=== PATIENT | male | born 1955 | race Two or more races ===

== ENCOUNTER 2020-04-01 08:09 | Outpatient (REF) | payer OTHER, SELFPAY ==
[2020-04-01 09:05] LABS: MANUAL DIFF FLAG NO
[2020-04-01 09:07] LABS: Basophils Percent Auto 0.3 % (0-2); Eosinophils Absolute Auto 0.5 X10*3/uL (0.0-0.4); Eosinophils Percent Auto 5.3 % (0-4); Hematocrit 37.6 % (42-52); Hemoglobin 13.5 g/dl (14.0-18.0); Imm Gran Abs Auto 0.02 X10*3/uL (0.00-0.03); Imm Gran Pct Auto 0.2 % (0.0-0.4); Lymphocytes Absolute Auto 1.7 X10*3/uL (1.2-4.9); Mean Corpuscular HGB Conc 35.9 g/dl (31.0-36.0); Mean Corpuscular Hemoglobin 32.3 pg (27.0-33.0); Mean Platelet Volume 10.4 fL (9.4-12.4); Monocytes Absolute Auto 0.9 X10*3/uL (0.1-1.2); Monocytes Percent Auto 10.5 % (2-11); Neutrophils Absolute Auto 5.7 X10*3/uL (2.0-8.3); Neutrophils Percent Auto 64.7 % (45-73); Platelet Count 195 X10*3/uL (160-400); Red Blood Count 4.18 X10*6/uL (4.60-5.80); Red Cell Distribution Width 13.6 % (11.0-16.0); White Blood Count 8.7 X10*3/uL (4.8-10.8)
[2020-04-01 09:35] LABS: Alanine Aminotransferase 58 U/L (0-40); Albumin Level 4.1 g/dL (3.5-5.0); Alkaline Phosphatase 68 U/L (39-117); Anion Gap 12 (12-20); Aspartate Amino Transferase 26 U/L (5-37); Bilirubin Total 0.6 mg/dL (0.0-1.0); Blood Urea Nitrogen 15 mg/dL (9-16); Calcium 8.9 mg/dL (8.4-10.2); Carbon Dioxide 29 mmol/L (22-29); Chloride 105 mmol/L (96-108); Cholesterol 148 mg/dL; Estimated Glomerular Filt Rate > 60; Glucose Fasting 101 mg/dL (60-99); HDL Cholesterol 47 mg/dL; LDL Cholesterol Calculated 74 mg/dl; Potassium 4.7 mmol/l (3.3-5.1); Sodium 141 mmol/L (135-145); Total Protein 6.4 g/dL (6.5-8.0); Triglycerides 136 mg/dL
[2020-04-01 09:58] LABS: Prostate Specific Antigen 0.33 ng/mL (<0.05-4.0)
== END 2020-04-01 08:10 | disposition home or self-care (01) ==
LOC: HO.LAB 08:09
PROVIDERS: PCP Internal Medicine; Visit Provider Internal Medicine
DX: Z00.00 Encounter for general adult medical examination without abnormal findings (principal); E78.00 Pure hypercholesterolemia, unspecified; I10 Essential (primary) hypertension; G47.33 Obstructive sleep apnea (adult) (pediatric)
CPT/HCPCS: 36415; 80053; 80061; 84153; 85025

== ENCOUNTER → 2020-04-10 15:13 | Outpatient (BNVA) | payer OTHER, SELFPAY | PROVIDERS: PCP Internal Medicine; Visit Provider Hospitalist | DX: G47.33 Obstructive sleep apnea (adult) (pediatric) (principal); R06.00 Dyspnea, unspecified; I51.9 Heart disease, unspecified; Z99.89 Dependence on other enabling machines and devices | CPT/HCPCS: 99212 ==

== ENCOUNTER → 2020-06-18 14:38 | Outpatient (BNVA) | payer OTHER, SELFPAY | PROVIDERS: PCP Internal Medicine; Visit Provider Internal Medicine Cardiovascular Disease | DX: I20.8 Other forms of angina pectoris (principal) | CPT/HCPCS: 99212 ==

== ENCOUNTER → 2020-09-10 13:38 | Outpatient (BNVA) | payer OTHER, SELFPAY | PROVIDERS: PCP Internal Medicine; Visit Provider Internal Medicine Cardiovascular Disease | DX: I20.8 Other forms of angina pectoris (principal) | CPT/HCPCS: 99212 ==

== ENCOUNTER 2020-09-23 07:59 | Outpatient (REF) | payer OTHER, SELFPAY ==
[2020-09-23 08:53] LABS: MANUAL DIFF FLAG NO
[2020-09-23 09:05] LABS: Basophils Percent Auto 0.6 % (0-2); Eosinophils Absolute Auto 0.3 X10*3/uL (0.0-0.4); Eosinophils Percent Auto 4.8 % (0-4); Hematocrit 41.7 % (42-52); Imm Gran Abs Auto 0.02 X10*3/uL (0.00-0.03); Imm Gran Pct Auto 0.3 % (0.0-0.4); Lymphocytes Percent Auto 29.6 % (20-40); Mean Corpuscular Hemoglobin 31.6 pg (27.0-33.0); Mean Platelet Volume 10.3 fL (9.4-12.4); Monocytes Absolute Auto 0.6 X10*3/uL (0.1-1.2); Monocytes Percent Auto 9.1 % (2-11); Neutrophils Absolute Auto 3.8 X10*3/uL (2.0-8.3); Neutrophils Percent Auto 55.6 % (45-73); Platelet Count 221 X10*3/uL (160-400); Red Blood Count 4.74 X10*6/uL (4.60-5.80); Red Cell Distribution Width 12.7 % (11.0-16.0); White Blood Count 6.7 X10*3/uL (4.8-10.8)
[2020-09-23 09:29] LABS: Alanine Aminotransferase 37 U/L (0-40); Albumin Level 4.3 g/dL (3.5-5.0); Alkaline Phosphatase 76 U/L (39-117); Anion Gap 11 (12-20); Aspartate Amino Transferase 19 U/L (5-37); Bilirubin Total 0.8 mg/dL (0.0-1.0); Blood Urea Nitrogen 12 mg/dL (9-16); Calcium 9.6 mg/dL (8.4-10.2); Carbon Dioxide 30 mmol/L (22-29); Chloride 105 mmol/L (96-108); Cholesterol 165 mg/dL; Estimated Glomerular Filt Rate > 60; Glucose Random 97 mg/dL (60-115); HDL Cholesterol 48 mg/dL; Iron 145 mcg/dL (45-160); LDL Cholesterol Calculated 95 mg/dl; Percent Iron Saturation 54 % (15-50); Potassium 4.7 mmol/L (3.3-5.1); Sodium 141 mmol/L (135-145); Total Iron Binding Capacity 267 mcg/dL (228-428); Total Protein 6.9 g/dL (6.5-8.0); Triglycerides 114 mg/dL; Unsaturated Iron Binding 122 ug/dL
== END 2020-09-23 08:00 | disposition home or self-care (01) ==
LOC: HO.LAB 07:59
PROVIDERS: PCP Internal Medicine; Visit Provider Internal Medicine
DX: I25.10 Atherosclerotic heart disease of native coronary artery without angina pectoris (principal); I10 Essential (primary) hypertension; E78.00 Pure hypercholesterolemia, unspecified; D64.9 Anemia, unspecified
CPT/HCPCS: 36415; 80053; 80061; 83540; 85025

== ENCOUNTER → 2020-10-16 14:32 | Outpatient (BNVA) | payer OTHER, SELFPAY | PROVIDERS: PCP Internal Medicine; Visit Provider Hospitalist | DX: G47.33 Obstructive sleep apnea (adult) (pediatric) (principal); M79.89 Other specified soft tissue disorders; R06.00 Dyspnea, unspecified; I51.9 Heart disease, unspecified; Z99.89 Dependence on other enabling machines and devices | CPT/HCPCS: 99212 ==

== ENCOUNTER → 2020-12-17 14:14 | Outpatient (BNVA) | payer OTHER, SELFPAY | PROVIDERS: PCP Internal Medicine; Referring Provider Internal Medicine; Visit Provider Internal Medicine Cardiovascular Disease | DX: I20.8 Other forms of angina pectoris (principal) | CPT/HCPCS: 93005; 99212 ==

== ENCOUNTER 2021-01-01 07:28 | Outpatient (REF) | payer OTHER, SELFPAY ==
[2021-01-01 07:46] LABS: MANUAL DIFF FLAG NO
[2021-01-01 08:24] LABS: Basophils Percent Auto 0.6 % (0-2); Eosinophils Absolute Auto 0.3 X10*3/uL (0.0-0.4); Eosinophils Percent Auto 5.2 % (0-4); Hematocrit 39.4 % (42-52); Hemoglobin 14.2 g/dl (14.0-18.0); Imm Gran Abs Auto 0.01 X10*3/uL (0.00-0.03); Imm Gran Pct Auto 0.2 % (0.0-0.4); Lymphocytes Absolute Auto 1.6 X10*3/uL (1.2-4.9); Lymphocytes Percent Auto 32.9 % (20-40); Mean Corpuscular Volume 88.7 fL (80-98); Mean Platelet Volume 10.2 fL (9.4-12.4); Monocytes Absolute Auto 0.6 X10*3/uL (0.1-1.2); Neutrophils Absolute Auto 2.4 X10*3/uL (2.0-8.3); Neutrophils Percent Auto 49.1 % (45-73); Platelet Count 202 X10*3/uL (160-400); Red Blood Count 4.44 X10*6/uL (4.60-5.80); Red Cell Distribution Width 12.5 % (11.0-16.0); White Blood Count 4.8 X10*3/uL (4.8-10.8)
[2021-01-01 08:55] LABS: Alanine Aminotransferase 32 U/L (0-40); Albumin Level 4.4 g/dL (3.5-5.0); Alkaline Phosphatase 87 U/L (39-117); Anion Gap 11 (12-20); Aspartate Amino Transferase 19 U/L (5-37); Bilirubin Total 0.5 mg/dL (0.0-1.0); Blood Urea Nitrogen 12 mg/dL (9-16); Calcium 9.4 mg/dL (8.4-10.2); Carbon Dioxide 26 mmol/L (22-29); Chloride 107 mmol/L (96-108); Estimated Glomerular Filt Rate > 60; Glucose Random 107 mg/dL (60-115); Potassium 4.6 mmol/L (3.3-5.1); Sodium 139 mmol/L (135-145); Total Protein 6.8 g/dL (6.5-8.0)
== END 2021-01-01 07:29 | disposition home or self-care (01) ==
LOC: HO.LAB 07:28
PROVIDERS: PCP Internal Medicine; Visit Provider Internal Medicine
DX: I10 Essential (primary) hypertension (principal); I25.10 Atherosclerotic heart disease of native coronary artery without angina pectoris; E78.00 Pure hypercholesterolemia, unspecified
CPT/HCPCS: 36415; 80053; 85025

== ENCOUNTER → 2021-03-23 13:47 | Outpatient (BNVA) | payer OTHER, SELFPAY | PROVIDERS: PCP Internal Medicine; Referring Provider Internal Medicine; Visit Provider Internal Medicine Cardiovascular Disease | DX: I20.8 Other forms of angina pectoris (principal); I10 Essential (primary) hypertension | CPT/HCPCS: 99212 ==

== ENCOUNTER 2021-03-26 08:08 | Outpatient (REF) | payer OTHER, SELFPAY ==
[2021-03-26 08:33] LABS: MANUAL DIFF FLAG NO
[2021-03-26 08:59] LABS: Basophils Percent Auto 0.5 % (0-2); Eosinophils Absolute Auto 0.3 X10*3/uL (0.0-0.4); Eosinophils Percent Auto 5.4 % (0-4); Hematocrit 41.5 % (42.0-52.0); Hemoglobin 14.9 g/dl (14.0-18.0); Imm Gran Abs Auto 0.01 X10*3/uL (0.00-0.03); Imm Gran Pct Auto 0.2 % (0.0-0.4); Lymphocytes Percent Auto 33.7 % (20-40); Mean Corpuscular HGB Conc 35.9 g/dl (31.0-36.0); Mean Corpuscular Hemoglobin 31.8 pg (27.0-33.0); Mean Corpuscular Volume 88.7 fL (80.0-98.0); Mean Platelet Volume 10.1 fL (9.4-12.4); Monocytes Absolute Auto 0.6 X10*3/uL (0.1-1.2); Monocytes Percent Auto 10.3 % (2-11); Neutrophils Percent Auto 49.9 % (45-73); Platelet Count 226 X10*3/uL (160-400); Red Blood Count 4.68 X10*6/uL (4.60-5.80); Red Cell Distribution Width 12.7 % (11.0-16.0); White Blood Count 5.9 X10*3/uL (4.8-10.8)
[2021-03-26 09:21] LABS: Alanine Aminotransferase 42 U/L (0-40); Albumin Level 4.4 g/dL (3.5-5.0); Alkaline Phosphatase 89 U/L (39-117); Anion Gap 9 (12-20); Aspartate Amino Transferase 19 U/L (5-37); Bilirubin Total 0.8 mg/dL (0.0-1.0); Blood Urea Nitrogen 10 mg/dL (9-16); Calcium 9.9 mg/dL (8.4-10.2); Carbon Dioxide 31 mmol/L (22-29); Chloride 106 mmol/L (96-108); Cholesterol 133 mg/dL; Estimated Glomerular Filt Rate > 60; Glucose Fasting 126 mg/dL (60-99); HDL Cholesterol 44 mg/dL; LDL Cholesterol Calculated 70 mg/dl; Potassium 4.9 mmol/L (3.3-5.1); Sodium 141 mmol/L (135-145); Total Protein 6.8 g/dL (6.5-8.0); Triglycerides 99 mg/dL
[2021-03-26 09:35] LABS: Prostate Specific Antigen 0.23 ng/mL (<0.05-4.0)
== END 2021-03-26 08:09 | disposition home or self-care (01) ==
LOC: HO.LAB 08:08
PROVIDERS: PCP Internal Medicine; Visit Provider Internal Medicine
DX: Z12.5 Encounter for screening for malignant neoplasm of prostate (principal); R35.1 Nocturia; G47.33 Obstructive sleep apnea (adult) (pediatric); E78.00 Pure hypercholesterolemia, unspecified; I10 Essential (primary) hypertension; I25.10 Atherosclerotic heart disease of native coronary artery without angina pectoris
CPT/HCPCS: 36415; 80053; 80061; 84153; 85025

== ENCOUNTER 2021-06-26 12:35 | Outpatient (REF) | payer OTHER, SELFPAY ==
[2021-06-26 13:40] LABS: Anion Gap 13 (12-20); Blood Urea Nitrogen 11 mg/dL (9-16); Calcium 9.5 mg/dL (8.4-10.2); Carbon Dioxide 27 mmol/L (22-29); Chloride 105 mmol/L (96-108); Estimated Glomerular Filt Rate > 60; Glucose Random 104 mg/dL (60-115); Potassium 4.5 mmol/L (3.3-5.1); Sodium 140 mmol/L (135-145)
[2021-06-26 14:17] LABS: Estimated Average Glucose 105 mg/dL; Hemoglobin A1c % 5.3 %
== END 2021-06-26 12:36 | disposition home or self-care (01) ==
LOC: HO.LAB 12:35
PROVIDERS: PCP Internal Medicine; Visit Provider Internal Medicine
DX: I25.10 Atherosclerotic heart disease of native coronary artery without angina pectoris (principal); I10 Essential (primary) hypertension; R73.03 Prediabetes
CPT/HCPCS: 36415; 80048; 83036

== ENCOUNTER → 2021-07-14 13:51 | Outpatient (BNVA) | payer OTHER, SELFPAY | PROVIDERS: PCP Internal Medicine; Visit Provider Hospitalist | DX: G47.33 Obstructive sleep apnea (adult) (pediatric) (principal); R06.00 Dyspnea, unspecified; M79.89 Other specified soft tissue disorders; I51.9 Heart disease, unspecified; Z99.89 Dependence on other enabling machines and devices | CPT/HCPCS: 99212 ==

== ENCOUNTER 2021-08-03 14:21 | Emergency (ER) | payer MEDICAID, SELFPAY ==
--- NOTE | ~2021-08-03 | XR_ITS ---
EXAMINATION: XR KNEE, RIGHT CLINICAL INFORMATION: Injured 1 month ago COMPARISON: None TECHNIQUE: Four views of the right knee. FINDINGS: The bones of the knee are in alignment, normal in mineralization and calcification. There is no acute fracture. Best visualized on internal oblique radiograph there is somewhat linear calcification within the medial compartment, possibly relating to chondrocalcinosis of the medial meniscus. Soft tissues are otherwise unremarkable. There is mild medial joint space narrowing and spurring at the margin of the joint space. And soft tissues are normal. No fracture or joint effusion. No joint effusion. XR/XR knee RT 2V IMPRESSION: Mild medial joint space loss suspected chondrocalcinosis of the medial meniscus. No acute fracture.
[2021-08-03 15:31] VITALS: BP 154/89; PULSE 77; RESP 16; TEMP 36.4; O2SAT 97; BMI 38.0
--- NOTE | 2021-08-03 19:19 | ED.GENADULT ---
HPI - General Adult General Chief complaint: Extremity Injury, Lower Stated complaint: Right knee pain Time Seen by Provider: 08/03/21 19:19 Source: patient Limitations: language barrier (Hospital state assessed properties director utilized) History of Present Illness HPI narrative: This is a 65-year-old male who about 6 weeks ago had twisted his rightknee. He was seen at the clinic at work and was told he just had inflammation. The patient continues to have pain and has anterolateral knee. He denies any swelling. The pain is worse with ambulation, especially worse after he worked all day and tries to get into his car. He has tried acetaminophen for pain. Pain is moderately severe, achy Related Data Home Medications Medication Instructions Recorded Confirmed aspirin 81 mg tablet,delayed 81 mg PO DAILY 04/10/20 03/23/21 release atorvastatin 80 mg tablet 80 mg PO DAILY 04/10/20 03/23/21 metoprolol succinate 100 mg 100 mg PO DAILY 04/10/20 03/23/21 tablet,extended release 24 hr nitroglycerin 0.4 mg sublingual 0.4 mg SUBLINGUAL Q5M PRN 04/10/20 03/23/21 tablet lisinopril 10 mg tablet 10 mg PO DAILY 07/14/21 Previous Rx's Medication Instructions Recorded compr.stocking,knee,long,large #1 ea 07/14/21 ibuprofen 400 mg tablet 400 mg PO Q6H PRN #30 tab 08/03/21 Allergies Allergy/AdvReac Type Severity Reaction Status Date / Time No Known Allergies Allergy Verified 08/03/21 19:12 Review of Systems Review of Systems: Yes Other (As per HPI) Constitutional: Constitutional: Denies fever(s) [facility] Past Medical History Medical History (Updated 08/03/21 @ 19:43 by Hussein Louis MD) Dyspnea Heart disease Limb swelling LOWELL on CPAP Surgical History No pertinent past surgical history Family History Family History Mother Arrhythmia HTN (hypertension) Father No problems noted. Social History Social History Alcohol intake: never Patient Tobacco Use Status: Never used Tobacco Advance Directives: No Physical Exam ED Vital Signs: Vital Signs - 24 hr 08/03/21 15:31 Temperature 97.5 F Pulse Rate 77 Respiratory Rate 16 Blood Pressure 154/89 H Pulse Oximetry 97 BMI result Body Mass Index 38.0 Const General: no acute distress Orientation/consciousness: patient oriented x3 HENMT Head: Yes normal to inspection General nose exam: Normal external nose present Mouth: moist mucous membranes Throat: Yes posterior oropharynx normal, Yes tonsils normal and Yes uvula midline Eyes Eyelids: Yes eyelids normal Conjunctivae: conjunctivae normal Pupils: Equal, round and reactive pupils present Neck Neck: Yes supple Resp Effort & Inspection: normal respiratory effort Auscultation: clear to auscultation bilaterally Cardio Rate: regular rate Rhythm: regular rhythm Heart sounds: S1 normal heart sound present, S2 normal heart sound present, no gallops, no murmurs and no rubs GI Inspection: No distended Palpation (GI): Soft to palpation and nontender Auscultation: normal bowel sounds Skin General skin exam: other (Warm and dry) Neuro General: patient oriented x3 and CN's II-XI intact bilaterally Cranial nerves: Yes Equal, round and reactive pupils present Extrem Other: Right knee without any effusion. No laxity in the AP direction, no pain with valgus or varus strain. No erythema or warmth. Mild tenderness to anterior knee at about the junction with upper tibia. General: Yes no pedal edema Psych Affect: normal affect Attitude: cooperative Course Course Course Narrative: Patient with a knee injury, 6 weeks ago, has had pain to the right knee since then. X-ray shows no fracture. Patient needs orthopedic follow-up. Will place in a knee immobilizer and patient can use ibuprofen and acetaminophen. Medical Decision Making Imaging Data Knee x ray: Radiologist's impression: IMPRESSION: Mild medial joint space loss suspected chondrocalcinosis of the medial meniscus. No acute fracture. Discharge Plan Discharge Clinical Impression: Acute knee pain Patient Disposition: Home, Self-Care Instructions: Knee Pain (ED) Additional Instructions: Follow-up with orthopedics. Wear the knee immobilizer for the next 5 days. He can take it off all sleeping. Use ibuprofen as prescribed. Prescriptions: New ibuprofen 400 mg tablet 400 mg PO Q6H PRN (Reason: pain) Qty: 30 0RF No Action lisinopril 10 mg tablet 10 mg PO DAILY 0RF (DME) compr.stocking,knee,long,large Misc See Rx Instructions .ROUTE .MEDSUPPLY Qty: 1 0RF Rx Instructions: [id number] metoprolol succinate 100 mg tablet extended release 24 hr 100 mg PO DAILY 0RF atorvastatin 80 mg tablet 80 mg PO DAILY 0RF aspirin 81 mg tablet,delayed release (DR/EC) 81 mg PO DAILY 0RF nitroglycerin 0.4 mg tablet, sublingual 0.4 mg sublingual Q5M PRN0RF Rx Instructions: do not exceed 3 doses per episode Referrals: Salvatore Davila MD [Physician] - 1 week Stand Alone Forms: Work/School Release Interventions: ED Discharge Assessment Last Done: 08/03/21 20:36 Discharge Date/Time: 08/03/21 20:38
[2021-08-03] MEDS: Ibuprofen 400 MG TABLET PO (20:31)
== END 2021-08-03 20:38 | disposition home or self-care (01) ==
PROVIDERS: Emergency Provider Emergency Medicine; PCP Internal Medicine
DX: M25.561 Pain in right knee (principal); Z79.899 Other long term (current) drug therapy; Z79.82 Long term (current) use of aspirin
CPT/HCPCS: 73560; 99283

== ENCOUNTER 2021-08-24 08:12 | Outpatient (REF) | payer OTHER, SELFPAY ==
--- NOTE | ~2021-08-24 | XR_ITS ---
EXAMINATION: XR KNEE AP STANDING. RIGHT KNEE CLINICAL INFORMATION: Pain right knee COMPARISON: None TECHNIQUE: AP bilateral standing view of the knees was obtained. [place] view right knee. FINDINGS: AP bilateral standing: There is severe loss of medial compartment right knee joint space. Minimal loss of lateral compartment right knee and medial lateral compartment left knee joint space. No loose bodies or bony erosive changes seen. The soft tissues are normal. Right knee: [place] view of the right knee reveals lateral patellar spurring. No bony erosive changes. No loose bodies. The soft tissues are normal. XR/XR knee standing BI IMPRESSION: Severe loss of medial compartment right knee joint space without loose bodies or bony erosive changes. Mild degenerative changes lateral compartment right knee and medial lateral compartment left knee. Right patellar spurring without bony erosive changes right knee. The patellar femoral joint space is maintained normal.
--- NOTE | ~2021-08-24 | XR_ITS ---
EXAMINATION: XR KNEE AP STANDING. RIGHT KNEE CLINICAL INFORMATION: Pain right knee COMPARISON: None TECHNIQUE: AP bilateral standing view of the knees was obtained. [place] view right knee. FINDINGS: AP bilateral standing: There is severe loss of medial compartment right knee joint space. Minimal loss of lateral compartment right knee and medial lateral compartment left knee joint space. No loose bodies or bony erosive changes seen. The soft tissues are normal. Right knee: [place] view of the right knee reveals lateral patellar spurring. No bony erosive changes. No loose bodies. The soft tissues are normal. XR/XR knee RT 1V IMPRESSION: Severe loss of medial compartment right knee joint space without loose bodies or bony erosive changes. Mild degenerative changes lateral compartment right knee and medial lateral compartment left knee. Right patellar spurring without bony erosive changes right knee. The patellar femoral joint space is maintained normal.
== END 2021-08-24 08:13 | disposition home or self-care (01) ==
LOC: HO.HOSX 08:12
PROVIDERS: Visit Provider Physician Assistant
DX: M17.11 Unilateral primary osteoarthritis, right knee (principal)
CPT/HCPCS: 20610; 73560; 73565; 99202; J1040

== ENCOUNTER 2021-09-09 08:13 | Outpatient (REF) | payer OTHER, SELFPAY ==
--- NOTE | ~2021-09-09 | US_ITS ---
EXAMINATION: US VENOUS ULTRASOUND WITH DOPPLER LOWER EXTREMITY, RIGHT CLINICAL INFORMATION: Right leg pain. COMPARISON: None TECHNIQUE: Ultrasound of the deep veins is performed from the hip to the calf with compression sonography and color and pulse Doppler assessment. Spectral analysis with color-flow imaging is performed. FINDINGS: There is normal venous compression and respiratory variation and augmented flow. The visualized common femoral vein, superficial femoral vein, profunda femoral vein, popliteal vein, and the trifurcation region shows no evidence of deep venous thrombosis. There is no significant popliteal fossa cyst. If the patient's symptoms persist, followup ultrasound in 5 days 7 days might be of value to exclude proximal propagation from a non-visualized calf vein. US/US venous duplex LE RT IMPRESSION: No DVT demonstrated in the right lower extremity.
== END 2021-09-09 08:14 | disposition home or self-care (01) ==
LOC: HO.HMGCX 08:13
PROVIDERS: PCP Internal Medicine; Visit Provider Physician Assistant
DX: M17.11 Unilateral primary osteoarthritis, right knee (principal); M79.89 Other specified soft tissue disorders
CPT/HCPCS: 93971

== ENCOUNTER → 2021-09-17 12:13 | Outpatient (BNVA) | payer OTHER, SELFPAY | PROVIDERS: PCP Internal Medicine; Visit Provider Orthopaedic Surgery | DX: M17.11 Unilateral primary osteoarthritis, right knee (principal); M23.91 Unspecified internal derangement of right knee | CPT/HCPCS: 99212 ==

== ENCOUNTER 2021-09-29 15:56 | Outpatient (REF) | payer OTHER, SELFPAY ==
--- NOTE | ~2021-09-29 | MR_ITS ---
EXAMINATION: MR KNEE WITHOUT CONTRAST, RIGHT CLINICAL INFORMATION: Primary osteoarthritis right knee. COMPARISON: X-ray of the right knee August 2021. TECHNIQUE: MRI of the knee without contrast was performed using routine sequences on a high-field scanner. FINDINGS: There is image degrading motion artifact limiting the exam. MENISCI: Medial Meniscus: Evaluation is limited because of motion artifact. Question slight signal abnormality and blunting of the junction of the posterior horn and body suspicious but not definitive for meniscal tear. Lateral Meniscus: Intact. LIGAMENTS: Cruciate: Intact. Collateral: Intact. EXTENSOR MECHANISM: Intact. ARTICULAR CARTILAGE/BONE: Patellofemoral Compartment: Small subchondral cystic change in the medial facet of the patella with overlying cartilage heterogeneity. Trochlear cartilage normal. Overall mild patellofemoral arthrosis. Medial Compartment: There is nonuniform up to high-grade cartilage loss and/or heterogeneity throughout the weightbearing portion of the compartment. There are small marginal osteophytes. Findings indicative of [id number] arthrosis. Lateral Compartment: Normal. JOINT FLUID AND BURSAE: Mild joint effusion. MR/MR knee RT wo con IMPRESSION: Exam limited by artifact related to patient motion throughout the exam. Possible tear of the medial meniscus. Osteoarthritis most prominent in the medial compartment being mild to moderate.
== END 2021-09-29 15:57 | disposition home or self-care (01) ==
LOC: HO.MRI 15:56
PROVIDERS: Visit Provider Orthopaedic Surgery
DX: M17.11 Unilateral primary osteoarthritis, right knee (principal); M23.91 Unspecified internal derangement of right knee
CPT/HCPCS: 73721

== ENCOUNTER → 2021-11-05 12:39 | Outpatient (BNVA) | payer OTHER, SELFPAY | PROVIDERS: PCP Internal Medicine; Visit Provider Orthopaedic Surgery | DX: M23.91 Unspecified internal derangement of right knee (principal) | CPT/HCPCS: 99212 ==

== ENCOUNTER → 2021-12-10 13:36 | Outpatient (BNVA) | payer MEDICAID, SELFPAY | PROVIDERS: PCP Internal Medicine; Referring Provider Internal Medicine; Visit Provider Nurse Practitioner Family | DX: Z01.810 Encounter for preprocedural cardiovascular examination (principal); I25.118 Atherosclerotic heart disease of native coronary artery with other forms of angina pectoris; I10 Essential (primary) hypertension; G47.33 Obstructive sleep apnea (adult) (pediatric); Z79.899 Other long term (current) drug therapy; Z99.89 Dependence on other enabling machines and devices | CPT/HCPCS: 93005; 99212 ==

== ENCOUNTER → 2021-12-15 13:07 | Outpatient (BNVA) | payer MEDICAID, SELFPAY | PROVIDERS: PCP Internal Medicine; Visit Provider Surgery Vascular Surgery | DX: Z01.818 Encounter for other preprocedural examination (principal); I83.11 Varicose veins of right lower extremity with inflammation | CPT/HCPCS: 99202 ==

== ENCOUNTER 2021-12-23 05:51 | Day surgery (SDC) | payer MEDICAID, SELFPAY ==
[2021-12-23] VITALS (7 sets, daily range): BP systolic 118–153; BP diastolic 78–84; PULSE 71–79; RESP 13–18; TEMP 36.2–36.6; O2SAT 97–98; BMI 39.5
--- NOTE | 2021-12-23 07:22 | HO.ANESPROP2 ---
HPI - Anesthesia Eval Consult details Narrative: 66 M for right knee scope CAD multivessel s/p CATH , was advised to have CABG but patient refused . Patient seen by cardiology and being medically managed . As per cardiology patient is at least Moderate risk from Cardiac perspective in the perioperative period . The risks explained to the patient , patient accepts the increased risks . Also discussed with the surgeon . LOWELL PMFSH Active Problems Active Problems: All Active Problems (Updated 12/17/21 @ 15:01 by Carmencita Carlson RN) Stable angina (Acute) Essential hypertension (Acute) Osteoarthritis of right knee (Acute) Internal derangement of right knee (Acute) Atherosclerotic cardiovascular disease (Acute) Hx of cardiac catheterization (Acute) Preop cardiovascular exam (Acute) Varicose veins of right lower extremity with inflammation (Acute) Limb swelling (Acute) Heart disease (Acute) Dyspnea (Acute) LOWELL on CPAP (Acute) Past Medical History Medical History CAD (coronary artery disease) Dyspnea Heart disease HTN (hypertension) Limb swelling On beta marley at home LOWELL on CPAP Pre-diabetes Family History Family History Mother Arrhythmia HTN (hypertension) Father No problems noted. Family history of problems with anesthesia: No Surgical History Surgical History (Updated 12/23/21 @ 06:34 by Maxine Groves RN) Hx of colonoscopy Hx of hemorrhoidectomy No pertinent past surgical history History of Problems with Anesthesia: No Social History Social History Alcohol intake: never Patient Tobacco Use Status: Never used Tobacco Meds Allergies Allergy/AdvReac Type Severity Reaction Status Date / Time No Known Allergies Allergy Verified 12/23/21 06:08 Active Medications: Current Medications Lactated Ringer's (Lr) 1,000 mls @ 50 mls/hr IVCONT .Q20H [facility] Home Medications Medication Instructions Recorded Confirmed Last Taken Type nitroglycerin 0.4 mg sublingual 0.4 mg sublingual Q5M PRN Chest 04/10/20 12/17/21 Unknown History tablet Pain Exam Exam Date and Time: December 23, 2021721 Height,Weight and Vital Signs: Height 5 ft 8 in Weight 117.934 kg Last Vital Signs Temp 97.9 F 12/23/21 06:24 Pulse 79 12/23/21 06:24 Resp 18 12/23/21 06:24 BP 153/82 H 12/23/21 06:24 Pulse Ox 97 12/23/21 06:24 O2 Del Method 12/23/21 06:24 Airway Mallampati Class: IV TM Dist: <=3cm Neck ROM: Full Loose/Missing/Broken Teeth: Yes (Multiple chipped teeth ) Heart: S1,S2 Lungs: b/l breath sounds Assessment and Plan Assessment Anesthesia Assessment: Anesthesia Plan Discussed and Chart Reviewed Final Anesthetic Review Family History of Problems with Anesthesia: No History of Problems with Anesthesia: No NPO: Yes ASA Class: IV Final Preanesthetic Review: Meds/Allgs Chart Reviewed, Consent Obtained/Reviewed and Anes Risks/Benef Reviewed Patient Risk: High Procedure Risk: Intermediate Anesthetic Plan Anesthetic Plan: GA Disposition: Standard PACU
[2021-12-23] MEDS: Lactated Ringers 1,000 ML 50 ML IVCONT (07:26)
--- NOTE | 2021-12-23 07:33 | MHC.SHP ---
Pre-Procedural Eval Section A Date of Service: 12/23/21 The patient is an INPATIENT: No Changes since office visit: Yes Patient answered all questions; No Cold of Flu in the past 2 weeks, No New Medical Problems and No Changes in Medication The History & Physical has been completed within 30 days and I have reviewed it.: Yes Section B Chief Complaint: knee pain Allergies: Allergies Allergy/AdvReac Type Severity Reaction Status Date / Time No Known Allergies Allergy Verified 12/23/21 06:08 Plan I have reviewed the history and physical and performed a pertinent physical examination on my patient. No changes have occurred unless specified.
--- NOTE | 2021-12-23 08:31 | PM.OP ---
Brief Operative Note Date of Service: 12/23/21 Pre-op diagnosis: Right knee MMT Post-op diagnosis: other (1) right knee mmt 2) right knee arthritis) Procedure: partial medial meniscectomy right knee with chondroplasty Implants: none Surgeon: Salvatore Davila MD Anesthesia: GETA and local Was an Grounding Engineer used for this Procedure?: No Estimated blood loss (mL): 5 Tourniquet time (min): 17 IV fluids (mL): 600 Pathology: none sent Condition: stable Disposition: PACU
--- NOTE | 2021-12-23 08:36 | P.OP_ITS ---
Operative Note Operative Note Date of Service: 12/23/21 Narrative: Date of Service: 12/23/21 Pre-op diagnosis: Right knee MMT Post-op diagnosis: other (1) right knee mmt 2) right knee arthritis) Procedure: partial medial meniscectomy right knee with chondroplasty Implants: none Surgeon: Salvatore Davila MD Anesthesia: GETA and local Was an Machine Brush Maker used for this Procedure?: No Estimated blood loss (mL): 5 Tourniquet time (min): 17 IV fluids (mL): 600 Pathology: none sent Condition: stable Disposition: PACU Procedure in detail: Patient was brought to the operating room placed supine on the arthroscopic table and prepped and draped in standard sterile fashion. A time-out was called to identify proper site proper procedure proper surgeon and IV antibiotics per weight were administered. I began by exsanguinating the limb and insufflating tourniquet to 300 mm Hg. Then made a standard anterolateral stab incision. The knee was insufflated with water and 30 degree arthroscope was placed. There was grade 2 fibrillations of the patella but the suprapatellar pouch and the gutters were clean. I descended into the medial compartment where I made my medial portal under direct visualization. There was obvious of complex tear of the body and posterior horn of the medial meniscus. Root was intact and there were grade 2 changes with throughout the medial compartment. I used a combination of biter shaver and cautery to remove unstable portions of the meniscus. Approximately 40% of the meniscal volume was removed. Once I was satisfied with this the ACL was examined and found to be intact and the lateral compartment also was without the need for intervention. I perfromed a chondroplaty of the MFC and the PF joint with the tissue ablator, I then removed all instrumentation and closed the portals with skin glue. 25 mL of 2% Marcaine with epinephrine was injected into the joint and the surrounding soft tissues. Patient was then placed in sterile dressing extubated brought recovery room stable condition. There were no known complications.
[2021-12-23] MEDS: Acetaminophen 325 MG TABLET 650 MG PO (09:09)
== END 2021-12-23 10:42 | disposition home or self-care (01) ==
PROVIDERS: PCP Internal Medicine; Visit Provider Orthopaedic Surgery
PROC: (CPT 29870; principal; 2021-12-23 07:30)
DX: S83.231A Complex tear of medial meniscus, current injury, right knee, initial encounter (principal); M17.11 Unilateral primary osteoarthritis, right knee; X58.XXXA Exposure to other specified factors, initial encounter; Y93.9 Activity, unspecified; Y92.9 Unspecified place or not applicable; Y99.9 Unspecified external cause status; I25.10 Atherosclerotic heart disease of native coronary artery without angina pectoris; I10 Essential (primary) hypertension; E78.5 Hyperlipidemia, unspecified; G47.33 Obstructive sleep apnea (adult) (pediatric); Z79.82 Long term (current) use of aspirin; Z79.899 Other long term (current) drug therapy; Z99.89 Dependence on other enabling machines and devices
CPT/HCPCS: 29881; A4649; J0171; J0690; J2250; J2795; J3010

== ENCOUNTER 2021-12-29 14:53 | Outpatient (REF) | payer MEDICAID, SELFPAY ==
[2021-12-29 15:10] LABS: MANUAL DIFF FLAG NO
[2021-12-29 16:02] LABS: Basophils Absolute Auto 0.1 X10*3/uL (0.0-0.2); Basophils Percent Auto 0.6 % (0-2); Eosinophils Absolute Auto 0.2 X10*3/uL (0.0-0.4); Eosinophils Percent Auto 1.7 % (0-4); Hematocrit 42.1 % (42.0-52.0); Hemoglobin 15.3 g/dl (14.0-18.0); Imm Gran Abs Auto 0.04 X10*3/uL (0.00-0.03); Imm Gran Pct Auto 0.4 % (0.0-0.4); Lymphocytes Absolute Auto 1.7 X10*3/uL (1.2-4.9); Lymphocytes Percent Auto 18.8 % (20-40); Mean Corpuscular HGB Conc 36.3 g/dl (31.0-36.0); Mean Corpuscular Volume 88.1 fL (80.0-98.0); Mean Platelet Volume 10.5 fL (9.4-12.4); Monocytes Percent Auto 11.6 % (2-11); Neutrophils Percent Auto 66.9 % (45-73); Platelet Count 198 X10*3/uL (160-400); Red Blood Count 4.78 X10*6/uL (4.60-5.80); Red Cell Distribution Width 12.5 % (11.0-16.0)
[2021-12-29 16:24] LABS: Anion Gap 19 (12-20); Blood Urea Nitrogen 14 mg/dL (9-16); C Reactive Protein 1.06 mg/dL (< or = 0.50); Calcium 9.6 mg/dL (8.4-10.2); Carbon Dioxide 23 mmol/L (22-29); Chloride 104 mmol/L (96-108); Estimated Glomerular Filt Rate > 60; Glucose Random 76 mg/dL (60-115); Potassium 4.2 mmol/L (3.3-5.1); Sodium 142 mmol/L (135-145)
[2021-12-29 17:50] LABS: Appearance Urine Clear; Color Urine Dark Yellow; Glucose Urine UA Negative (Negative); Leukocyte Esterase Urine Negative (Negative); Nitrite Urine Negative (Negative); PH 5.5 (5.0-9.0); Specific Gravity - Urine >= 1.030 (1.005-1.025); UMIC TRIGGER UACC YES; Urine Blood Negative (Negative); Urine Ketones Trace mg/dL (Negative); Urine Protein 30 (1+) mg/dL (Neg-Trace)
[2021-12-29 17:57] LABS: Bacteria Urine None Seen (None Seen); Hyaline Casts Urine 0-2 /LPF (0-2); RBC Urine 0-2 /HPF (0-2); Squamous Epithelial Cell Urine 0-2 /HPF (0-2); WBC Urine 0-5 /HPF (0-5)
== END 2021-12-29 14:54 | disposition home or self-care (01) ==
LOC: HO.LAB 14:53
PROVIDERS: PCP Internal Medicine; Visit Provider Internal Medicine
DX: I10 Essential (primary) hypertension (principal); G47.33 Obstructive sleep apnea (adult) (pediatric); M25.561 Pain in right knee
CPT/HCPCS: 36415; 80048; 81001; 85025; 86140; 87086

== ENCOUNTER → 2022-01-25 13:47 | Outpatient (BNVA) | payer MEDICAID, SELFPAY | PROVIDERS: PCP Internal Medicine; Visit Provider Hospitalist | DX: G47.33 Obstructive sleep apnea (adult) (pediatric) (principal); M79.89 Other specified soft tissue disorders; R06.00 Dyspnea, unspecified; I51.9 Heart disease, unspecified; Z99.89 Dependence on other enabling machines and devices | CPT/HCPCS: 99212 ==

== ENCOUNTER 2022-03-02 14:00 | Outpatient (RCR) | payer MEDICAID, SELFPAY ==
--- NOTE | 2022-01-07 13:47 | MHC.PT.EP ---
[facility] [place] [facility] [place] [facility] [place] [facility] [address] Lilly Coleman [address] [phone] F: [phone] F: [phone] F: [phone] F: [phone] Physical Therapy Plan of Care Date of Evaluation: Date of Surgery: 12/23/2021 Diagnosis: R medial meniscectomy 12/23 (RC + BB) Assessment: pt is a 66 yo male presenting to physical therapy w/ diagnosis of R medial meniscectomy. He has signs and symptoms including decreased ROM, impaired gait mechanics and functional mobility, strength deficits, and pain. He has difficulty with ADLs such as transferring, standing for long periods of time, dressing, showering, ambulation, stairs, and bending. Pt is a good candidate for skilled PT d/t the pathology of his condition, motivation, and comorbidities. Pt will benefit from skilled PT to improve knee ROM, gait mechanics, functional mobility, strength, and stretching. Frequency and Duration: The patient will be seen 2x/week, 6 weeks Short Term Goals: pt will be I w/ HEP to promote self management of condition. pt will improve R knee extension to 0* to improve tolerance to standing and WB. Penitentiary Goals: pt will improve R knee flexion and extension strength to 5/5 to improve tolerance to transferring. pt will demonstrate proper gait mechanics w/ a SPC to improve ambulation and tolerance to gait. Treatment Plan: Modalities to reduce pain, spasms and effusion. Manual therapy to restore motion and function. Therapeutic exercise to improve strength and flexibility. Neuromuscular re-education for posture and balance. Therapeutic activities to return to functional activities of daily living. Electronically signed by: Millie Chong PT, DPT Please sign and return to therapist. Thank you for your referral.
--- NOTE | 2022-03-03 18:12 | MHC.PT.DC ---
[facility] [place] [facility] [place] [facility] [place] [facility] [address] Lilly Coleman [address] [facility] [phone] F: [phone] F: [phone] F: [phone] F: [phone] Physical Therapy Discharge Report Diagnosis: R medial meniscectomy 12/23 (RC + BB) Date of Surgery: 12/23/2021 Date of Evaluation: 01/07/22 Date of Discharge: 03/03/22 Treatments to Date: 12 Cancellations to Date: 0 No Shows to Date: 0 Discharge Status: Improved Function Independent with HEP Discharge Summary: The patient overall has improved regarding his knee pain intensity and frequency. He ambulates most of the time without an assistive device but continues to use one axillary crutch as needed. He has been educated to discharge the crutch but he continues to use it occasionally. He has achieved all goals established at the initial evaluation. He is independent with his home exercise program. He is discharged from this physical therapy plan of care to his home exercise program. Electronically signed by: Millie Chong PT, DPT Please sign and return to therapist. Thank you for your referral.
== END 2022-03-03 18:13 | disposition home or self-care (01) ==
LOC: HO.PT 14:00
PROVIDERS: PCP Internal Medicine; Visit Provider Physician Assistant
DX: M17.11 Unilateral primary osteoarthritis, right knee (principal); M23.91 Unspecified internal derangement of right knee
CPT/HCPCS: 97110; 97150; 97162; 97530

== ENCOUNTER → 2022-04-21 13:20 | Outpatient (BNVA) | payer MEDICAID, SELFPAY | PROVIDERS: PCP Internal Medicine; Referring Provider Internal Medicine; Visit Provider Internal Medicine Cardiovascular Disease | DX: I25.118 Atherosclerotic heart disease of native coronary artery with other forms of angina pectoris (principal); I10 Essential (primary) hypertension | CPT/HCPCS: 99212 ==

== ENCOUNTER → 2022-04-27 10:23 | Outpatient (REF) | payer MEDICAID, SELFPAY ==
--- NOTE | 2022-04-27 10:25 | CA_ITS ---
Transthoracic Echocardiogram Patient (Last, First, Middle): Austin Ortega D Gender: Male Date of : 1955 Age: 66 Procedure Date: 04/27/2022 Procedure Type: Transthoracic Echocardiogram Location: OP Height: 172.72 cm Weight: 115.67 kg BSA: 2.27 m2 Heart Rate: bpm BP: 124 / 80 mmHg Glove Factory Sewer: Referring MD: Lane Carrera MD Cooker Mechanic: Lane Carrera MD Symptoms: I20.8 - Other forms of angina pectoris Study Quality: Adequate on Apical views ECG Rhythm: Sinus Conclusions: - Normal left ventricular size and systolic function. There is mildly increased left ventricular wall thickness. The visually estimated ejection fraction is between 65-70%. - Diastolic function is normal for age. - Mildly increased right ventricular cavity size. There is normal right ventricular systolic function. - There is mild dilatation of the ascending aorta measuring 3.50 cm. Findings Left Ventricle Normal left ventricular size and systolic function. There is mildly increased left ventricular wall thickness. The visually estimated ejection fraction is between 65-70%. Regional wall motion abnormalities can not be excluded due to suboptimal endocardial definition. Diastolic function is normal for age. Right Ventricle Mildly increased right ventricular cavity size. There is normal right ventricular systolic function. Atria The left atrium is normal in size. The right atrium is normal in size. Aortic Valve The aortic valve was not well visualized. There is no aortic valve stenosis. There is no aortic valve regurgitation. Mitral Valve Normal mitral valve structure and function. There is no mitral valve regurgitation. There is no mitral valve stenosis. Pulmonic Valve The pulmonic valve is likely normal. Tricuspid Valve Likely normal tricuspid valve structure and function. Normal right atrial pressure. There is no evidence of pulmonary hypertension. Great Vessels There is mild dilatation of the ascending aorta measuring 3.50 cm. Venous The inferior vena cava is normal in size and collapses greater than 50% with inspiration. Pericardium/Pleural There is no evidence of pericardial effusion. Prior Study Comparison No prior study available for comparison. Measurements 2D Linear Measurements IVSd: 1.23 0.6-0.9/0.6-1.0 cm LVIDd: 3.93 3.9-5.3/4.2-5.9 cm LVIDd Index: 1.73 2.4-3.2/2.2-3.1 cm/m2 LVIDs: 2.66 2.0-3.6 cm LVPWd: 1.29 0.7-1.1 cm Ao Root: 3.50 2.1-3.5 cm LA Diam: 3.30 2.7-3.8/3.0-4.0 cm LAIDs Index: 1.45 1.5-2.3 cm/m2 LV Mass: 215.94 67-162/88-224 g LV Mass Index: 95.13 43-95/49-115 g/m2 LVOT Diam: 2.10 3.0+(-)1.3 cm 2D Systolic Function EF 4C: 66.70 >55% EF 2C: 58.10 >55% EF BiP: 63.80 >55% Mitral Valve MV Pk E: 0.61 MV PK A: 0.84 MV Decel Time: 159.00 E/A: 0.70 E'Lateral: 7.18 E'Medial: 7.40 E/E' Med: 8.30 E/E' Lat: 8.50 PHT: 47.00 MVA PHT: 4.68 Decel Reagan: 3.85 Aortic Valve AoV Pk Alejandro: 1.51 AoV Mn Alejandro: 1.08 AoV VTI: 0.32 AoV Pk Grad: 9.00 Aov Mn Grad: 5.00 AAKASH Cont.VTI: 2.74 LVOT LVOT Pk Alejandro: 1.17 LVOT Mn Alejandro: 0.78 LVOT VTI: 0.25 LVOT Pk Grad: 5.00 LVOT Mn Grad: 3.00 LVOT Diam: 2.10 LVOT Area: 3.46 Diastolic Function MV Pk E: 0.61 MV Pk A: 0.84 E/A: 0.70 E'Medial: 7.40 E/E' Med: 8.30 E' Laterial: 7.18 E/E' Lat: 8.50 Right Ventricle TVS' Alejandro: 16.00 Tricuspid Valve TR Pk Alejandro: 2.23 TR Pk Grad: 20.00 RA Press: 3.00 RVSP: 23.00 Great Vessels Aorta Ao Root-2D: 3.50 2.0-3.7 cm Ao Asc: 3.50 2.1-3.4 cm Pulmonary Valve PV Pk Alejandro: 1.15 Peak PV Grad: 5.00 Updated in Other Vendor System with Status of Final Lane Carrera MD electronically signed on 04/30/2022 10:15:55 AM with status of Final
== END ==
LOC: HO.CARD 10:23
PROVIDERS: Visit Provider Internal Medicine Cardiovascular Disease
DX: I20.8 Other forms of angina pectoris (principal)
CPT/HCPCS: 93306

== ENCOUNTER → 2022-04-29 13:16 | Outpatient (BNVA) | payer MEDICAID, SELFPAY | PROVIDERS: Visit Provider Orthopaedic Surgery | DX: M17.11 Unilateral primary osteoarthritis, right knee (principal) | CPT/HCPCS: 99212 ==

== ENCOUNTER 2022-04-30 08:02 | Outpatient (REF) | payer MEDICAID, SELFPAY ==
--- NOTE | ~2022-04-30 | US_ITS ---
EXAMINATION: US LOWER EXTREMITY VENOUS (REFLUX EXAM), BILATERAL CLINICAL INDICATION: Chronic venous insufficiency with lower extremity varicose veins COMPARISON: None. TECHNIQUE: Color flow triplex imaging and compression Doppler was performed to evaluate both the deep and the superficial systems bilaterally. To evaluate the superficial system, the examination was performed in the upright position. Color-flow Doppler ultrasound and compression ultrasound were utilized. In addition, maneuvers were utilized to demonstrate reflux. FINDINGS: 1. DEEP VENOUS ULTRASOUND OF THE RIGHT LOWER EXTREMITY: Common Femoral Vein: Compressible, normal respiratory variation and augmented flow. Femoral Vein: Compressible, normal color flow and augmentation. Popliteal Vein: Compressible, normal augmentation. Deep Reflux: There is reflux seen in the popliteal vein measuring 1404 ms There is no evidence of a Alas's cyst. 2. SUPERFICIAL ULTRASOUND WITH DOPPLER OF RIGHT LOWER EXTREMITY: GREAT SAPHENOUS VEIN: Saphenofemoral Junction: 1.1 cm; Reflux: 0 ms Proximal Thigh: 0.7 cm; Reflux: 0 ms Mid Thigh: 0.3 cm; Reflux: 0 ms Above Knee: 0.3 cm; Reflux: 0 ms At Knee: 0.2 cm; Reflux: 0 ms Below Knee: 0.3 cm; Reflux: 0 ms Mid Calf: 0.4 cm; Reflux: 0 ms Ankle: 0.3 cm; Reflux: 0 ms DUPLICATED MEDIAL GREAT SAPHENOUS VEIN: Diameter: None Imaged Reflux: NA DUPLICATED LATERAL GREAT SAPHENOUS VEIN: Diameter: 0.3 cm Reflux: None SMALL SAPHENOUS VEIN: Proximal: 0.4 cm; Reflux: 0 ms Distal: 0.5 cm; Reflux: 0 ms VEIN OF GIACOMINI: None Imaged. PERFORATORS: Location: Proximal, mid and distal calf Size: 0.2 to 0.6 cm Reflux: Ranging from 2212 ms to 3224 ms VARICOSITIES: Location: Proximal calf and distal calf Size: 0.3 to 0.4 cm Reflux: 3188 ms 3. DEEP VENOUS ULTRASOUND OF THE LEFT LOWER EXTREMITY: Common Femoral Vein: Compressible, normal respiratory variation and augmented flow. Femoral Vein: Compressible, normal color flow and augmentation. Popliteal Vein: Compressible, normal augmentation. Deep Reflux: There is no evidence of reflux in the deep system in either the common femoral vein or the popliteal vein. There is no evidence of a Alas's cyst. 4. SUPERFICIAL ULTRASOUND WITH DOPPLER OF LEFT LOWER EXTREMITY: GREAT SAPHENOUS VEIN: Saphenofemoral Junction: 0.6 cm; Reflux: 0 ms Proximal Thigh: 0.8 cm; Reflux: 2996 ms Mid Thigh: 0.3 cm; Reflux: 0 ms Above Knee: 0.2 cm; Reflux: 0 ms At Knee: 0.2 cm; Reflux: 0 ms Below Knee: 0.3 cm; Reflux: 0 ms Mid Calf: 0.2 cm; Reflux: 0 ms Ankle: 0.3 cm; Reflux: 0 ms DUPLICATED MEDIAL GREAT SAPHENOUS VEIN: Diameter: None Imaged Reflux: NA DUPLICATED LATERAL GREAT SAPHENOUS VEIN: Diameter: None Imaged Reflux: NA SMALL SAPHENOUS VEIN: Proximal: 0.4 cm; Reflux: 0 ms Distal: 0.3 cm; Reflux: 0 ms VEIN OF GIACOMINI: None Imaged. PERFORATORS: Location: None significant Size: NA Reflux: NA VARICOSITIES: Location: None Imaged Size: NA Reflux: NA US/US venous duplex LE BI IMPRESSION: Right: No significant venous insufficiency or reflux in the great saphenous vein or small saphenous vein. There is deep venous reflux in the right popliteal vein. Small varicose veins as described above Left: Focal reflux in the left great saphenous vein in the proximal thigh. No significant reflux is seen otherwise in the great saphenous vein and small saphenous vein
== END 2022-04-30 08:03 | disposition home or self-care (01) ==
LOC: HO.US 08:02
PROVIDERS: PCP Internal Medicine; Visit Provider Surgery Vascular Surgery
DX: I83.893 Varicose veins of bilateral lower extremities with other complications (principal)
CPT/HCPCS: 93970

== ENCOUNTER → 2022-05-12 10:26 | Outpatient (BNVA) | payer MEDICAID, SELFPAY | PROVIDERS: PCP Internal Medicine; Visit Provider Surgery Vascular Surgery | DX: I83.11 Varicose veins of right lower extremity with inflammation (principal); I89.0 Lymphedema, not elsewhere classified | CPT/HCPCS: 99212 ==

== ENCOUNTER → 2022-06-14 12:56 | Outpatient (BNVA) | payer MEDICAID, SELFPAY | PROVIDERS: PCP Internal Medicine; Visit Provider Orthopaedic Surgery | DX: M17.11 Unilateral primary osteoarthritis, right knee (principal) | CPT/HCPCS: 99212 ==

== ENCOUNTER 2022-06-25 11:00 | Outpatient (RCR) | payer MEDICAID, SELFPAY ==
[2022-05-31 11:01] VITALS: BP 166/92; PULSE 77
--- NOTE | 2022-05-31 15:42 | MHC.PT.EP ---
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 Pt HAS DECR MOBILITY IN LIAM HIPS AND Rt KNEE ROM DEFICITS, DECR STRENGTH IN LUMBOPELVIC/ PROX LEs, AND PAIN IN Rt KNEE. FUNCTIONALLY, Pt HAS DECR KRISTEN TO STANDING, WALKING , SQUATTING, AND HE COMPENSATES WITH HIS UEs W ALL TRANSFERS. Pt WOULD BENEFIT FROM PT TO ADDRESS THE ABOVE FINDINGS, AND , TO ASSIST Pt IN MEETING HIS GOAL OF RTW. 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 Manual therapy to restore motion and function. Therapeutic exercise to improve strength and flexibility. Neuromuscular re-education for posture and balance. Therapeutic activities to return to functional activities of daily living. Electronically signed by: LILI GARCIA,PT Please sign and return to therapist. Thank you for your referral.
--- NOTE | 2022-06-25 12:04 | MHC.PT.DC ---
[facility] [place] Office [place] Office [place] Office [address] Lilly Coleman [address] [phone] F: [phone] F: [phone] F: [phone] F: [phone] Physical Therapy Discharge Report Diagnosis: RIGHT KNEE OA Date of Surgery: Date of Evaluation: 05/31/22 Date of Discharge: 06/25/22 Treatments to Date: 7 Cancellations to Date: 0 No Shows to Date: 0 Discharge Status: Achieved Goals Improved Function Independent with HEP Discharge Summary: Pt HAS RESPONDED WELL TO RE-ENTRY TO PT AND RE-ISSUE OF HEP AND FUNCTIONAL TASKS. HE DID NOT HAVE ANY Rt KNEE PAIN AND DEMON EFFICIENT GAIT MECH WITHOUT ANY ASST DEVICES ON LEVEL GROUND AND STAIRS. HE HAS IMPROVED OVERALL W FUNCTIONAL MOBILITY, ESPEC EVIDENT W IMPROVED LEFI SCORE -> 12/80 AT EVAL 05/31/22 AND 26/80 TODAY AT D/C. WE HAVE ANSWERED Pt'S QUESTIONS, HE DENIES CONCERNS AND , WE HAVE REINFORCED THE UTMOST IMPORTANCE OF HEP / FITNESS WALKING CONTINUITY, ESPEC HIS NEXT ORTHO F/U IS IN AUGUST 2022. Pt REMAINS OOW UNTIL THAT TIME. Electronically signed by: LILI GARCIA,PT Please sign and return to therapist. Thank you for your referral.
== END 2022-06-25 12:07 | disposition home or self-care (01) ==
LOC: HO.PT 11:00
PROVIDERS: PCP Internal Medicine; Visit Provider Orthopaedic Surgery
DX: M17.11 Unilateral primary osteoarthritis, right knee (principal)
CPT/HCPCS: 97110; 97140; 97161; 97530

== ENCOUNTER → 2022-08-10 13:29 | Outpatient (BNVA) | payer MEDICAID, SELFPAY | PROVIDERS: PCP Internal Medicine; Visit Provider Surgery Vascular Surgery | DX: I89.0 Lymphedema, not elsewhere classified (principal) | CPT/HCPCS: 99212 ==

== ENCOUNTER 2022-08-16 12:05 | Outpatient (REF) | payer MEDICAID, SELFPAY ==
--- NOTE | ~2022-08-16 | XR_ITS ---
EXAMINATION: XR KNEE, RIGHT XR KNEE AP STANDING CLINICAL INFORMATION: Pain. COMPARISON: Radiographs dated 08/24/2021. TECHNIQUE: Lateral and axial views of the right knee are submitted. AP bilateral standing view of the knees was obtained. FINDINGS: The lateral joint space compartment of the right knee is well-maintained. There is moderate narrowing of the medial joint space compartment. There is mild narrowing of the patellofemoral compartment, with peripheral osteophyte formation. No fracture or dislocation is seen. There is a small joint effusion. No foreign body is seen. The lateral and medial joint space compartments of the left knee are well-maintained. No significant varus or valgus configuration is seen bilaterally. XR/XR knee standing BI IMPRESSION: 1. There is moderate osteoarthritic change of the medial joint space compartment of the right knee, and mild osteoarthritic change is seen of the patellofemoral compartment. 2. The lateral and medial joint space compartments of the left knee are well-maintained. 3. No significant varus or valgus configuration is seen bilaterally.
--- NOTE | ~2022-08-16 | XR_ITS ---
EXAMINATION: XR PELVIS CLINICAL INFORMATION: Pain. COMPARISON: CT abdomen and pelvis dated 06/01/2008. TECHNIQUE: AP view of the pelvis. FINDINGS: The bones and soft tissues are normal. No fracture. There is mild subchondral sclerosis of the bilateral acetabular roofs. Sacroiliac and hip joints are otherwise normal. Pubic symphysis is normal. No abnormal soft tissue calcifications. XR/XR pelvis 1-2V IMPRESSION: There is very mild osteoarthritic change of the bilateral hips. No fracture or dislocation is seen.
--- NOTE | ~2022-08-16 | XR_ITS ---
EXAMINATION: XR KNEE, RIGHT XR KNEE AP STANDING CLINICAL INFORMATION: Pain. COMPARISON: Radiographs dated 08/24/2021. TECHNIQUE: Lateral and axial views of the right knee are submitted. AP bilateral standing view of the knees was obtained. FINDINGS: The lateral joint space compartment of the right knee is well-maintained. There is moderate narrowing of the medial joint space compartment. There is mild narrowing of the patellofemoral compartment, with peripheral osteophyte formation. No fracture or dislocation is seen. There is a small joint effusion. No foreign body is seen. The lateral and medial joint space compartments of the left knee are well-maintained. No significant varus or valgus configuration is seen bilaterally. XR/XR knee RT 2V IMPRESSION: 1. There is moderate osteoarthritic change of the medial joint space compartment of the right knee, and mild osteoarthritic change is seen of the patellofemoral compartment. 2. The lateral and medial joint space compartments of the left knee are well-maintained. 3. No significant varus or valgus configuration is seen bilaterally.
== END 2022-08-16 12:06 | disposition home or self-care (01) ==
LOC: HO.HOSX 12:05
PROVIDERS: Visit Provider Orthopaedic Surgery
DX: M17.11 Unilateral primary osteoarthritis, right knee (principal); I89.0 Lymphedema, not elsewhere classified; M25.559 Pain in unspecified hip
CPT/HCPCS: 20610; 72170; 73560; 73565; 99212; J1100

== ENCOUNTER → 2022-09-09 12:39 | Outpatient (BNVA) | payer MEDICAID, SELFPAY | PROVIDERS: PCP Internal Medicine; Referring Provider Internal Medicine; Visit Provider Nurse Practitioner Family | DX: I25.10 Atherosclerotic heart disease of native coronary artery without angina pectoris (principal); I10 Essential (primary) hypertension; G47.33 Obstructive sleep apnea (adult) (pediatric); E78.5 Hyperlipidemia, unspecified; Z99.89 Dependence on other enabling machines and devices; Z98.890 Other specified postprocedural states | CPT/HCPCS: 93005; 99212 ==

== ENCOUNTER 2022-09-15 08:12 | Outpatient (REF) | payer MEDICAID, SELFPAY ==
[2022-09-15 10:19] LABS: Alanine Aminotransferase 41 U/L (0-40); Alkaline Phosphatase 69 U/L (39-117); Anion Gap 11 (12-20); Aspartate Amino Transferase 22 U/L (5-37); Bilirubin Total 0.7 mg/dL (0.0-1.0); Blood Urea Nitrogen 12 mg/dL (9-16); Calcium 9.3 mg/dL (8.4-10.2); Carbon Dioxide 28 mmol/L (22-29); Chloride 107 mmol/L (96-108); Cholesterol 120 mg/dL; Estimated Glomerular Filt Rate > 60; Glucose Fasting 103 mg/dL (60-99); HDL Cholesterol 38 mg/dL; LDL Cholesterol Calculated 50 mg/dl; Potassium 3.9 mmol/L (3.3-5.1); Sodium 142 mmol/L (135-145); Total Protein 6.8 g/dL (6.5-8.0); Triglycerides 160 mg/dL
== END 2022-09-15 08:13 | disposition home or self-care (01) ==
LOC: HO.LAB 08:12
PROVIDERS: PCP Internal Medicine; Visit Provider Nurse Practitioner Family
DX: I25.10 Atherosclerotic heart disease of native coronary artery without angina pectoris (principal)
CPT/HCPCS: 36415; 80053; 80061

== ENCOUNTER → 2022-09-23 09:44 | Outpatient (BNVA) | payer MEDICAID, SELFPAY | PROVIDERS: PCP Internal Medicine; Visit Provider Nurse Practitioner Family ==

== ENCOUNTER 2023-02-11 21:34 | Emergency (ER) | payer MEDICARE, MEDICAID, SELFPAY ==
--- NOTE | ~2023-02-11 | CT_ITS ---
EXAMINATION: CT ABDOMEN AND PELVIS WITHOUT CONTRAST CLINICAL INFORMATION: Flank pain. COMPARISON: None available. TECHNIQUE: Multidetector volumetric imaging was performed from the superior aspect of the liver through the pubic symphysis. Sagittal and coronal reformatted images were obtained on the technologist's workstation. This CT examination was performed using dose optimization techniques as appropriate, variously including the following: *Automated exposure control *Adjustment of mA and/or kV according to patient size (this includes techniques or standardized protocols for targeted exams where dose is matched to indication/reason for exam; i.e. extremities or head) *Use of iterative reconstruction technique DLP: 947 mGy-cm FINDINGS: LUNG BASES: There is atelectatic change or scarring at the right lung base. There is a 5 mm nodule at the left lung base. LIVER, GALLBLADDER, AND BILIARY TREE: The liver is normal in size, shape, and attenuation. No focal hepatic lesion or biliary ductal dilatation is present. The gallbladder is unremarkable with no evidence of radiopaque gallstones, gallbladder wall thickening, or obvious pericholecystic inflammatory changes. PANCREAS: Unremarkable. SPLEEN: Unremarkable. ADRENAL GLANDS: Unremarkable. KIDNEYS AND URETERS: The kidneys are normal in size, shape, and attenuation. No hydronephrosis, hydroureter, or calculi seen. No perinephric stranding. BLADDER: Unremarkable. GASTROINTESTINAL TRACT: There are diverticula of the descending and the sigmoid colon without diverticulitis. The appendix is visualized and is within normal limits. ABDOMINAL WALL: There is a small umbilical hernia containing fat. LYMPH NODES: Normal. VASCULAR: Unremarkable. PELVIC VISCERA: Unremarkable. OSSEOUS STRUCTURES: There is diffuse thoracolumbar disc degenerative change most pronounced at L4-L5 and L5-S1. CT/CT abdomen pelvis wo IV con IMPRESSION: No acute intra-abdominal process. Atelectatic change and/or scarring at the right lung base. 5 mm nodule left lung base. Per the 2017 revised Fleischner Society guidelines, no routine follow up is necessarily required in low-risk patients, and consideration of 12-month followup CT is recommended for patients at high-risk for the development of pulmonary neoplasm. Fleischner guidelines were followed.
[2023-02-11 21:40] VITALS: BP 168/107; PULSE 77; RESP 16; TEMP 36.4; O2SAT 98; BMI 42.0
[2023-02-11 21:54] LABS: MANUAL DIFF FLAG NO
[2023-02-11 21:55] LABS: Basophils Percent Auto 0.5 % (0-2); Eosinophils Absolute Auto 0.3 X10*3/uL (0.0-0.4); Hematocrit 39.9 % (42.0-52.0); Hemoglobin 14.4 g/dl (14.0-18.0); Imm Gran Abs Auto 0.01 X10*3/uL (0.00-0.03); Imm Gran Pct Auto 0.1 % (0.0-0.4); Lymphocytes Absolute Auto 2.1 X10*3/uL (1.2-4.9); Mean Corpuscular HGB Conc 36.1 g/dl (31.0-36.0); Mean Corpuscular Hemoglobin 31.2 pg (27.0-33.0); Mean Corpuscular Volume 86.6 fL (80.0-98.0); Mean Platelet Volume 9.8 fL (9.4-12.4); Monocytes Absolute Auto 0.6 X10*3/uL (0.1-1.2); Monocytes Percent Auto 7.9 % (2-11); Neutrophils Absolute Auto 4.3 x10*3/uL (2.0-8.3); Neutrophils Percent Auto 58.5 % (45-73); Platelet Count 199 X10*3/uL (160-400); Red Blood Count 4.61 X10*6/uL (4.60-5.80); Red Cell Distribution Width 12.6 % (11.0-16.0); White Blood Count 7.3 X10*3/uL (4.8-10.8)
[2023-02-11 22:10] LABS: Alanine Aminotransferase 32 U/L (0-40); Albumin Level 4.1 g/dL (3.5-5.0); Alkaline Phosphatase 90 U/L (39-117); Anion Gap 9 (12-20); Aspartate Amino Transferase 16 U/L (5-37); Bilirubin Total 0.5 mg/dL (0.0-1.0); Blood Urea Nitrogen 12 mg/dL (9-16); Carbon Dioxide 30 mmol/L (22-29); Chloride 109 mmol/L (96-108); Creatinine Clr Calc Pharmacy 94.9; Estimated Glomerular Filt Rate > 60; Glucose Random 119 mg/dL (60-115); Potassium 4.2 mmol/L (3.3-5.1); Sodium 144 mmol/L (135-145); Total Protein 6.9 g/dL (6.5-8.0)
[2023-02-11 22:17] VITALS: BP 176/100; PULSE 82; RESP 16; TEMP 36.7; O2SAT 95
[2023-02-11 22:24] LABS: Appearance Urine Clear; Color Urine Yellow; Glucose Urine UA Negative (Negative); Leukocyte Esterase Urine Trace (Negative); Nitrite Urine Negative (Negative); PH 5.5 (5.0-9.0); UMIC TRIGGER UACC YES; Urine Blood Large (3+) (Negative); Urine Ketones Trace mg/dL (Negative); Urine Protein Trace mg/dL (Neg-Trace)
--- NOTE | 2023-02-11 22:25 | ED_ITS ---
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 R flank pain no n/v but has dark urine denies hx of renal colic MD elicited complaint: flank pain Pertinent past history: none Onset (ago): minute(s) (30) Pain Consistency: now resolved Location: R flank Severity: moderate Quality: stabbing Radiation: none Migration to: no migration Exacerbating factors: nothing Relieving factors: nothing Associated symptoms: other (dark urine) Related Data Home Medications Medication Instructions Recorded Confirmed nitroglycerin 0.4 mg sublingual 0.4 mg sublingual Q5M PRN Chest 04/10/20 09/09/22 tablet Pain CPAP (CPAP Machine/Device) 01/25/22 09/09/22 Previous Rx's Medication Instructions Recorded compr.stocking,knee,long,large #1 ea 07/14/21 ibuprofen 400 mg tablet 400 mg PO Q6H PRN pain #30 tabs 08/03/21 atorvastatin 80 mg tablet 80 mg PO DAILY #90 tabs 09/15/21 metoprolol succinate 100 mg 100 mg PO DAILY #90 tabs 09/15/21 tablet,extended release 24 hr lisinopril 40 mg tablet 40 mg PO DAILY #90 tabs 09/09/22 azelastine 137 mcg (0.1 %) nasal 2 spray intranasal BID #30 mL 09/13/22 spray aerosol aspirin 81 mg tablet,delayed 81 mg PO DAILY #90 tabs 12/08/22 release isosorbide mononitrate 30 mg 30 mg PO DAILY 90 days #90 tabs 01/12/23 tablet,extended release 24 hr fluticasone propionate 50 2 spray intranasal DAILY #16 grams 01/31/23 mcg/actuation nasal spray,suspension morphine 15 mg immediate release 15 mg PO TID PRN pain #10 tabs 02/12/23 tablet ondansetron 4 mg disintegrating 4 mg PO Q8H PRN nausea and 02/12/23 tablet vomiting #20 tabs tamsulosin 0.4 mg capsule 0.4 mg PO DAILY 5 days #5 caps 02/12/23 Allergies Allergy/AdvReac Type Severity Reaction Status Date / Time No Known Allergies Allergy Verified 09/23/22 10:08 Review of Systems Review of Systems Constitutional : No Fever, No Chills ENT/Mouth : No sore throat Eyes: No Eye Pain, No Swelling, No Redness Cardiovascular : No Chest Pain, No SOB Respiratory : No Cough, No Sputum, No Wheezing Gastrointestinal : no Nausea, no Vomiting, No Diarrhea, positive abdominal pain Genitourinary : pos flank pain, pos dark urine, no dysuria Musculoskeletal : No joint pain, No Myalgias Skin : No Skin Lesions, No rash Neuro : No Weakness, No Numbness, No Headache Psych : No Anxiety/Panic, No Depression Heme/Lymph: No Bruising, No Lymphadenopathy Endocrine : No Polyuria, No Polydipsia All other systems reviewed and are negative [facility] Past Medical History Attestation statement: The following information was validated with the patient. Source: old records reviewed Medical History On beta marley at home Pre-diabetes HTN (hypertension) CAD (coronary artery disease) Limb swelling Heart disease Dyspnea LOWELL on CPAP Surgical History History of right knee surgery (12/23/21) Hx of hemorrhoidectomy Hx of colonoscopy Family History Family History Mother Arrhythmia HTN (hypertension) Father No problems noted. Social History Social History Alcohol intake: never Patient Tobacco Use Status: Never used Tobacco Smoked in Last 30 Days: No Use of substances other than those prescribed or required for medical reasons: No Advance Directives: No Advance Directives Information Provided: Yes Physical Exam ED Vital Signs: Vital Signs - 24 hr 02/11/23 21:40 02/11/23 22:17 02/11/23 22:57 Temperature 97.6 F 98.1 F Pulse Rate 77 82 Pulse Rate [Monitor] 77 Respiratory Rate 16 16 Blood Pressure 168/107 H 176/100 H Pulse Oximetry 98 95 Oxygen Delivery Method Room Air Room Air 02/11/23 22:59 Temperature Pulse Rate 74 Pulse Rate [Monitor] Respiratory Rate 18 Blood Pressure 162/94 H Pulse Oximetry 95 Oxygen Delivery Method Room Air BMI result Body Mass Index 42.0 Appearance: Alert. Oriented X3. No acute distress. Eyes: Pupils equal, round and reactive to light. ENT: Pharynx normal. Neck: Normal inspection. Neck supple. CVS: Normal heart rate and rhythm. Pulses normal. Respiratory: No respiratory distress. Breath sounds normal. Abdomen: Soft and nontender. Skin: Skin warm and dry. Normal skin color. Normal skin turgor. Extremities: No lower extremity edema. No calf ttp Neuro: Oriented X 3. No motor deficit. No sensory deficit. Medical Decision Making Medical Decision Making [facility] Narrative: 67 yo male with PMH of HTN, HLD, heart disease, LOWELL on CPAP here with abrupt onset R flank pain that has since resolved. He has dark urine. He has no abdominal pain at this time. Will obtain labs, UA, CT scan for renal colic, PO morphine in case pain returns. Differential Diagnosis Differential Diagnoses: The differential diagnosis associated with the presentation includes UTI, renal colic Admission/Observation Consideration of admission/observation: Escalation of care including admission/observation considered not toxic, tolerating PO can be managed as outpatient Lab Data [facility] Lab Attestation statement: I reviewed the patient's lab results. 02/11/23 21:50 02/11/23 21:50 Labs: Lab Results 02/11/23 02/11/23 Range/Units 21:50 22:13 WBC 7.3 (4.8-10.8) X10*3/uL RBC 4.61 (4.60-5.80) X10*6/uL Hgb 14.4 (14.0-18.0) g/dl Hct 39.9 L (42.0-52.0) % MCV 86.6 (80.0-98.0) fL MCH 31.2 (27.0-33.0) pg MCHC 36.1 H (31.0-36.0) g/dl RDW 12.6 (11.0-16.0) % Plt Count 199 (160-400) X10*3/uL MPV 9.8 (9.4-12.4) fL Immature Gran % (Auto) 0.1 (0.0-0.4) % Neut % (Auto) 58.5 (45-73) % Lymph % (Auto) 29.0 (20-40) % Centre % (Auto) 7.9 (2-11) % Eos % (Auto) 4.0 (0-4) % Baso % (Auto) 0.5 (0-2) % Lymph # (Auto) 2.1 (1.2-4.9) X10*3/uL Centre # (Auto) 0.6 (0.1-1.2) X10*3/uL Eos # (Auto) 0.3 (0.0-0.4) X10*3/uL Baso # (Auto) 0.0 (0.0-0.2) X10*3/uL Abs Immat Gran (auto) 0.01 (0.00-0.03) X10*3/uL Absolute Neuts (auto) 4.3 (2.0-8.3) x10*3/uL Absolute Nucleated RBC 0.000 (0.0-0.012) X10*3/uL Nucleated RBC % (auto) 0.0 (0.0-0.2) /100WBC Sodium 144 (135-145) mmol/L Potassium 4.2 (3.3-5.1) mmol/L Chloride 109 H (96-108) mmol/L Carbon Dioxide 30 H (22-29) mmol/L Anion Gap 9 L (12-20) BUN 12 (9-16) mg/dL Creatinine 1.00 (0.5-1.4) mg/dL Estim Creat Clear Calc 94.9 Estimated GFR > 60 Random Glucose 119 H (60-115) mg/dL Calcium 9.0 (8.4-10.2) mg/dL Total Bilirubin 0.5 (0.0-1.0) mg/dL AST 16 (5-37) U/L ALT 32 (0-40) U/L Alkaline Phosphatase 90 (39-117) U/L Total Protein 6.9 (6.5-8.0) g/dL Albumin 4.1 (3.5-5.0) g/dL Urine Color Yellow Urine Appearance Clear Urine pH 5.5 (5.0-9.0) Ur Specific [place] 1.020 (1.005-1.025) Urine Protein Trace (Neg-Trace) mg/dL Urine Glucose (UA) Negative (Negative) mg/dL Urine Ketones Trace (Negative) mg/dL Urine Blood Large (3+) H (Negative) Urine Nitrite Negative (Negative) Ur Leukocyte Esterase Trace H (Negative) Urine RBC >20 H (0-2) /HPF Urine WBC 0-5 (0-5) /HPF Ur Squamous Epith Cells 0-2 (0-2) /HPF Urine Bacteria None Seen (None Seen) Hyaline Casts 0-2 (0-2) /LPF Independent Interpretation I performed an independent interpretation of an: CT Scan (ureteral stone about 1-2mm distal ureter) Radiology Impression Discussion of test interpretation with radiology: I have reviewed the radiologist's reading. (disagree) Independent Historian Clinical information obtained from an independent historian. History obtained from or confirmed by: Other (family) External Record Review External record reviewed: Inpatient record Prescription Management I considered prescription management with: Pain Medication and Other Medications Administered Discontinued Medications Generic Name Dose Route Start Last Admin Trade Name Freq PRN Reason Stop Dose Admin Morphine Sulfate 15 mg 02/11/23 22:33 02/11/23 22:54 Morphine Sulfate Immed Release 15 Mg Tablet PO 02/11/23 22:34 15 mg ONCE ONE Administration Ondansetron HCl 4 mg 02/11/23 22:33 02/11/23 22:54 Ondansetron Odt 4 Mg Tab.Rapdis TRANSLINGU 02/11/23 22:34 4 mg ONCE ONE Administration Discharge Plan Discharge Clinical Impression: Ureterolithiasis Patient Disposition: Home, Self-Care Instructions: Ureteral Stones (ED) Additional Instructions: return for fevers, vomiting, inability to urinate or any other concerns. if you feel as if you have not passed the stone by Tuesday please call Urology Regrese si tiene fiebre, v?mitos, incapacidad para orinar o cualquier otra inquietud. Si siente que no garg eliminado el c?lculo antes del mendoza, llame a Urolog?a. Prescriptions: New tamsulosin 0.4 mg capsule 0.4 mg PO DAILY 5 Days Qty: 5 0RF morphine 15 mg tablet 15 mg PO TID PRN (Reason: pain) Qty: 10 0RF Rx Instructions: partial fill okay; Partial Fill upon patient request. ondansetron 4 mg tablet,disintegrating 4 mg PO Q8H PRN (Reason: nausea and vomiting) Qty: 20 0RF No Action atorvastatin 80 mg tablet 80 mg PO DAILY Qty: 90 1RF metoprolol succinate 100 mg tablet extended release 24 hr 100 mg PO DAILY Qty: 90 1RF azelastine 137 mcg (0.1 %) aerosol,spray 2 spray intranasal BID Qty: 30 6RF aspirin 81 mg tablet,delayed release (DR/EC) 81 mg PO DAILY Qty: 90 3RF isosorbide mononitrate 30 mg tablet extended release 24 hr 30 mg PO DAILY 90 Days Qty: 90 3RF fluticasone propionate 50 mcg/actuation spray,suspension 2 spray intranasal DAILY Qty: 16 11RF ibuprofen 400 mg tablet 400 mg PO Q6H PRN (Reason: pain) Qty: 30 0RF (DME) compr.stocking,knee,long,large Misc See Rx Instructions .ROUTE .MEDSUPPLY Qty: 1 0RF Rx Instructions: [id number] nitroglycerin 0.4 mg tablet, sublingual 0.4 mg sublingual Q5M PRN (Reason: Chest Pain) Rx Instructions: do not exceed 3 doses per episode (DME) CPAP Machine/Device Device See Rx Instructions .Route Rx Instructions: As directed lisinopril 40 mg tablet 40 mg PO DAILY Qty: 90 1RF Referrals: Tracey Wilks MD [Physician] - (Tuesday if you have not passed stone) Print Language: Chadian
[2023-02-11 22:35] LABS: Bacteria Urine None Seen (None Seen); Hyaline Casts Urine 0-2 /LPF (0-2); RBC Urine >20 /HPF (0-2); Squamous Epithelial Cell Urine 0-2 /HPF (0-2); WBC Urine 0-5 /HPF (0-5)
[2023-02-11] MEDS: Ondansetron ODT 4 MG TAB.RAPDIS TRANSLINGU (22:54)
[2023-02-11] MEDS: Morphine Sulfate Immed Release 15 MG TABLET PO (22:54)
[2023-02-11 22:57] VITALS: PULSE 77
[2023-02-11 22:59] VITALS: BP 162/94; PULSE 74; RESP 18; O2SAT 95
[2023-02-12 00:43] VITALS: PULSE 82; RESP 18; O2SAT 96
== END 2023-02-12 00:44 | disposition home or self-care (01) ==
PROVIDERS: Emergency Provider Emergency Medicine
DX: N20.1 Calculus of ureter (principal); R10.9 Unspecified abdominal pain; Z79.899 Other long term (current) drug therapy
CPT/HCPCS: 36415; 74176; 80053; 81001; 85025; 99284

== ENCOUNTER 2023-03-14 12:56 | Outpatient (AMB) | payer MEDICARE, MEDICAID, SELFPAY ==
--- NOTE | 2023-03-14 13:03 | A.OFFVIS_ITS ---
Intake Intake Visit Reasons: New Prob- B/L knee pain Intake Note: Austin is a 67 year old male who presents today for a new problem visit with complaints of bilateral knee pain. Last injection 08/16/22 done in the right knee. He reports continued pain, injection was unhelpful. Allergies No Known Allergies Allergy (Verified 09/23/22 10:08) HPI New Prob- B/L knee pain HPI Details Austin is a 67 year old man who returns with complaints of bilateral knee pain. He was last seen for right knee OA, and injected on 08/18/22. He describes right knee swelling and pain. He was seen pain management but they have failed to follow up with him soon 0 frustrated. Having said that his right knee still swells bothers him. His left knee bothers him when he is standing from a seated position going up and down stairs. His left shoulder is bothering him for the last several months. This pain at night and pain with overhead motion. He denies injury. [facility] Medical History On beta marley at home Pre-diabetes HTN (hypertension) CAD (coronary artery disease) Limb swelling Heart disease Dyspnea LOWELL on CPAP Surgical History History of right knee surgery (12/23/21) Hx of hemorrhoidectomy Hx of colonoscopy Family History Mother Arrhythmia HTN (hypertension) Father No problems noted. Social History Alcohol intake: never Patient Tobacco Use Status: Never used Tobacco Review of Systems Const All systems reviewed & are unremarkable except as noted in HPI and below Physical Exam Const General: no acute distress, alert and awake Orientation/consciousness: patient oriented x3 HEENT Head: Yes normocephalic and Yes atraumatic Eyes EOM: EOMs intact bilaterally Resp Effort & Inspection: normal respiratory effort and able to speak in complete sentences Cardio Jugular venous distension: no JVD Skin General skin exam: turgor normal Rashes: no rashes Neuro General: patient oriented x3 Extrem Other: Right knee with moderate effusion. 0-110 degrees of motion. Tenderness to palpation medial joint Line. Left knee with lateral retropatellar tenderness to palpation only. No effusion. Full range of motion. Left shoulder with positive Garcia and Neer. Negative empty can. External rotation to 40 degrees. Full overhead motion with mild pain in the mid arc of abduction Psych Appearance: grossly normal Affect: normal affect Attitude: cooperative Office Procedures Joint Injection/Drain Joint Injection/Drain Details: Injected 1 mL of Decadron and 3 mL 1% lidocaine and 3 mL of 0.25% Marcaine. Site was prepped using aseptic technique. Patient tolerated the procedure well. Primary Site: left shoulder Secondary Site: right knee Approach Used: other (anterolateral for knee and posterior for shoulder) Coding - Large joint 37997 - Glenohumeral/Tronchanteric Bursa/Intraarticular Procedure code (CPT) selection complete Results Reviewed Results Reviewed: I personally reviewed relevant radiographs 1. There is moderate osteoarthritic change of the medial joint space compartment of the right knee, and mild osteoarthritic change is seen of the patellofemoral compartment. 2. The lateral and medial joint space compartments of the left knee are well-maintained. 3. No significant varus or valgus configuration is seen bilaterally. Assessment & Plan Assessment & Plan (1) Osteoarthritis of right knee: Code(s): M17.11 - Unilateral primary osteoarthritis, right knee Plan: Injected knee. F/u pain management for additional treatment (2) Bursitis of left shoulder: Code(s): M75.52 - Bursitis of left shoulder Plan: Injected left shoulder. PT for shoulder. Plan Scribed for Salvatore Davila MD by Marquis Ngo, medical laboratory specialist, on 03/14/23 at 1:20 PM, EST. Orders: Orders XR shoulder LT min 2V Today M25.519 - Pain in unspecified shoulder PT Evaluation and Treatment Today M75.52 - Bursitis of left shoulder Coding Level of Care Code Est Pt Level 4 (91915) Diagnoses Osteoarthritis of right knee M17.11 Bursitis of left shoulder M75.52 CPT Codes Coding - Large joint: 26841 - Large joint ([id number]) Coding - Joint 7: - Glenohumeral/Tronchanteric Bursa/Intraarticular ([id number])
== END 2023-03-14 14:34 | disposition home or self-care (01) ==
PROVIDERS: Visit Provider Orthopaedic Surgery
DX: M17.11 Unilateral primary osteoarthritis, right knee (principal); M25.562 Pain in left knee; M75.52 Bursitis of left shoulder
CPT/HCPCS: 20610; 99214

== ENCOUNTER 2023-03-14 12:56 | Outpatient (REF) | payer MEDICARE, MEDICAID, SELFPAY ==
--- NOTE | ~2023-03-14 | XR_ITS ---
EXAMINATION: XR SHOULDER, LEFT CLINICAL INFORMATION: Pain in shoulder. COMPARISON: None available. TECHNIQUE: Three views of the left shoulder. FINDINGS: Mild degenerative changes are present at the glenohumeral joint with some glenoid sclerosis and subchondral cyst formation. Minimal degenerative changes are present at the AC joint. Old, healed, left-sided rib fractures are seen. Some minimal calcification seen at the insertion of the supraspinatus head. XR/XR shoulder LT min 2V IMPRESSION: Mild degenerative changes at the glenohumeral joint with some minimal calcific tendinitis.
== END 2023-03-14 12:57 | disposition home or self-care (01) ==
LOC: HO.HOSX 12:56
PROVIDERS: Visit Provider Orthopaedic Surgery
DX: M17.11 Unilateral primary osteoarthritis, right knee (principal); M75.52 Bursitis of left shoulder
CPT/HCPCS: 20610; 73030; 99212; J0665; J1100

== ENCOUNTER 2023-05-03 14:18 | Emergency (ER) | payer MEDICARE, MEDICAID, SELFPAY ==
--- NOTE | ~2023-05-03 | CT_ITS ---
EXAMINATION: CT ABDOMEN AND PELVIS WITHOUT CONTRAST CLINICAL INFORMATION: Right flank pain. COMPARISON: CT abdomen pelvis dated 02/11/2023. TECHNIQUE: Multidetector volumetric imaging was performed from the superior aspect of the liver through the pubic symphysis. Sagittal and coronal reformatted images were obtained on the technologist's workstation. This CT examination was performed using dose optimization techniques as appropriate, variously including the following: *Automated exposure control *Adjustment of mA and/or kV according to patient size (this includes techniques or standardized protocols for targeted exams where dose is matched to indication/reason for exam; i.e. extremities or head) *Use of iterative reconstruction technique DLP: 1052 mGy-cm FINDINGS: LUNG BASES: There are stable 6 mm and 3 mm left lower lobe pulmonary nodules. There is no consolidation at the lung bases. There is no pleural effusion. Heart size is normal. No pericardial effusion. LIVER, GALLBLADDER, AND BILIARY TREE: The liver is normal in size, shape, and attenuation. No focal hepatic lesion or biliary ductal dilatation is present. The gallbladder is unremarkable with no evidence of radiopaque gallstones, gallbladder wall thickening, or obvious pericholecystic inflammatory changes. PANCREAS: Unremarkable. SPLEEN: Unremarkable. ADRENAL GLANDS: Unremarkable. KIDNEYS AND URETERS: The kidneys are normal in size, shape, and attenuation. No hydronephrosis, hydroureter, or calculi seen. No perinephric stranding. BLADDER: Unremarkable. GASTROINTESTINAL TRACT: The small bowel and colon are normal in caliber. There is sigmoid colon diverticulosis. There is no evidence of acute diverticulitis. The appendix is normal. ABDOMINAL WALL: There is a small fat-containing umbilical hernia. LYMPH NODES: No abdominal or pelvic lymphadenopathy. VASCULAR: No abdominal aortic aneurysm. PELVIC VISCERA: Unremarkable. OSSEOUS STRUCTURES: There is degenerative disease of the lower lumbar spine. CT/CT abdomen pelvis wo IV con IMPRESSION: No acute intra-abdominal/pelvic abnormality. Stable 6 mm and 3 mm left lower lobe pulmonary nodules. According to the UPDATED 2017 Fleischner Society recommendations, the advised follow-up imaging for multiple solid nodules, the largest measuring 6 mm or greater, is: LOW RISK PATIENT: CT at 3-6 months, then consider CT at 18-24 months. HIGH RISK PATIENT: CT at 3-6 months, then at 18-24 months. Fleischner guidelines were followed.
[2023-05-03 14:26] VITALS: BP 150/88; PULSE 83; RESP 18; TEMP 36.4; O2SAT 100; BMI 42.9
--- NOTE | 2023-05-03 14:27 | ED_ITS ---
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 Mode of arrival: ambulatory Limitations: no limitations History of Present Illness HPI narrative: 67 yo male with PMH of CAD, HTN, HLD, LOWELL, kidney stones here with c/o resolved R flank pain lasted about 2 hours no associated GI or pain no fevers no ttp at this time MD complaint: flank pain Onset (ago): day(s) (today) Location: abdomen Radiation: non-radiation Severity: mild Quality: aching Pain Consistency: now resolved Relieving factors: none Exacerbating factors: none Associated symptoms: denies other symptoms Treatments prior to arrival: none Related Data Home Medications Medication Instructions Recorded Confirmed nitroglycerin 0.4 mg sublingual 0.4 mg sublingual Q5M PRN Chest 04/10/20 09/09/22 tablet Pain CPAP (CPAP Machine/Device) 01/25/22 09/09/22 Previous Rx's Medication Instructions Recorded compr.stocking,knee,long,large #1 ea 07/14/21 ibuprofen 400 mg tablet 400 mg PO Q6H PRN pain #30 tabs 08/03/21 atorvastatin 80 mg tablet 80 mg PO DAILY #90 tabs 09/15/21 metoprolol succinate 100 mg 100 mg PO DAILY #90 tabs 09/15/21 tablet,extended release 24 hr azelastine 137 mcg (0.1 %) nasal 2 spray intranasal BID #30 mL 09/13/22 spray aerosol aspirin 81 mg tablet,delayed 81 mg PO DAILY #90 tabs 12/08/22 release isosorbide mononitrate 30 mg 30 mg PO DAILY 90 days #90 tabs 01/12/23 tablet,extended release 24 hr fluticasone propionate 50 2 spray intranasal DAILY #16 grams 01/31/23 mcg/actuation nasal spray,suspension morphine 15 mg immediate release 15 mg PO TID PRN pain #10 tabs 02/12/23 tablet ondansetron 4 mg disintegrating 4 mg PO Q8H PRN nausea and 02/12/23 tablet vomiting #20 tabs tamsulosin 0.4 mg capsule 0.4 mg PO DAILY 5 days #5 caps 02/12/23 lisinopril 40 mg tablet 40 mg PO DAILY #90 tabs 03/09/23 Allergies Allergy/AdvReac Type Severity Reaction Status Date / Time No Known Allergies Allergy Verified 09/23/22 10:08 Review of Systems 2 Review of Systems: Constitutional : No Fever, No Chills ENT/Mouth : No sore throat Eyes: No Eye Pain, No Swelling, No Redness Cardiovascular : No Chest Pain, No SOB Respiratory : No Cough, No Sputum, No Wheezing Gastrointestinal : no Nausea, no Vomiting, No Diarrhea, no abdominal pain Genitourinary : no Dysuria, no urinary frequency, no Hematuria, positive Flank Pain, no hesitancy Musculoskeletal : No joint pain, No Myalgias Skin : No Skin Lesions, No rash Neuro : No Weakness, No Numbness, No Headache Psych : No Anxiety/Panic, No Depression Heme/Lymph: No Bruising, No Lymphadenopathy Endocrine : No Polyuria, No Polydipsia All other systems reviewed and are negative [facility] Past Medical History Medical History On beta marley at home Pre-diabetes HTN (hypertension) CAD (coronary artery disease) Limb swelling Heart disease Dyspnea LOWELL on CPAP Surgical History History of right knee surgery (12/23/21) Hx of hemorrhoidectomy Hx of colonoscopy Family History Family History Mother Arrhythmia HTN (hypertension) Father No problems noted. Social History Social History Alcohol intake: never Patient Tobacco Use Status: Never used Tobacco Advance Directives: No Advance Directives Information Provided: No Physical Exam ED Vital Signs: Vital Signs - 24 hr 05/03/23 14:26 05/03/23 22:05 05/03/23 23:31 Temperature 97.5 F 98 F 98.5 F Pulse Rate 83 69 77 Respiratory Rate 18 18 17 Blood Pressure 150/88 H 155/80 H 164/95 H Pulse Oximetry 100 94 97 Oxygen Delivery Method Room Air Room Air Room Air BMI result Body Mass Index 42.9 Appearance: Alert. Oriented X3. No acute distress. Eyes: Pupils equal, round and reactive to light. ENT: Pharynx normal. Neck: Normal inspection. Neck supple. CVS: Normal heart rate and rhythm. Pulses normal. Respiratory: No respiratory distress. Breath sounds normal. Abdomen: Soft and nontender. Skin: Skin warm and dry. Normal skin color. Normal skin turgor. Extremities: No lower extremity edema. No calf ttp Neuro: Oriented X 3. No motor deficit. No sensory deficit. Course Course Course Narrative: RME- 67-year-old male presents for evaluation of right flank pain that started over the last few days. The pain waxes and wanes in intensity. Currently his pain is mild. He reports a history of kidney stones. Plan for labs, UA, CT scan without contrast Medical Decision Making Medical Decision Making [facility] Narrative: 67 yo male with PMH of CAD, HTN, HLD, LOWELL, kidney stones here with c/o resolved R flank pain but no n/v diarrhea fevers pain did resolved - at this time, labs UA and CT scan abdomen is benign no CP/SOB suspect possible passed stone Differential Diagnosis Differential Diagnoses: The differential diagnosis associated with the presentation includes renal colic, UTI Admission/Observation Consideration of admission/observation: Escalation of care including admission/observation considered Lab Data [facility] Lab Attestation statement: I reviewed the patient's lab results. 05/03/23 17:05 05/03/23 17:05 Labs: Lab Results 05/03/23 05/03/23 Range/Units 17:05 23:38 WBC 7.9 (4.8-10.8) X10*3/uL RBC 4.86 (4.60-5.80) X10*6/uL Hgb 15.3 (14.0-18.0) g/dl Hct 42.4 (42.0-52.0) % MCV 87.2 (80.0-98.0) fL MCH 31.5 (27.0-33.0) pg MCHC 36.1 H (31.0-36.0) g/dl RDW 12.7 (11.0-16.0) % Plt Count 200 (160-400) X10*3/uL MPV 10.7 (9.4-12.4) fL Immature Gran % (Auto) 0.3 (0.0-0.4) % Neut % (Auto) 67.4 (45-73) % Lymph % (Auto) 21.0 (20-40) % [place] % (Auto) 8.7 (2-11) % Eos % (Auto) 2.0 (0-4) % Baso % (Auto) 0.6 (0-2) % Lymph # (Auto) 1.7 (1.2-4.9) X10*3/uL [place] # (Auto) 0.7 (0.1-1.2) X10*3/uL Eos # (Auto) 0.2 (0.0-0.4) X10*3/uL Baso # (Auto) 0.1 (0.0-0.2) X10*3/uL Abs Immat Gran (auto) 0.02 (0.00-0.03) X10*3/uL Absolute Neuts (auto) 5.3 (2.0-8.3) x10*3/uL Absolute Nucleated RBC 0.000 (0.0-0.012) X10*3/uL Nucleated RBC % (auto) 0.0 (0.0-0.2) /100WBC Sodium 141 (135-145) mmol/L Potassium 4.7 (3.3-5.1) mmol/L Chloride 108 (96-108) mmol/L Carbon Dioxide 28 (22-29) mmol/L Anion Gap 10 L (12-20) BUN 11 (9-16) mg/dL Creatinine 0.93 (0.5-1.4) mg/dL Estim Creat Clear Calc 103.2 Estimated GFR > 60 Random Glucose 105 (60-115) mg/dL Calcium 9.7 D (8.4-10.2) mg/dL Total Bilirubin 0.5 (0.0-1.0) mg/dL AST 18 (5-37) U/L ALT 32 (0-40) U/L Alkaline Phosphatase 92 (39-117) U/L Total Protein 7.2 (6.5-8.0) g/dL Albumin 4.3 (3.5-5.0) g/dL Lipase 15 (8-78) U/L Urine Color Yellow Urine Appearance Clear Urine pH 5.5 (5.0-9.0) Ur Specific Conifer 1.025 (1.005-1.025) Urine Protein 30 (1+) H (Neg-Trace) mg/dL Urine Glucose (UA) Negative (Negative) mg/dL Urine Ketones Trace (Negative) mg/dL Urine Blood Large (3+) H (Negative) Urine Nitrite Negative (Negative) Ur Leukocyte Esterase Negative (Negative) Urine RBC >20 H (0-2) /HPF Urine WBC 0-5 (0-5) /HPF Ur Squamous Epith Cells 0-2 (0-2) /HPF Urine Bacteria None Seen (None Seen) Hyaline Casts 0-2 (0-2) /LPF Independent Interpretation I performed an independent interpretation of an: CT Scan (no stones) Radiology Impression Discussion of test interpretation with radiology: I have reviewed the radiologist's reading. Independent Historian Clinical information obtained from an independent historian. History obtained from or confirmed by: Spouse External Record Review External record reviewed: Inpatient record Discharge Plan Discharge Clinical Impression: Acute right flank pain Patient Disposition: Home, Self-Care Instructions: Flank Pain (ED) Additional Instructions: blood work was normal, no UTI, CT scan did not show stones and was normal. please return for worsening symptoms or concerns. take tylenol as needed for pain Los an?lisis de chan fueron normales, no hubo ITU, la tomograf?a computarizada no mostr? c?lculos y fue normal. Por favor regrese si mir s?ntomas o inquietudes empeoran. tome tylenol seg?n sea necesario para el dolor ten?a chan en la orina; vuelva a consultar con viera m?dico en meka semana. Sospecho que pasaste meka dustin. Prescriptions: No Action atorvastatin 80 mg tablet 80 mg PO DAILY Qty: 90 1RF metoprolol succinate 100 mg tablet extended release 24 hr 100 mg PO DAILY Qty: 90 1RF azelastine 137 mcg (0.1 %) aerosol,spray 2 spray intranasal BID Qty: 30 6RF aspirin 81 mg tablet,delayed release (DR/EC) 81 mg PO DAILY Qty: 90 3RF isosorbide mononitrate 30 mg tablet extended release 24 hr 30 mg PO DAILY 90 Days Qty: 90 3RF fluticasone propionate 50 mcg/actuation spray,suspension 2 spray intranasal DAILY Qty: 16 11RF lisinopril 40 mg tablet 40 mg PO DAILY Qty: 90 3RF ibuprofen 400 mg tablet 400 mg PO Q6H PRN (Reason: pain) Qty: 30 0RF tamsulosin 0.4 mg capsule 0.4 mg PO DAILY 5 Days Qty: 5 0RF morphine 15 mg tablet 15 mg PO TID PRN (Reason: pain) Qty: 10 0RF Rx Instructions: partial fill okay; Partial Fill upon patient request. ondansetron 4 mg tablet,disintegrating 4 mg PO Q8H PRN (Reason: nausea and vomiting) Qty: 20 0RF (DME) compr.stocking,knee,long,large Misc See Rx Instructions .ROUTE .MEDSUPPLY Qty: 1 0RF Rx Instructions: [id number] nitroglycerin 0.4 mg tablet, sublingual 0.4 mg sublingual Q5M PRN (Reason: Chest Pain) Rx Instructions: do not exceed 3 doses per episode (DME) CPAP Machine/Device Device See Rx Instructions .Route Rx Instructions: As directed Print Language: Syrian
[2023-05-03 17:11] LABS: MANUAL DIFF FLAG NO
[2023-05-03 17:21] LABS: Basophils Absolute Auto 0.1 X10*3/uL (0.0-0.2); Basophils Percent Auto 0.6 % (0-2); Eosinophils Absolute Auto 0.2 X10*3/uL (0.0-0.4); Hematocrit 42.4 % (42.0-52.0); Hemoglobin 15.3 g/dl (14.0-18.0); Imm Gran Abs Auto 0.02 X10*3/uL (0.00-0.03); Imm Gran Pct Auto 0.3 % (0.0-0.4); Lymphocytes Absolute Auto 1.7 X10*3/uL (1.2-4.9); Mean Corpuscular HGB Conc 36.1 g/dl (31.0-36.0); Mean Corpuscular Hemoglobin 31.5 pg (27.0-33.0); Mean Corpuscular Volume 87.2 fL (80.0-98.0); Mean Platelet Volume 10.7 fL (9.4-12.4); Monocytes Absolute Auto 0.7 X10*3/uL (0.1-1.2); Monocytes Percent Auto 8.7 % (2-11); Neutrophils Absolute Auto 5.3 x10*3/uL (2.0-8.3); Neutrophils Percent Auto 67.4 % (45-73); Platelet Count 200 X10*3/uL (160-400); Red Blood Count 4.86 X10*6/uL (4.60-5.80); Red Cell Distribution Width 12.7 % (11.0-16.0); White Blood Count 7.9 X10*3/uL (4.8-10.8)
[2023-05-03 17:28] LABS: Alanine Aminotransferase 32 U/L (0-40); Albumin Level 4.3 g/dL (3.5-5.0); Alkaline Phosphatase 92 U/L (39-117); Anion Gap 10 (12-20); Aspartate Amino Transferase 18 U/L (5-37); Bilirubin Total 0.5 mg/dL (0.0-1.0); Blood Urea Nitrogen 11 mg/dL (9-16); Calcium 9.7 mg/dL (8.4-10.2); Carbon Dioxide 28 mmol/L (22-29); Chloride 108 mmol/L (96-108); Creatinine Clr Calc Pharmacy 103.2; Estimated Glomerular Filt Rate > 60; Glucose Random 105 mg/dL (60-115); Lipase 15 U/L (8-78); Potassium 4.7 mmol/L (3.3-5.1); Sodium 141 mmol/L (135-145); Total Protein 7.2 g/dL (6.5-8.0)
[2023-05-03 22:05] VITALS: BP 155/80; PULSE 69; RESP 18; TEMP 36.6; O2SAT 94
[2023-05-03 23:31] VITALS: BP 164/95; PULSE 77; RESP 17; TEMP 36.9; O2SAT 97
[2023-05-03 23:45] LABS: Appearance Urine Clear; Color Urine Yellow; Glucose Urine UA Negative (Negative); Leukocyte Esterase Urine Negative (Negative); Nitrite Urine Negative (Negative); PH 5.5 (5.0-9.0); Specific Gravity - Urine 1.025 (1.005-1.025); UMIC TRIGGER UACC YES; Urine Blood Large (3+) (Negative); Urine Ketones Trace mg/dL (Negative); Urine Protein 30 (1+) mg/dL (Neg-Trace)
[2023-05-03 23:50] LABS: Bacteria Urine None Seen (None Seen); Hyaline Casts Urine 0-2 /LPF (0-2); RBC Urine >20 /HPF (0-2); Squamous Epithelial Cell Urine 0-2 /HPF (0-2); WBC Urine 0-5 /HPF (0-5)
== END 2023-05-04 00:15 | disposition home or self-care (01) ==
PROVIDERS: Physician Assistant; Emergency Provider Emergency Medicine
DX: R10.9 Unspecified abdominal pain (principal); I25.10 Atherosclerotic heart disease of native coronary artery without angina pectoris; I10 Essential (primary) hypertension; Z79.899 Other long term (current) drug therapy; Z87.442 Personal history of urinary calculi
CPT/HCPCS: 36415; 74176; 80053; 81001; 83690; 85025; 99283; 99284

== ENCOUNTER 2023-05-04 14:32 | Outpatient (AMB) | payer MEDICARE, MEDICAID, SELFPAY ==
--- NOTE | 2023-05-04 14:39 | A.OFFVIS_ITS ---
Intake Vital Signs 05/04/23 14:40 05/04/23 15:06 Height 5 ft 8 in Weight 289 lb 3.944 oz BMI 44.0 BP 160/70 H 132/80 Blood Pressure Location Lt brachial Lt brachial Position Sitting Sitting Pulse 82 Pulse Source Pulse Oximeter Intake Visit Reasons: 6 mnth f/up Intake Note: pt its here in office for a 6 mnth f/up pt states that he its feeling fine. Consulting Property Manager Required: Yes Consulting Property Manager Name: [id number] Accompanied by: Self / Same As Patient Allergies No Known Allergies Allergy (Verified 09/23/22 10:08) HPI HPI Comments History of Present Illness Details 67-year-old male presents today for a 6 month follow-up/. he has a medical history of HTN,. hyperlipidemia, pre-diabetes, LOWELL, and CAD. In a past cardiac catheterization he had multivessle disease and was referred for a CABG but he declined surgery at that time. He reports he is not short of breath but he still has been occasionally getting the burning in his chest when he goes up stairs. Last a few minutes and then resolved. He states he is not very active due to being out of work for knee pain and has gained weight. He reports he is compliant with his medications. [facility] Medical History (Updated 05/05/23 @ 00:01 by Marques Shah) Chest pain On beta marley at home Pre-diabetes HTN (hypertension) CAD (coronary artery disease) Limb swelling Heart disease Dyspnea LOWELL on CPAP Surgical History History of right knee surgery (12/23/21) Hx of hemorrhoidectomy Hx of colonoscopy Family History Mother Arrhythmia HTN (hypertension) Father No problems noted. Social History Alcohol intake: never Patient Tobacco Use Status: Never used Tobacco Review of Systems Const Denies chills, Denies fatigue, Denies fever(s), Denies frequent falls, Denies weakness, Denies weight gain and Denies weight loss ENT Denies dizziness Card Denies chest pain, Denies leg edema, Denies lightheadedness, Denies palpitations, Denies dyspnea and Denies dyspnea on exertion Resp Denies cough, Denies dyspnea and Denies dyspnea on exertion GI Denies hematochezia Musc Denies abnormal gait, Denies muscle weakness, Denies numbness, Denies radiating pain into limb and Denies tingling Neuro Denies abnormal gait, Denies dizziness, Denies frequent falls, Denies numbness, Denies tingling and Denies weakness Endo Denies fatigue and Denies palpitations Physical Exam Vital Signs: Last Vital Signs Pulse 82 05/04/23 14:40 BP 132/80 05/04/23 15:06 BMI result Body Mass Index 44.0 Assessment & Plan Assessment & Plan (1) Essential hypertension: Code(s): I10 - Essential (primary) hypertension (2) Chest pain: Code(s): R07.9 - Chest pain, unspecified (3) Atherosclerotic cardiovascular disease: Code(s): I25.10 - Atherosclerotic heart disease of [place] coronary artery without angina pectoris (4) Hx of cardiac catheterization: Comment: 08/31/2019, proximal LAD 80% stenosis, mid LAD 100%, 1st diagonal 60%, 2nd diagonal 70%, left circumflex 95%, 2nd OM 80%, RCA mid 100% stenosis Code(s): Z98.890 - Other specified postprocedural states Plan History of CAD and 3 vessle coronary artery disease with prior referral for CABG with Dr Tony Miranda. He declined surgery at that time. He is now interested to be re-evaluated for CABG Continue aspirin indefinitely. Continue high-dose atorvastatin, metoprolol, isosorbide, lisinopril. Blood pressure initally elevated - rechecked by me and improved. Last LD 09/15/22 50. Will have him call Dr Fonseca office for evaulation. Orders: Orders CA lexiscan stress w domingo 05/04/23 R07.9 - Chest pain, unspecified NM cardiolite stress test 05/04/23 R07.9 - Chest pain, unspecified Coding Level of Care Code Est Pt Level 3 (30413) Diagnoses Essential hypertension I10 Chest pain R07.9 Atherosclerotic cardiovascular disease I25.10 Hx of cardiac catheterization Z98.890
[2023-05-04 14:40] VITALS: BP 160/70; PULSE 82; BMI 44.0
[2023-05-04 15:06] VITALS: BP 132/80
== END 2023-05-04 15:36 | disposition home or self-care (01) ==
PROVIDERS: PCP Internal Medicine; Visit Provider Nurse Practitioner
DX: I10 Essential (primary) hypertension (principal); R07.9 Chest pain, unspecified; I25.10 Atherosclerotic heart disease of native coronary artery without angina pectoris; Z98.890 Other specified postprocedural states
CPT/HCPCS: 99213

== ENCOUNTER → 2023-05-04 14:32 | Outpatient (BNVA) | payer MEDICARE, OTHER, SELFPAY | PROVIDERS: PCP Internal Medicine; Visit Provider Nurse Practitioner | DX: I10 Essential (primary) hypertension (principal); R07.9 Chest pain, unspecified; I25.10 Atherosclerotic heart disease of native coronary artery without angina pectoris; Z79.899 Other long term (current) drug therapy | CPT/HCPCS: 99212 ==

== ENCOUNTER 2023-05-06 14:00 | Outpatient (RCR) | payer MEDICARE, OTHER, SELFPAY ==
--- NOTE | 2023-04-15 15:37 | MHC.PT.EP ---
[facility] [place] Office [place] Office [place] Office [address] Lilly Coleman [address] [phone] F: [phone] F: [phone] F: [phone] F: [phone] Physical Therapy Plan of Care Date of Evaluation: 04/15/23 Date of Surgery: NA Diagnosis: BURSITIS OF L SHOULDER Assessment: Pt IS 67 YO RHD M REFERRED TO PT FROM [facility]THO (DR STOUT) WITH L SHOULDER BURSITIS. HAD CORTISONE INJECTION ON 03/14/23 WITH SIGNIFICANT PAIN RELIEF. PRESENTS TO PT WITH POOR POSTURE WITH LIMITED END ROM L SHLDER WITH SLIGHT DECREASE IN RC/UPPER BACK STRENGTH NOTED. SHOULD BENEFIT FROM PT TO ADDRESS THESE ISSUES Frequency and Duration: The patient will be seen 1-2X/WK X 4 WKS Short Term Goals: 1. INCREASED POSTURE AWARENESS AND AWARENESS SHLDER CARE 2. I HEP WITH DC EX PLAN Longterm Goals: 1. DECREASED PAIN L SHLDER AT LEAST 50% WITH ADLS 2. INCREASED L SHLDER ROM 5-10 DEGREES T/O Treatment Plan: Modalities to reduce pain, spasms and effusion. Manual therapy to restore motion and function. Therapeutic exercise to improve strength and flexibility. Neuromuscular re-education for posture and balance. Therapeutic activities to return to functional activities of daily living. Electronically signed by: ROSALINDA REID PT Please sign and return to therapist. Thank you for your referral.
--- NOTE | 2023-05-06 16:15 | MHC.PT.DC ---
[facility] [place] Office [place] Office [place] Office [address] [phone] F: [phone] F: [phone] F: [phone] F: [phone] Physical Therapy Discharge Report Diagnosis: BURSITIS OF L SHOULDER Date of Surgery: NA Date of Evaluation: 04/15/23 Date of Discharge: 05/06/23 Treatments to Date: 7 Cancellations to Date: No Shows to Date: Discharge Status: Achieved Goals Improved Function Independent with HEP Patient Elected to Stop Discharge Summary: PER NOTE FROM 05/06/23 BY [facility] ATTENDANT Pt is independent with HEP, AROM WFLs for all planes. Significant improvement in SPADI.' Electronically signed by: ROSALINDA REID PT Please sign and return to therapist. Thank you for your referral.
== END 2023-05-06 16:19 | disposition home or self-care (01) ==
LOC: HO.PT 14:00
PROVIDERS: PCP Internal Medicine; Visit Provider Orthopaedic Surgery
DX: M75.52 Bursitis of left shoulder (principal)
CPT/HCPCS: 97110; 97161; 97530

== ENCOUNTER 2023-06-16 12:35 | Outpatient (AMB) | payer MEDICARE, MEDICAID, SELFPAY ==
[2023-06-16 13:04] VITALS: BP 146/80; PULSE 82; BMI 43.8
--- NOTE | 2023-06-16 13:04 | MHC.OFFVIS ---
Intake Vital Signs 06/16/23 13:04 Height 5 ft 8 in Weight 287 lb 14.779 oz BMI 43.8 BP 146/80 H Blood Pressure Location Lt brachial Position Sitting Pulse 82 Intake Visit Reasons: 1 mnth f/up Intake Note: 1 month follow up PT feels good Electric Dolly Operator Required: Yes Electric Dolly Operator Name: GEOVANNY Trevino [id number] Allergies No Known Allergies Allergy (Verified 09/23/22 10:08) HPI HPI Comments History of Present Illness Details 67-year-old male presents today for a follow-up. He has a medical history of HTN,. hyperlipidemia, pre-diabetes, LOWELL, and CAD. In a past cardiac catheterization he had multi-vessel disease and was referred for a CABG He reports has been doing well. He denies chest pains or shortness of breath. He states he is not very active due to being out of work for knee pain and has gained weight. He reports he is compliant with his medications. He is still interested in the CABG surgery. [facility] Medical History Chest pain On beta marley at home Pre-diabetes HTN (hypertension) CAD (coronary artery disease) Limb swelling Heart disease Dyspnea LOWELL on CPAP Surgical History History of right knee surgery (12/23/21) Hx of hemorrhoidectomy Hx of colonoscopy Family History Mother Arrhythmia HTN (hypertension) Father No problems noted. Social History Alcohol intake: never Patient Tobacco Use Status: Never used Tobacco Review of Systems Const Denies chills, Denies fatigue, Denies fever(s), Denies frequent falls, Denies weakness, Denies weight gain and Denies weight loss ENT Denies dizziness Card Denies chest pain, Denies chest pain with activity, Denies syncope, Denies rapid heart rate, Denies pedal edema, Denies irregular heart rhythm, Denies leg edema, Denies lightheadedness, Denies palpitations, Denies dyspnea, Denies dyspnea on exertion, Denies orthopnea and Denies other (LOC) Resp Denies cough, Denies dyspnea and Denies dyspnea on exertion GI Denies hematochezia and Denies change in bowel habits Musc Denies abnormal gait, Denies arthralgias, Denies muscle weakness, Denies numbness, Denies radiating pain into limb and Denies tingling Neuro Denies abnormal gait, Denies dizziness, Denies syncope, Denies frequent falls, Denies numbness, Denies tingling and Denies weakness Endo Denies fatigue and Denies palpitations Physical Exam Vital Signs: Last Vital Signs Pulse 82 06/16/23 13:04 BP 146/80 H 06/16/23 13:04 BMI result Body Mass Index 43.8 Const General: healthy appearing and no acute distress Orientation/consciousness: patient oriented x3 HEENT Head: Yes normal to inspection Eyes General: appearance normal, both eyes and all related structures Neck Neck: Yes normal visual inspection Chest Chest palpation & inspection: normal inspection of the chest Resp Effort & Inspection: normal respiratory effort Auscultation: clear to auscultation bilaterally Cardio Jugular venous distension: no JVD Palpation: normal PMI Rate: regular rate Rhythm: regular rhythm Heart sounds: S1 normal heart sound present, S2 normal heart sound present, no click, no gallops, no murmurs and no rubs GI Inspection: Yes normal to inspection Palpation (GI): Soft to palpation Skin General skin exam: no rashes or lesions noted Neuro General: patient oriented x3 Extrem General: Yes normal to inspection Psych Appearance: grossly normal Assessment & Plan Assessment & Plan (1) Hx of cardiac catheterization: Comment: 08/31/2019, proximal LAD 80% stenosis, mid LAD 100%, 1st diagonal 60%, 2nd diagonal 70%, left circumflex 95%, 2nd OM 80%, RCA mid 100% stenosis Code(s): Z98.890 - Other specified postprocedural states (2) Essential hypertension: Code(s): I10 - Essential (primary) hypertension (3) LOWELL on CPAP: Code(s): G47.33 - Obstructive sleep apnea (adult) (pediatric); Z99.89 - Dependence on other enabling machines and devices Plan Patient couldn't get an appointment with Dr. Miranda. Entered order for referral. He is still interested in being evaluated for CABG. Blood pressure today is elevated. States he is feeling very nervous and usually does when he comes in for an appointment. Blood pressure cuff RX given so he can monitor at home. Currently on lisinopril 40mg and metoprolol succinate 100mg. Instructed to bring log into next appointment. Last LDL 09/15/2022 was 50. Continue atorvastatin. Continue compliance with CPAP. Orders: Referrals Cardiac Surgery Referral Z98.890 - Other specified postprocedural states Medications: New blood pressure monitor (Blood Pressure Kit) As directed 1 ea 0RF hypertension I10 - Essential (primary) hypertension Coding Level of Care Code Est Pt Level 4 (54988) Diagnoses Hx of cardiac catheterization Z98.890 Essential hypertension I10 LOWELL on CPAP G47.33; Z99.89
== END 2023-06-16 13:39 | disposition home or self-care (01) ==
PROVIDERS: PCP Internal Medicine; Visit Provider Nurse Practitioner
DX: Z98.890 Other specified postprocedural states (principal); I10 Essential (primary) hypertension; G47.33 Obstructive sleep apnea (adult) (pediatric); Z99.89 Dependence on other enabling machines and devices
CPT/HCPCS: 99214

== ENCOUNTER → 2023-06-16 12:35 | Outpatient (BNVA) | payer MEDICARE, OTHER, SELFPAY | PROVIDERS: PCP Internal Medicine; Visit Provider Nurse Practitioner | DX: I10 Essential (primary) hypertension (principal); G47.33 Obstructive sleep apnea (adult) (pediatric); Z79.899 Other long term (current) drug therapy; Z99.89 Dependence on other enabling machines and devices; Z98.890 Other specified postprocedural states | CPT/HCPCS: 99212 ==

== ENCOUNTER 2023-07-25 14:05 | Outpatient (AMB) | payer MEDICARE, MEDICAID, SELFPAY ==
--- NOTE | 2023-07-25 14:16 | MHC.OFFVIS ---
Intake Visit Reasons: Lymphedema Clinic Intake Note: Patient states he is feeling well. States his right leg is worse than his left but they are both swollen. Allergies No Known Allergies Allergy (Verified 07/25/23 14:22) [facility] Lymphedema Clinic: Details: [age] Year old patient presents for evaluation of lymphedema. The patient complains of lymphedema located bilateral lower extremity. This has been present for approximately over a year. Symptoms that the patient has been experiencing include hyperkeratosis hyperpigmentation lymphedema papillomatosis pitting edema recurrent episodes of infection cellulitis pain and wounds. Patient has had a trial of conservative therapy inclusive compression garments of 20-30 mmHg starting on 08/10/2022. In addition the patient has tried exercise limb elevation and home manual lymph decongestive therapy for proximally 30 minutes a day. They have not experienced any significant relief from the swelling and discomfort. They now present for follow-up evaluation. [facility] Medical History Chest pain On beta marley at home Pre-diabetes HTN (hypertension) CAD (coronary artery disease) Limb swelling Heart disease Dyspnea LOWELL on CPAP Surgical History History of right knee surgery (12/23/21) Hx of hemorrhoidectomy Hx of colonoscopy Family History Mother Arrhythmia HTN (hypertension) Father No problems noted. Social History Alcohol intake: never Patient Tobacco Use Status: Never used Tobacco Review of Systems Const All systems reviewed & are unremarkable except as noted in HPI and below Reports no additional complaints ENT Reports Normal hearing present Card Denies chest pain, Denies chest pain at rest, Denies chest pain with activity and Denies pedal edema Resp Denies cough GI Denies abdominal pain Musc Denies abnormal gait, Denies muscle cramps and Denies radiating pain into limb Skin/Breast Denies skin ulcer and Denies wounds Neuro Reports Normal hearing present and Denies abnormal gait Psych Reports no additional complaints Physical Exam Const General: cooperative, healthy appearing and comfortable Orientation/consciousness: oriented to person, oriented to place and oriented to time HEENT Head: Yes normal to inspection Neck Neck: Yes normal visual inspection Carotids: no bruits Chest Chest palpation & inspection: normal inspection of the chest Resp Effort & Inspection: normal respiratory effort and able to speak in complete sentences Auscultation: clear to auscultation bilaterally, no crackles, no rales, no rhonchi and no wheezes Cardio Rate: regular rate Rhythm: regular rhythm Heart sounds: S1 normal heart sound present and S2 normal heart sound present Bruits: no carotid bruits Peripheral pulses: Peripheral pulses 2+ throughout GI Inspection: Yes normal to inspection Skin Wounds: no wounds Hair: normal Neuro General: oriented to person, oriented to place and oriented to time Cranial nerves: Yes CN's II-XII intact bilaterally and Yes Normal hearing present Cognition (Neuro): normal cognition Motor exam (neuro): 5/5 motor strength present throughout Extrem Other: venous exam: +2 edema Right in cm: Thigh 56.75 Knee 47.25 Calf 44 Ankle 28.5 Left in cm: Thigh 60.25 Knee 51 Calf 46.5 Ankle 29.25 Hip/waist 138.5 General: No clubbing, No cyanosis and Yes edema Psych Appearance: grossly normal Mental Status: mental status grossly normal Speech and movement: Normal speech and movement present Assessment & Plan Assessment & Plan (1) Lymphedema: Code(s): I89.0 - Lymphedema, not elsewhere classified Category: Medical Plan: In short the patient has late on sent lymphedema. The patient has been on conservative treatment for at least 3 months with minimal relief. Patient has tried 30 mm of mercury compression garments, elevation, exercise healthy diet and doing manual says self MLD to the best of their ability for over 4 weeks but with no significant relief. She has been compliant with the program but has provided minimal relief. In addition on physical we are noticing hyperpigmentation, lymphorrhea, and hyperplasia. It appears that she has stage 2 lymphedema. Patient has completed multiple forms of conservative therapy yet significant symptoms remain. Patient requires the use of a pneumatic compression device which we will assist in trying to have the patient obtain them. A pneumatic compression device will help reduce swelling and other lymphedema comorbidities. Thank you for allowing us to assist in this patient's care. Coding Level of Care Code Est Pt Level 4 (69880) Diagnoses Lymphedema I89.0
== END 2023-07-25 14:40 | disposition home or self-care (01) ==
LOC: HO.HVS 14:15
PROVIDERS: PCP Internal Medicine; Visit Provider Surgery Vascular Surgery
DX: I89.0 Lymphedema, not elsewhere classified (principal)
CPT/HCPCS: 99214

== ENCOUNTER → 2023-07-25 14:15 | Outpatient (BNVA) | payer MEDICARE, MEDICAID, SELFPAY | PROVIDERS: PCP Internal Medicine; Visit Provider Surgery Vascular Surgery | DX: I89.0 Lymphedema, not elsewhere classified (principal) | CPT/HCPCS: 99212 ==

== ENCOUNTER 2023-07-27 15:01 | Outpatient (AMB) | payer MEDICARE, MEDICAID, SELFPAY ==
--- NOTE | 2023-07-27 09:31 | MHC.OFFVIS ---
Intake Visit Reasons: f/u Allergies No Known Allergies Allergy (Verified 07/25/23 14:22) [facility] Medical History Chest pain On beta marley at home Pre-diabetes HTN (hypertension) CAD (coronary artery disease) Limb swelling Heart disease Dyspnea LOWELL on CPAP Surgical History History of right knee surgery (12/23/21) Hx of hemorrhoidectomy Hx of colonoscopy Family History Mother Arrhythmia HTN (hypertension) Father No problems noted. Social History Alcohol intake: never Patient Tobacco Use Status: Never used Tobacco Coding
--- NOTE | 2023-07-27 15:33 | MHC.OFFVIS ---
Vital Signs 07/27/23 15:34 07/27/23 15:43 Height 5 ft 8 in Weight 293 lb 3.437 oz BMI 44.6 BP 140/72 H 130/72 Blood Pressure Location Lt brachial Lt brachial Position Sitting Sitting Pulse 87 Pulse Source Pulse Oximeter Pulse Oximetry (%) 96 Oxygen Delivery Method Room Air Intake Visit Reasons: f/u Intake Note: follow up pt feels good Integration Software Developer Required: Yes Integration Software Developer Name: [email or web address] [id number] Allergies No Known Allergies Allergy (Verified 07/25/23 14:22) HPI Comments Details: 67-year-old male presents today for a follow-up. He has a medical history of HTN,. hyperlipidemia, pre-diabetes, LOWELL, and CAD. In a past cardiac catheterization he had multi-vessel disease and was referred for a CABG He states he is not very active due to being out of work for knee pain and has gained weight. He reports he is compliant with his medications. He is still interested in the CABG surgery. Needs repeat cardiac catherization for evaluation for CABG. He reports he gets some chest discomfort with ambulation. [facility] Medical History Chest pain On beta marley at home Pre-diabetes HTN (hypertension) CAD (coronary artery disease) Limb swelling Heart disease Dyspnea LOWELL on CPAP Surgical History History of right knee surgery (12/23/21) Hx of hemorrhoidectomy Hx of colonoscopy Family History Mother Arrhythmia HTN (hypertension) Father No problems noted. Social History Alcohol intake: never Patient Tobacco Use Status: Never used Tobacco Review of Systems Const Denies weakness ENT Denies dizziness Card Denies chest pain, Denies chest pain with activity, Denies syncope, Denies rapid heart rate, Denies pedal edema, Denies edema, Denies leg edema, Denies lightheadedness, Denies palpitations, Denies dyspnea, Denies dyspnea on exertion and Denies orthopnea Resp Denies cough, Denies dyspnea and Denies dyspnea on exertion GI Denies hematochezia and Denies change in stool character Musc Denies abnormal gait, Denies muscle cramps, Denies muscle weakness, Denies numbness, Denies radiating pain into limb and Denies tingling Neuro Denies abnormal gait, Denies dizziness, Denies syncope, Denies numbness, Denies tingling and Denies weakness Endo Denies palpitations Physical Exam Vital Signs: Last Vital Signs Pulse 87 07/27/23 15:34 BP 130/72 07/27/23 15:43 Pulse Ox 96 07/27/23 15:34 Oxygen Delivery Method Room Air 07/27/23 15:34 BMI result Body Mass Index 44.6 Assessment & Plan Assessment & Plan (1) Stable angina: Comment: He has complex multivessel disease. He was seen by CT surgery for bypass but he has been reluctant to undergo surgery at this point. No good percutaneous options with 2 MILITARY SOURCE OPERATIONS OFFICER's involving LAD and RCA. Code(s): I20.8 - Other forms of angina pectoris Category: Medical (2) Hx of cardiac catheterization: Comment: 08/31/2019, proximal LAD 80% stenosis, mid LAD 100%, 1st diagonal 60%, 2nd diagonal 70%, left circumflex 95%, 2nd OM 80%, RCA mid 100% stenosis Code(s): Z98.890 - Other specified postprocedural states Category: Surgical Plan Patient agrees to Cardiac Catherization to reasses coronary anatomy then if needed plant to send for CABG evaluation. He reports understanding and has no questions at this time. Patient agreeable to plan of care. Orders: Orders Complete Blood Count Auto Diff 07/27/23 R07.9 - Chest pain, unspecified, Z98.890 - Other specified postprocedural states Cardiac Cath LT w PCI 07/27/23 R07.9 - Chest pain, unspecified, Z98.890 - Other specified postprocedural states Basic Metabolic Panel 07/27/23 R07.9 - Chest pain, unspecified, Z98.890 - Other specified postprocedural states Prothrombin Time INR 07/27/23 R07.9 - Chest pain, unspecified, Z98.890 - Other specified postprocedural states Coding Level of Care Code Est Pt Level 3 (04930) Diagnoses Stable angina I20.8 Hx of cardiac catheterization Z98.890
[2023-07-27 15:34] VITALS: BP 140/72; PULSE 87; O2SAT 96; BMI 44.6
[2023-07-27 15:43] VITALS: BP 130/72
== END 2023-07-27 16:08 | disposition home or self-care (01) ==
PROVIDERS: PCP Internal Medicine; Visit Provider Nurse Practitioner
DX: I20.89 Other forms of angina pectoris (principal); Z98.890 Other specified postprocedural states
CPT/HCPCS: 99213

== ENCOUNTER → 2023-07-27 15:01 | Outpatient (BNVA) | payer MEDICARE, MEDICAID, SELFPAY | PROVIDERS: PCP Internal Medicine; Visit Provider Nurse Practitioner | DX: I20.89 Other forms of angina pectoris (principal); Z98.890 Other specified postprocedural states | CPT/HCPCS: 99212 ==

== ENCOUNTER 2023-08-03 07:47 | Outpatient (REF) | payer MEDICARE, MEDICAID, SELFPAY ==
[2023-08-03 07:58] LABS: MANUAL DIFF FLAG NO
[2023-08-03 08:11] LABS: Basophils Absolute Auto 0.1 X10*3/uL (0.0-0.2); Basophils Percent Auto 0.7 % (0-2); Eosinophils Absolute Auto 0.4 X10*3/uL (0.0-0.4); Eosinophils Percent Auto 5.2 % (0-4); Hematocrit 41.5 % (42.0-52.0); Hemoglobin 15.5 g/dl (14.0-18.0); Imm Gran Abs Auto 0.02 X10*3/uL (0.00-0.03); Imm Gran Pct Auto 0.3 % (0.0-0.4); Lymphocytes Absolute Auto 2.3 X10*3/uL (1.2-4.9); Lymphocytes Percent Auto 33.1 % (20-40); Mean Corpuscular HGB Conc 37.3 g/dl (31.0-36.0); Mean Corpuscular Volume 88.5 fL (80.0-98.0); Mean Platelet Volume 10.4 fL (9.4-12.4); Monocytes Absolute Auto 0.7 X10*3/uL (0.1-1.2); Monocytes Percent Auto 9.7 % (2-11); Neutrophils Absolute Auto 3.5 x10*3/uL (2.0-8.3); Platelet Count 216 X10*3/uL (160-400); Red Blood Count 4.69 X10*6/uL (4.60-5.80); Red Cell Distribution Width 13.1 % (11.0-16.0); White Blood Count 6.9 X10*3/uL (4.8-10.8)
[2023-08-03 08:16] LABS: INTERNATIONAL NORM RATIO 0.9 (0.9-1.1); Prothrombin Time 11.5 SEC (11.1-13.3)
[2023-08-03 08:30] LABS: Anion Gap 12 (12-20); Blood Urea Nitrogen 9 mg/dL (9-16); Calcium 9.5 mg/dL (8.4-10.2); Carbon Dioxide 28 mmol/L (22-29); Chloride 104 mmol/L (96-108); Estimated Glomerular Filt Rate > 60; Glucose Random 128 mg/dL (60-115); Potassium 4.5 mmol/L (3.3-5.1); Sodium 139 mmol/L (135-145)
== END 2023-08-03 07:48 | disposition home or self-care (01) ==
LOC: HO.LAB 07:47
PROVIDERS: PCP Internal Medicine; Visit Provider Nurse Practitioner
DX: R07.9 Chest pain, unspecified (principal); Z98.890 Other specified postprocedural states
CPT/HCPCS: 36415; 80048; 85025; 85610

== ENCOUNTER 2023-08-22 12:25 | Outpatient (AMB) | payer MEDICARE, MEDICAID, SELFPAY ==
[2023-08-22 12:31] VITALS: BMI 44.5
--- NOTE | 2023-08-22 12:31 | A.OFFVIS_ITS ---
Vital Signs 08/22/23 12:31 Height 5 ft 8 in Weight 293 lb BMI 44.5 Intake Visit Reasons: Lymphedema 2nd visit Intake Note: Pt states he has bilateral LE pain, Right LE worse than Left LE. Pt states that he has bilateral LE swelling all the time Entry Level Programmer Required: Yes Entry Level Programmer Language: Manager Reliability Name: Ronny [id number] Information Interpreted: clinical only Accompanied by: Self / Same As Patient Allergies No Known Allergies Allergy (Verified 08/22/23 12:34) [facility] HPI Lymphedema 2nd visit: Details: Very pleasant 67-year-old gentleman presents for evaluation of lymphedema. The patient complains of lymphedema located bilateral lower extremity. This has been present for approximately over a year. Symptoms that the patient has been experiencing include hyperkeratosis hyperpigmentation lymphedema papillomatosis pitting edema recurrent episodes of infection cellulitis pain and wounds. Patient has had a trial of conservative therapy inclusive compression garments of 20-30 mmHg starting on 08/10/2022. In addition the patient has tried exercise limb elevation and home manual lymph decongestive therapy for proximally 30 minutes a day. They have not experienced any significant relief from the swelling and discomfort. They now present for 2nd follow-up visit [facility] Medical History Chest pain On beta marley at home Pre-diabetes HTN (hypertension) CAD (coronary artery disease) Limb swelling Heart disease Dyspnea LOWELL on CPAP Surgical History History of right knee surgery (12/23/21) Hx of hemorrhoidectomy Hx of colonoscopy Family History Mother Arrhythmia HTN (hypertension) Father No problems noted. Social History Alcohol intake: never Patient Tobacco Use Status: Never used Tobacco Review of Systems Const Reports as per HPI ENT Reports no additional complaints Card Denies chest pain, Denies chest pain at rest and Denies chest pain with activity Resp Denies chest congestion and Denies cough GI Reports no additional complaints Musc Details: pain over varicosities, aching of lower extremities, swelling, cramping, heaviness and tiredness, itching Denies abnormal gait Skin/Breast Reports pruritus and Denies wounds Neuro Reports no additional complaints and Denies abnormal gait Psych Denies no additional complaints Physical Exam Vital Signs: BMI result Body Mass Index 44.5 Const General: cooperative, healthy appearing and comfortable Orientation/consciousness: oriented to person, oriented to place and oriented to time Neck Carotids: no bruits Chest Chest palpation & inspection: normal inspection of the chest and normal palpation of entire chest wall Resp Effort & Inspection: normal respiratory effort and able to speak in complete sentences Cardio Rate: regular rate Heart sounds: S1 normal heart sound present and S2 normal heart sound present Peripheral pulses: Peripheral pulses 2+ throughout GI Inspection: Yes normal to inspection Skin Other: +2 edema, General skin exam: dry skin Neuro General: oriented to person, oriented to place and oriented to time Extrem Other: Right in cm: Thigh 61.25 Knee 49 Calf 45.5 Ankle 28.25 Left in cm: Thigh 61.0 Knee 53.25 Calf 47 Ankle 29 Hip/waist 141 Right lower extremity: full ROM, normal capillary refill and edema Left lower extremity: full ROM, normal capillary refill and edema Psych Mental Status: mental status grossly normal Assessment & Plan Assessment & Plan (1) Lymphedema: Code(s): I89.0 - Lymphedema, not elsewhere classified Category: Medical Plan: In short the patient has late on sent lymphedema. The patient has been on conservative treatment for at least 3 months with minimal relief. Patient has tried 30 mm of mercury compression garments, elevation, exercise healthy diet and doing manual says self MLD to the best of their ability for over 4 weeks but with no significant relief. She has been compliant with the program but has provided minimal relief. In addition on physical we are noticing hyperpigmentation, lymphorrhea, and hyperplasia. It appears that she has stage 2 lymphedema. Patient has completed multiple forms of conservative therapy yet significant symptoms remain. Patient requires the use of a pneumatic compression device which we will assist in trying to have the patient obtain them. A pneumatic compression device will help reduce swelling and other lymphedema comorbidities. Thank you for allowing us to assist in this patient's care. Coding Level of Care Code Est Pt Level 4 (70137) Diagnoses Lymphedema I89.0
== END 2023-08-22 13:12 | disposition home or self-care (01) ==
PROVIDERS: PCP Internal Medicine; Visit Provider Surgery Vascular Surgery
DX: I89.0 Lymphedema, not elsewhere classified (principal)
CPT/HCPCS: 99214

== ENCOUNTER → 2023-08-22 12:25 | Outpatient (BNVA) | payer MEDICARE, MEDICAID, SELFPAY | PROVIDERS: PCP Internal Medicine; Visit Provider Surgery Vascular Surgery | DX: I89.0 Lymphedema, not elsewhere classified (principal) | CPT/HCPCS: 99212 ==

== ENCOUNTER → 2023-08-30 23:59 | Outpatient (BNV) | payer MEDICARE, MEDICAID, SELFPAY | PROVIDERS: PCP Internal Medicine; Visit Provider Internal Medicine Cardiovascular Disease | DX: I20.89 Other forms of angina pectoris (principal) | CPT/HCPCS: 93458; 99152 ==

== ENCOUNTER 2023-09-13 12:28 | Outpatient (AMB) | payer MEDICARE, MEDICAID, SELFPAY ==
--- NOTE | 2023-09-13 12:43 | MHC.OFFVIS ---
Vital Signs 09/13/23 12:48 09/13/23 13:06 Height 5 ft 8 in Weight 291 lb 0.163 oz BMI 44.2 BP 140/70 H 130/70 Blood Pressure Location Lt brachial Lt brachial Position Sitting Sitting Pulse 86 Pulse Source Monitor Intake Visit Reasons: 2 wk s/p cath Small Engine Specialist Required: Yes Small Engine Specialist Name: GEOVANNY [id number] Allergies No Known Allergies Allergy (Verified 08/22/23 12:34) HPI Comments Details: 67-year-old male presents today for a follow-up after cardiac catheterization He has a medical history of HTN,. hyperlipidemia, pre-diabetes, LOWELL, and CAD. Cardiac catheterization he had multi-vessel disease and was recommended for a CABG He states he is not very active due to being out of work for knee pain and has gained weight. He reports he is compliant with his medications. He is interested in the CABG surgery. He reports he gets some chest discomfort with ambulation. Right radial site is healing well. Denies fever, chills. odor, drainage, or erythema. Blood pressure today on initial exam was elevated. Rechecked by me and improved. COUNT INCLUDES THE [facility] Medical History Chest pain On beta marley at home Pre-diabetes HTN (hypertension) CAD (coronary artery disease) Limb swelling Heart disease Dyspnea LOWELL on CPAP Surgical History S/P cardiac catheterization History of right knee surgery (12/23/21) Hx of hemorrhoidectomy Hx of colonoscopy Family History Mother Arrhythmia HTN (hypertension) Father No problems noted. Social History Alcohol intake: never Patient Tobacco Use Status: Never used Tobacco Review of Systems Const Denies weakness ENT Denies dizziness Card Denies chest pain, Denies chest pain with activity, Denies syncope, Denies rapid heart rate, Denies pedal edema, Denies edema, Denies leg edema, Denies lightheadedness, Denies palpitations, Denies dyspnea, Denies dyspnea on exertion and Denies orthopnea Resp Denies cough, Denies dyspnea and Denies dyspnea on exertion GI Denies hematochezia and Denies change in stool character Musc Denies abnormal gait, Denies muscle cramps, Denies muscle weakness, Denies numbness, Denies radiating pain into limb and Denies tingling Neuro Denies abnormal gait, Denies dizziness, Denies syncope, Denies numbness, Denies tingling and Denies weakness Endo Denies palpitations Physical Exam Vital Signs: Last Vital Signs Pulse 86 09/13/23 12:48 BP 130/70 09/13/23 13:06 BMI result Body Mass Index 44.2 Const General: healthy appearing and no acute distress Orientation/consciousness: patient oriented x3 HEENT Head: Yes normal to inspection Eyes General: appearance normal, both eyes and all related structures Neck Neck: Yes normal visual inspection Chest Chest palpation & inspection: normal inspection of the chest Resp Effort & Inspection: normal respiratory effort Auscultation: clear to auscultation bilaterally Cardio Jugular venous distension: no JVD Palpation: normal PMI Rate: regular rate Rhythm: regular rhythm Heart sounds: S1 normal heart sound present, S2 normal heart sound present, no click, no gallops, no murmurs and no rubs GI Inspection: Yes normal to inspection Palpation (GI): Soft to palpation Skin General skin exam: no rashes or lesions noted Neuro General: patient oriented x3 Extrem Other: Right radial site healing appropriately. No erhythma. swelling, or tenderness. General: Yes normal to inspection Psych Appearance: grossly normal Office Procedures EKG Details: EKG today. Normal Sinus Rhythm. Nonspecifit T wave abnormality. Rate 86 bpm. W[place] 132 ms. QRS 92 ms. QTc 437 ms. [id number], Complete Assessment & Plan Assessment & Plan (1) S/P cardiac catheterization: Comment: 08/30/[address] Carrera Cardiac Arteries and Lesion Findings LAD: Lesion in Dist LAD: Proximal subsection.100% stenosis .Chronic total occlusion. Lesion in 1st Diag: Ostial.75% stenosis . Lesion in Mid LAD: 80% stenosis . LCx: Lesion in Prox CX: Ostial.75% stenosis . RCA: Lesion in Prox RCA: Proximal subsection.100% stenosis .Chronic total occlusion. ACC Diagnostic Recommendations: CABG. Code(s): Z98.890 - Other specified postprocedural states Category: Medical Plan: Patient is scheduled for CABG evaluation on 09/26/[address] Miranda. He is agreeable to CABG. Patient lasy lipid panel was one year ago - will repeat. Right radial site healing appropriately. ASA 81mg indefinitely. Will follow-up in 3 months or sooner if needed (2) Essential hypertension: Code(s): I10 - Essential (primary) hypertension Category: Medical Plan: Blood pressure today on initial exam was elevated. Rechecked by me and improved. Reports he is compliant with his medications. Orders: Orders Lipid Panel 09/13/23 I25.10 - Atherosclerotic heart disease of enterprise coronary artery without angina pectoris Basic Metabolic Panel 09/13/23 I25.10 - Atherosclerotic heart disease of enterprise coronary artery without angina pectoris Medications: New nitroglycerin do not exceed 3 doses per episode 0.4 mg sublingual Q5M PRN 100 tabs 0RF Chest Pain Coding Level of Care Code Est Pt Level 3 (85384) Diagnoses S/P cardiac catheterization Z98.890 Essential hypertension I10 CPT Codes EKG - CPT: 35730-[id number], Complete ([id number])
[2023-09-13 12:48] VITALS: BP 140/70; PULSE 86; BMI 44.2
[2023-09-13 13:06] VITALS: BP 130/70
== END 2023-09-13 13:16 | disposition home or self-care (01) ==
PROVIDERS: PCP Internal Medicine; Visit Provider Nurse Practitioner
DX: Z98.890 Other specified postprocedural states (principal); I10 Essential (primary) hypertension
CPT/HCPCS: 93010; 99213

== ENCOUNTER → 2023-09-13 12:28 | Outpatient (BNVA) | payer MEDICARE, MEDICAID, SELFPAY | PROVIDERS: PCP Internal Medicine; Visit Provider Nurse Practitioner | DX: I10 Essential (primary) hypertension (principal); Z98.890 Other specified postprocedural states | CPT/HCPCS: 93005; 99212 ==

== ENCOUNTER 2023-09-19 11:09 | Emergency (ER) | payer MEDICARE, OTHER, SELFPAY ==
[2023-09-19 11:42] VITALS: BP 141/97; PULSE 70; RESP 16; TEMP 37.1; O2SAT 96; BMI 43.2
--- NOTE | 2023-09-19 11:42 | ED_ITS ---
HPI - Abdominal Pain General Chief Complaint: Abdominal Pain Stated Complaint: r sided abd pain Related Data Home Medications ?Medication ?Instructions ?Recorded ?Confirmed CPAP (CPAP Machine/Device) 01/25/22 09/09/22 Previous Rx's ?Medication ?Instructions ?Recorded compr.stocking,knee,long,large #1 ea 07/14/21 ibuprofen 400 mg tablet 400 mg PO Q6H PRN pain #30 tabs 08/03/21 atorvastatin 80 mg tablet 80 mg PO DAILY #90 tabs 09/15/21 metoprolol succinate 100 mg 100 mg PO DAILY #90 tabs 09/15/21 tablet,extended release 24 hr azelastine 137 mcg (0.1 %) nasal 2 spray intranasal BID #30 mL 09/13/22 spray aerosol aspirin 81 mg tablet,delayed 81 mg PO DAILY #90 tabs 12/08/22 release isosorbide mononitrate 30 mg 30 mg PO DAILY 90 days #90 tabs 01/12/23 tablet,extended release 24 hr fluticasone propionate 50 2 spray intranasal DAILY #16 grams 01/31/23 mcg/actuation nasal spray,suspension morphine 15 mg immediate release 15 mg PO TID PRN pain #10 tabs 02/12/23 tablet lisinopril 40 mg tablet 40 mg PO DAILY #90 tabs 03/09/23 blood pressure monitor (Blood #1 ea 06/16/23 Pressure Kit) nitroglycerin 0.4 mg sublingual 0.4 mg sublingual Q5M PRN Chest 09/13/23 tablet Pain #100 tabs Allergies Allergy/AdvReac Type Severity Reaction Status Date / Time No Known Allergies Allergy Verified 09/19/23 11:44 [facility] Past Medical History Medical History Chest pain On beta marley at home Pre-diabetes HTN (hypertension) CAD (coronary artery disease) Limb swelling Heart disease Dyspnea LOWELL on CPAP Surgical History S/P cardiac catheterization History of right knee surgery (12/23/21) Hx of hemorrhoidectomy Hx of colonoscopy Family History Family History Mother Arrhythmia HTN (hypertension) Father No problems noted. Social History Social History Alcohol intake: never Patient Tobacco Use Status: Never used Tobacco Advance Directives: No Advance Directives Information Provided: No Physical Exam ED Vital Signs: BMI result Body Mass Index 43.2 Course Course Course Narrative: This is a rapid medical exam completed by Nohemy ELIZALDEN: Additional HPI, ROS, PE not included below will be deferred to primary provider. Right sided abdominal pain since 7:30 am with associated nausea. Has the desire to urinate and 'nothing comes out'. BM this morning with some recent constipation. Plan: labs, ua Medical Decision Making Lab Data 09/19/23 12:36 09/19/23 12:36 Labs: Lab Results 09/19/23 Range/Units 12:36 WBC 9.1 (4.8-10.8) X10*3/uL RBC 4.69 (4.60-5.80) X10*6/uL Hgb 15.5 (14.0-18.0) g/dl Hct 41.3 L (42.0-52.0) % MCV 88.1 (80.0-98.0) fL MCH 33.0 (27.0-33.0) pg MCHC 37.5 H (31.0-36.0) g/dl RDW 13.2 (11.0-16.0) % Plt Count 191 (160-400) X10*3/uL MPV 11.0 (9.4-12.4) fL Immature Gran % (Auto) 0.2 (0.0-0.4) % Neut % (Auto) 76.5 H (45-73) % Lymph % (Auto) 13.6 L (20-40) % [place] % (Auto) 8.2 (2-11) % Eos % (Auto) 1.1 (0-4) % Baso % (Auto) 0.4 (0-2) % Lymph # (Auto) 1.2 (1.2-4.9) X10*3/uL [place] # (Auto) 0.7 (0.1-1.2) X10*3/uL Eos # (Auto) 0.1 (0.0-0.4) X10*3/uL Baso # (Auto) 0.0 (0.0-0.2) X10*3/uL Abs Immat Gran (auto) 0.02 (0.00-0.03) X10*3/uL Absolute Neuts (auto) 6.9 (2.0-8.3) x10*3/uL Absolute Nucleated RBC 0.000 (0.0-0.012) X10*3/uL Nucleated RBC % (auto) 0.0 (0.0-0.2) /100WBC Sodium 141 (135-145) mmol/L Potassium 5.0 (3.3-5.1) mmol/L Chloride 106 (96-108) mmol/L Carbon Dioxide 30 H (22-29) mmol/L Anion Gap 10 L (12-20) BUN 9 (9-16) mg/dL Creatinine 1.06 (0.5-1.4) mg/dL Estim Creat Clear Calc 90.9 Estimated GFR > 60 Random Glucose 132 H (60-115) mg/dL Calcium 9.6 (8.4-10.2) mg/dL Total Bilirubin 0.6 (0.0-1.0) mg/dL AST 15 (5-37) U/L ALT 23 (0-40) U/L Alkaline Phosphatase 84 (39-117) U/L Total Protein 7.1 (6.5-8.0) g/dL Albumin 4.2 (3.5-5.0) g/dL Discharge Plan Discharge Clinical Impression: Left before treatment completed Patient Disposition: Left W/O Completing Treatment Prescriptions: No Action atorvastatin 80 mg tablet 80 mg PO DAILY Qty: 90 1RF metoprolol succinate 100 mg tablet extended release 24 hr 100 mg PO DAILY Qty: 90 1RF azelastine 137 mcg (0.1 %) aerosol,spray 2 spray intranasal BID Qty: 30 6RF aspirin 81 mg tablet,delayed release (DR/EC) 81 mg PO DAILY Qty: 90 3RF isosorbide mononitrate 30 mg tablet extended release 24 hr 30 mg PO DAILY 90 Days Qty: 90 3RF fluticasone propionate 50 mcg/actuation spray,suspension 2 spray intranasal DAILY Qty: 16 11RF lisinopril 40 mg tablet 40 mg PO DAILY Qty: 90 3RF ibuprofen 400 mg tablet 400 mg PO Q6H PRN (Reason: pain) Qty: 30 0RF morphine 15 mg tablet 15 mg PO TID PRN (Reason: pain) Qty: 10 0RF Rx Instructions: partial fill okay; Partial Fill upon patient request. (DME) compr.stocking,knee,long,large Misc See Rx Instructions .ROUTE .MEDSUPPLY Qty: 1 0RF Rx Instructions: [id number] (DME) CPAP Machine/Device Device See Rx Instructions .Route Rx Instructions: As directed (DME) blood pressure monitor [Blood Pressure Kit] Kit See Rx Instructions .ROUTE .MEDSUPPLY Qty: 1 0RF Rx Instructions: As directed nitroglycerin 0.4 mg tablet, sublingual 0.4 mg sublingual Q5M PRN (Reason: Chest Pain) Qty: 100 0RF Rx Instructions: do not exceed 3 doses per episode Interventions: LWBS Worksheet Last Done: 09/19/23 21:41 Discharge Date/Time: 09/19/23 21:14
[2023-09-19 12:47] LABS: MANUAL DIFF FLAG NO
[2023-09-19 13:03] LABS: Alanine Aminotransferase 23 U/L (0-40); Albumin Level 4.2 g/dL (3.5-5.0); Alkaline Phosphatase 84 U/L (39-117); Anion Gap 10 (12-20); Aspartate Amino Transferase 15 U/L (5-37); Bilirubin Total 0.6 mg/dL (0.0-1.0); Blood Urea Nitrogen 9 mg/dL (9-16); Calcium 9.6 mg/dL (8.4-10.2); Carbon Dioxide 30 mmol/L (22-29); Chloride 106 mmol/L (96-108); Creatinine Clr Calc Pharmacy 90.9; Estimated Glomerular Filt Rate > 60; Glucose Random 132 mg/dL (60-115); Sodium 141 mmol/L (135-145); Total Protein 7.1 g/dL (6.5-8.0)
[2023-09-19 13:09] LABS: Basophils Percent Auto 0.4 % (0-2); Eosinophils Absolute Auto 0.1 X10*3/uL (0.0-0.4); Eosinophils Percent Auto 1.1 % (0-4); Hematocrit 41.3 % (42.0-52.0); Hemoglobin 15.5 g/dl (14.0-18.0); Imm Gran Abs Auto 0.02 X10*3/uL (0.00-0.03); Imm Gran Pct Auto 0.2 % (0.0-0.4); Lymphocytes Absolute Auto 1.2 X10*3/uL (1.2-4.9); Lymphocytes Percent Auto 13.6 % (20-40); Mean Corpuscular HGB Conc 37.5 g/dl (31.0-36.0); Mean Corpuscular Volume 88.1 fL (80.0-98.0); Monocytes Absolute Auto 0.7 X10*3/uL (0.1-1.2); Monocytes Percent Auto 8.2 % (2-11); Neutrophils Absolute Auto 6.9 x10*3/uL (2.0-8.3); Neutrophils Percent Auto 76.5 % (45-73); Platelet Count 191 X10*3/uL (160-400); Red Blood Count 4.69 X10*6/uL (4.60-5.80); Red Cell Distribution Width 13.2 % (11.0-16.0); White Blood Count 9.1 X10*3/uL (4.8-10.8)
== END 2023-09-19 21:14 | disposition left against medical advice (07) ==
LOC: HO.ED 21:09
PROVIDERS: Nurse Practitioner Family; Emergency Provider Emergency Medicine; PCP Internal Medicine
DX: R10.31 Right lower quadrant pain (principal); Z79.899 Other long term (current) drug therapy
CPT/HCPCS: 36415; 80053; 85025; 99281; 99283

== ENCOUNTER 2023-11-01 13:51 | Outpatient (AMB) | payer MEDICARE, MEDICAID, SELFPAY ==
[2023-11-01 14:28] VITALS: PULSE 71; O2SAT 95; BMI 43.3
--- NOTE | 2023-11-01 14:28 | A.OFFVIS_ITS ---
Vital Signs 11/01/23 14:28 Height 5 ft 8 in Weight 285 lb BMI 43.3 Pulse 71 Pulse Source Pulse Oximeter Pulse Oximetry (%) 95 Oxygen Delivery Method Room Air Intake Visit Reasons: Obstructive sleep apnea Package Reinspector Required: No Allergies No Known Allergies Allergy (Verified 11/01/23 14:29) HPI Comments Details: The patient is a 67-year-old gentleman with a known history of obesity and obstructive sleep apnea. He states that many years ago he had a sleep study at [facility] and was placed on CPAP. At that time he was eating late and also drinking alcohol. He subsequently stop that. His machine is very old and he has not been getting any supplies. Therefore he has not been using it. He does sleep and wakes up short of breath at times. He also has significant snoring based on his says history. Also he does wake up tired with an Madelia score elevated 10/24. The patient also has been complaining of dyspnea on exertion. 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 After 3-4 minutes walking he has been demonstrating some worsening shortness of breath moderate severity along with chest pressure. Substernal. Nonradiating. Usually the symptoms of side after minute and then he goes back to walking to his job. This is very concerning. The patient does take aspirin and does have nitroglycerin. He has not had a sleep study. He has other cardiovascular risk. In the office we did taken for 6 minutes walk test the patient did have to stop after 4 minutes because the chest pressure. He did not desaturate. Had an x-ray demonstrating atelectasis at the bases likely from hypo expansion of the lungs due to his abdominal pressures and body habitus. He did undergo sleep study demonstrating mild sleep apnea. He did also have episodes of desaturation down to the high 70s and heart rate elevations up to the 100. In view of his underlying cardiac disease even though he has mild disease this needs to be treated. Therefore I will send a CPAP prescription to a local [email or web address] company for him to be set up. Today the patient is here for pulmonary follow-up visit. Overall he is doing well. He is tolerating CPAP therapy. The therapy has been affecting beneficial. He does use it for more than 4 hours a night. He did follow-up with cardiology in he does have coronary artery disease. At this point has stable angina. He is responding well to the cardioprotective medications. He still has some chest discomfort at times if he walks for long duration. He still having issues with his job where the parking as far away and is hard for him to walk distance without getting chest discomfort. Therefore is not on reasonable for him to continue finding a close parking until he builds up the stamina to be able to walk further. 04/10/2020 the patient is here for pulmonary follow-up visit. Overall the patient has been doing very well. He has been trying to get used to the CPAP therapy. The CPAP therapy continues to be affecting beneficial. Sometimes he struggles to use it more than 4 hours a night. He feels like is making his breathing worse and he has to take off his machine. I did download the machine in appears to require a median pressure of 13.5 cm and a maximum pressure of 16 cm. Right now that is the maximum pressure machine.His AHI is below 5. The patient appears to have a difficult time tolerating the higher pressures specially when he goes above 14 cm. Therefore I adjusted his machine APAP 8-14. If the patient still has difficulties tolerating the pressures and or these pressures not enough then we can consider BiPAP therapy in order to effective treat him with higher pressure settings. He continues to have shortness of breath continues to have underlying heart disease. He has underlying stable angina. 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 He still getting shortness of breath chest discomfort when walking some distances. We did provide him with a letter for him to be able to park closer to his job in order to avoid symptoms such as stated above. I did provide him with the placard papers that he can bring to his [employer] truck driver and see if the symptom that they can do for him for his cardiac issues. 10/16/2020 the patient is here for a pulmonary follow-up visit. The patient overall has been stable on the current therapy. He has been using his CPAP with good response. He has good adherence to the therapy. The therapy has been affecting beneficial. He does use it more than 4 hours a night. He is tolerating the higher pressures. he has been demonstrating worsening lower extremity edema. The patient needs to use his compression stockings. Provided with a prescription in order for him to get them of the [employer]. He continues to take his cardioprotective medications. It appears that his CAD he is extensive and not amendable percutaneous coronary intervention. Therefore he will likely need cardiac bypass surgery. 07/14/2021 the patient is here for a pulmonary follow-up visit. Overall the patient has been doing good. He has gotten really used to his CPAP. He does use it every night. The therapy has been affecting beneficial. His mask fitting is good. we were able to download his machine. Appears that his AHI slightly elevated at 5.6. His average pressure tends to be closer to 14 cm. Therefore, will go ahead and adjust his machine to 10-18 cm with a ramp of 8 cm. As far as the breathing appears to be stable. He is not using any inhalers. He does have lower extremity edema. He did have compression stockings but they broke. He continues to have a cough which is usually worse at nighttime. Moderate severity. Likely postnasal drip or upper airway cough syndrome. 01/25/2022 the patient is here for pulmonary follow-up visit. Overall the patient has been doing well with CPAP. He continues to tolerate the CPAP every night. He does use it for more than 4 hours a night. The therapy has been affecting beneficial. He is tolerating the higher pressures. He does complaint of significant nasal congestion and cough. This is an ongoing issue. He has tried fluticasone nasal spray addition to some allergy medicines. However, no significant relief. We did talk about the Neti rinse that he can perform before the CPAP. I did provide him with a bottle and showed him a video to given instructions on how to use it. He understands that he needs to use the same distilled water that he uses for his machine. In the meantime he continue the fluticasone nasal spray more regularly and also add Astelin nasal spray to see if he gets additional relief. If he continues having symptoms then potential laboratory testing may be warranted for allergy testing. Patient also is recovering from arthroscopy of his knee. Tolerated the surgery well with anesthesia. He did not undergo any cardiac interventions. He is still on cardioprotective medications and doing clinically well. 11/01/2023 the patient is here for pulmonary follow-up visit. Overall the patient has been doing well from a respiratory status. He is using the CPAP every night. The CPAP therapy has been affecting beneficial. Does use it more than 4 hours a night. We did download her machine. He is machine now for about 5 months this is new 1 and his compliance 100%. His AHI is down to 3.3 and he is happy with pressures at this time so will continue with the APAP 10-18. The patient also complains of nasal congestion. Specially when he uses the CPAP. He has responded well to the Astelin to the fluticasone nasal spray. Will go ahead and send those to the pharmacy at this time. The patient is also recommended to rinse his nose prior to putting on the CPAP to minimize sinus congestion and obstruction. From a cardiac standpoint the patient does have aortic stenosis that believe. He is being evaluated from Cardiology standpoint he may need to have a aortic valve replacement. He is also being evaluated for other cardiovascular and peripheral vascular disease. [facility] Medical History Chest pain On beta marley at home Pre-diabetes HTN (hypertension) CAD (coronary artery disease) Limb swelling Heart disease Dyspnea LOWELL on CPAP Surgical History S/P cardiac catheterization History of right knee surgery (12/23/21) Hx of hemorrhoidectomy Hx of colonoscopy Family History Mother Arrhythmia HTN (hypertension) Father No problems noted. Social History Alcohol intake: never Patient Tobacco Use Status: Never used Tobacco Review of Systems Const Denies weakness ENT Denies dizziness, Reports nasal congestion, Reports nasal discharge and Reports post nasal drip Card Denies chest pain, Denies chest pain with activity, Reports leg edema, Denies lightheadedness, Denies palpitations, Denies dyspnea and Denies dyspnea on exertion Resp Denies cough, Denies dyspnea and Denies dyspnea on exertion GI Denies hematochezia and Denies change in stool character Musc Denies abnormal gait, Denies muscle weakness, Denies numbness, Denies radiating pain into limb and Denies tingling Neuro Denies abnormal gait, Denies dizziness, Denies numbness, Denies tingling and Denies weakness Endo Denies palpitations Physical Exam Vital Signs: Last Vital Signs Pulse 71 11/01/23 14:28 Pulse Ox 95 11/01/23 14:28 Oxygen Delivery Method Room Air 07/30/24 14:28 BMI result Body Mass Index 43.3 Const General: alert Neck Neck: Yes normal visual inspection, Yes full ROM and Yes no lymphadenopathy Chest Chest palpation & inspection: normal inspection of the chest Resp Auscultation: diminished lung sounds Cardio Rate: regular rate Rhythm: regular rhythm Heart sounds: S1 normal heart sound present and S2 normal heart sound present GI Palpation (GI): Soft to palpation and nontender Auscultation: normal bowel sounds Skin General skin exam: rashes and/or lesions noted Extrem General: Yes edema Assessment & Plan Assessment & Plan (1) LOWELL on CPAP: Code(s): G47.33 - Obstructive sleep apnea (adult) (pediatric); Z99.89 - Dependence on other enabling machines and devices Category: Medical (2) Limb swelling: Code(s): M79.89 - Other specified soft tissue disorders Category: Medical (3) Dyspnea: Comment: multifactorial. Does have underlying heart disease Code(s): R06.00 - Dyspnea, unspecified Category: Medical Qualifiers: Dyspnea type: dyspnea on exertion Qualified Code(s): R06.00 - Dyspnea, unspecified (4) Heart disease: Code(s): I51.9 - Heart disease, unspecified Category: Medical Plan continue APAP therapy 10-18 Continue using compression stockings Continue cardioprotective meds neti rinsing at night/nasal rinsng continue fluticasone continue Astelin nasal spray F/U 12 months Medications: New fluticasone propionate 50 mcg/actuation 2 sprays intranasal DAILY 15.8 mL 11RF 30 days J31.0 - Chronic rhinitis Changed From azelastine 2 sprays intranasal BID 30 mL 6RF To azelastine 2 sprays intranasal BID 30 mL 11RF 30 days Coding Level of Care Code Est Pt Level 4 (45644) Diagnoses LOWELL on CPAP G47.33; Z99.89 Limb swelling M79.89 Dyspnea on exertion R06.00 Dyspnea type: dyspnea on exertion Heart disease I51.9 Time Spent (min) 16
== END 2023-11-01 14:44 | disposition home or self-care (01) ==
PROVIDERS: PCP Internal Medicine; Visit Provider Hospitalist
DX: G47.33 Obstructive sleep apnea (adult) (pediatric) (principal); Z99.89 Dependence on other enabling machines and devices; M79.89 Other specified soft tissue disorders; R06.00 Dyspnea, unspecified; I51.9 Heart disease, unspecified
CPT/HCPCS: 99214

== ENCOUNTER → 2023-11-01 13:51 | Outpatient (BNVA) | payer MEDICARE, MEDICAID, SELFPAY | PROVIDERS: PCP Internal Medicine; Visit Provider Hospitalist | DX: R06.00 Dyspnea, unspecified (principal); I51.9 Heart disease, unspecified; G47.33 Obstructive sleep apnea (adult) (pediatric); E66.9 Obesity, unspecified; M79.89 Other specified soft tissue disorders; Z68.41 Body mass index [BMI] 40.0-44.9, adult; Z99.89 Dependence on other enabling machines and devices | CPT/HCPCS: 99212 ==

== ENCOUNTER 2023-11-09 13:41 | Outpatient (REF) | payer MEDICARE, MEDICAID, SELFPAY ==
--- NOTE | ~2023-11-09 | US_ITS ---
EXAMINATION: US EXTRACRANIAL CAROTID DUPLEX, BILATERAL CLINICAL INFORMATION: Carotid bruit COMPARISON: None available. TECHNIQUE: Real-time ultrasound and Doppler techniques (integrating B-mode 2-D vascular images, Doppler spectral analysis and color-flow Doppler imaging) were utilized to interrogate the extracranial carotid arteries, the vertebral arteries and proximal subclavian arteries bilaterally. The degree of stenosis is determined by criteria similar to NASCET. FINDINGS: Right Side: 1. There is no atherosclerotic plaque seen in the bifurcation/proximal ICA region. 2. The common carotid artery PSV proximally is 104 cm/s and distally 99 cm/s. 3. The proximal internal carotid artery velocities are 50 cm/s systolic and 14 cm/s diastolic. 4. The proximal external carotid artery PSV is 125 cm/s. 5. The vertebral artery shows antegrade flow. 6. The subclavian artery waveforms are normal. Left Side: 1. There is no atherosclerotic plaque seen in the bifurcation/proximal ICA region. 2. The common carotid artery PSV proximally is 122 cm/s and distally 131 cm/s. 3. The proximal internal carotid artery velocities are 58 cm/s systolic and 15 cm/s diastolic. 4. The proximal external carotid artery PSV is 108 cm/s. 5. The vertebral artery shows antegrade flow. 6. The subclavian artery waveforms are normal. US/US carotid duplex BI IMPRESSION: 1. RIGHT: Normal right internal carotid artery without atherosclerotic plaque or hemodynamically significant stenosis. 2. LEFT: Normal left internal carotid artery without atherosclerotic plaque or hemodynamically significant stenosis.
== END 2023-11-09 13:42 | disposition home or self-care (01) ==
LOC: HO.US 13:41
PROVIDERS: PCP Internal Medicine; Visit Provider Thoracic Surgery (Cardiothoracic Vascular Surgery)
DX: R09.89 Other specified symptoms and signs involving the circulatory and respiratory systems (principal)
CPT/HCPCS: 93880

== ENCOUNTER → 2023-11-23 12:46 | Outpatient (REF) | payer MEDICARE, MEDICAID, SELFPAY ==
--- NOTE | 2023-11-23 12:55 | CA_ITS ---
Transthoracic Echocardiogram Patient (Last, First, Middle): Austin Ni D Gender: Male Date of : 1955 Age: 68 Procedure Date: 11/23/2023 Procedure Type: Transthoracic Echocardiogram Location: OP Height: 172.72 cm Weight: 129.28 kg BSA: 2.38 m2 Heart Rate: bpm BP: 130 / 82 mmHg Glass Blower Helper: TO Referring MD: Anita CABRERA Plumbing Drafter: Roger Tariq MD Symptoms: Z01,818 PRE OP I25.10 ASCDW/O ANGINA Study Quality: Technically Difficult/Contrast ECG Rhythm: Sinus Conclusions: - 1. Technically limited study 2. LV ejection fraction appears to be preserved with LVEF of 55 60% 3. Limited evaluation of cardiac valvular structure Findings Procedure Information Contrast agent, definity, is being given per protocol with complications as noted. The study quality is limited by patients body habitus. The patient experienced back pain from contrast. Left Ventricle The left ventricle was not well visualized. The visually estimated ejection fraction is between 55-60%. Regional wall motion abnormalities can not be excluded due to suboptimal endocardial definition. Diastolic function is indeterminate on the basis of available data. Right Ventricle The right ventricle was not well visualized. Atria The left atrium was not well visualized. Interatrial shunt cannot be excluded. The right atrium was not well visualized. Aortic Valve The aortic valve was not well visualized. There is no aortic valve stenosis. Mitral Valve The mitral valve was not well visualized. Pulmonic Valve The pulmonic valve was not well visualized. Tricuspid Valve The tricuspid valve was not well visualized. Tricuspid regurgitation envelope is inadequate for calculation of right ventricular systolic pressure. Normal right atrial pressure. Great Vessels The aorta was not well visualized. The pulmonary artery was not well visualized. Venous The inferior vena cava is normal in size and collapses greater than 50% with inspiration. Pericardium/Pleural The pericardium was not well visualized. Measurements 2D Linear Measurements IVSd: 1.33 0.6-0.9/0.6-1.0 cm LVOT Diam: 2.10 3.0+(-)1.3 cm 2D Systolic Function EF 4C: 59.60 >55% Mitral Valve MV Pk E: 0.52 MV PK A: 0.81 MV Decel Time: 206.00 E/A: 0.60 E'Lateral: 5.87 E'Medial: 5.33 E/E' Med: 9.80 E/E' Lat: 8.90 PHT: 60.00 MVA PHT: 3.[address] [place]: 2.54 Aortic Valve AoV Pk Alejandro: 1.19 AoV Mn Alejandro: 0.88 AoV VTI: 0.25 AoV Pk Grad: 6.00 Aov Mn Grad: 3.00 AKAASH Cont.VTI: 2.88 LVOT LVOT Pk Alejandro: 0.95 LVOT Mn Alejandro: 0.63 LVOT VTI: 0.21 LVOT Pk Grad: 4.00 LVOT Mn Grad: 2.00 LVOT Diam: 2.10 LVOT Area: 3.46 Diastolic Function MV Pk E: 0.52 MV Pk A: 0.81 E/A: 0.60 E'Medial: 5.33 E/E' Med: 9.80 E' Laterial: 5.87 E/E' Lat: 8.90 Right Ventricle TAPSE (mm): 12.40 TVS' Alejandro: 11.70 Tricuspid Valve RA Press: 8.00 Great Vessels Aorta Sinus of Valsalva: 3.97 2.0-3.5 cm Ao Asc: 3.60 2.1-3.4 cm Updated in Other Vendor System with Status of Final Roger Tariq MD electronically signed on 11/23/2023 3:01:29 PM with status of Final
== END ==
LOC: HO.CARD 12:46
PROVIDERS: PCP Internal Medicine; Visit Provider Thoracic Surgery (Cardiothoracic Vascular Surgery)
DX: Z01.818 Encounter for other preprocedural examination (principal); I25.10 Atherosclerotic heart disease of native coronary artery without angina pectoris
CPT/HCPCS: 93306; Q9957

== ENCOUNTER → 2023-11-23 12:55 | Outpatient (BNV) | payer MEDICARE, MEDICAID, SELFPAY | PROVIDERS: PCP Internal Medicine; Visit Provider Internal Medicine Cardiovascular Disease | DX: I25.10 Atherosclerotic heart disease of native coronary artery without angina pectoris (principal) | CPT/HCPCS: 93306 ==

== ENCOUNTER 2024-01-12 15:03 | Outpatient (AMB) | payer MEDICARE, MEDICAID, SELFPAY ==
--- NOTE | 2024-01-12 15:11 | MHC.OFFVIS ---
Vital Signs 01/12/24 15:12 Height 5 ft 8 in Weight 268 lb 1.314 oz BMI 40.8 BP 114/60 Blood Pressure Location Rt brachial Position Sitting Pulse 67 Pulse Source Monitor Intake Visit Reasons: f/up [facility] Discharge Tire Trimmer Hand Required: No Switch Cleaner: Switch Cleaner Present Allergies perflutren Adverse Reaction (Verified 01/12/24 15:17) Back Pain Medication List - Last Reconciled 01/12/24 by Rosie Ferrara, GLASS CLEANER-C amiodarone 200 mg PO BID aspirin 1 tab PO DAILY atorvastatin 80 mg PO DAILY azelastine 2 sprays intranasal BID 30 days blood pressure monitor (Blood Pressure Kit) As directed compr.stocking,knee,long,large [id number] CPAP (CPAP Machine/Device) As directed docusate sodium (Stool Softener) 200 mg PO DAILY fluticasone propionate 50 mcg/actuation 2 sprays intranasal DAILY fluticasone propionate 50 mcg/actuation 2 sprays intranasal DAILY 30 days gabapentin 100 mg PO TID ibuprofen 400 mg PO Q6H PRN metoprolol tartrate 100 mg orally:( 1 tab) 100mg in am and (1/2 tab) 50mg in pm; 90 days morphine 15 mg PO TID PRN pantoprazole 40 mg PO DAILY terbinafine HCl 250 mg PO DAILY torsemide 20 mg PO BID HPI HPI f/up [facility] [place] Discharge: Details: Austin is a 68-year-old male with past medical history of hypertension, hyperlipidemia, sleep apnea with CPAP use, coronary artery disease with recommendation for Coronary artery bypass grafting 2019 and he refused at that time, recent reports of increasing chest discomfort with cardiac catheterization again showing three-vessel disease. He was referred back to cardiac surgery and underwent four-vessel coronary artery bypass grafting on 12/28/2023. Upon discharge he was sent to rehab. He now presents for follow-up. Today he reports that he has been doing generally well since his surgery. He does have some weakness and fatigue. He has sensitivity and tightness in the anterior chest wall. He denies other types of chest discomfort. His breathing is unlabored, no PND, orthopnea or edema. No palpitations, lightheadedness, presyncope, syncope. He has VNA at home along with home PT. He is taking all meds as directed. Son is present. [facility] Medical History Chest pain On beta marley at home Pre-diabetes HTN (hypertension) CAD (coronary artery disease) Limb swelling Heart disease Dyspnea LOWELL on CPAP Surgical History S/P cardiac catheterization History of right knee surgery (12/23/21) Hx of hemorrhoidectomy Hx of colonoscopy Family History Mother Arrhythmia HTN (hypertension) Father No problems noted. Social History Alcohol intake: never Patient Tobacco Use Status: Never used Tobacco Review of Systems Const All systems reviewed & are unremarkable except as noted in HPI and below ENT Denies dizziness Card Details: chest wall sensitive to touch and with movement Denies chest pain, Denies chest pain at rest, Denies chest pain with activity, Denies rapid heart rate, Denies pedal edema, Denies edema, Denies leg edema, Denies lightheadedness, Denies palpitations, Denies dyspnea, Denies dyspnea on exertion and Denies orthopnea Resp Denies cough, Denies dyspnea and Denies dyspnea on exertion GI Denies hematochezia and Denies change in stool character Musc Denies abnormal gait, Denies limited range of motion, Denies muscle cramps, Reports muscle weakness, Denies numbness, Denies radiating pain into limb, Denies stiffness and Denies tingling Neuro Denies abnormal gait, Denies dizziness, Denies numbness and Denies tingling Endo Denies palpitations Physical Exam Vital Signs: Last Vital Signs Pulse 67 01/12/24 15:12 BP 114/60 01/12/24 15:12 BMI result Body Mass Index 40.8 Const General: cooperative, healthy appearing, comfortable and no acute distress Orientation/consciousness: patient oriented x3 Neck Neck: Yes normal visual inspection Chest Other: sternal incision line well approximated. Drain sites intact with scabs, no signs infection. Resp Effort & Inspection: normal respiratory effort Auscultation: clear to auscultation bilaterally, no rales, no rhonchi and no wheezes Cardio Jugular venous distension: no JVD Rate: regular rate Rhythm: regular rhythm Heart sounds: S1 normal heart sound present, S2 normal heart sound present, no murmurs and no rubs Neuro General: patient oriented x3 Extrem Other: tiffany wraps to each lower leg, GSV graft site intact with scabbed incision. Left radial graft site intact, scab present. No signs infection Psych Appearance: grossly normal Mental Status: mental status grossly normal Speech and movement: Normal speech and movement present Office Procedures EKG Details: Today, read by me, normal sinus rhythm, can not exclude prior inferior infarct, T-wave inversion V2., rate 67, QTC 445 millisecond. Prior EKG shows nonspecific T-wave abnormalities [id number], Complete Assessment & Plan Assessment & Plan (1) Atherosclerotic cardiovascular disease: Code(s): I25.10 - Atherosclerotic heart disease of [place] coronary artery without angina pectoris Category: Medical Plan: History of CAD. Cardiac catheterization in 2019 with recommendation for coronary artery bypass grafting at that time. Patient declined surgery and was managing symptoms medically. He was having increasing chest discomfort and underwent repeat cardiac catheterization on 08/30/2023 again showing significant three-vessel CAD. He was referred to Cardiac surgery and underwent a four-vessel coronary artery bypass grafting on 12/28/2023. He did well and was discharged on day 4 to rehab. He is now home with VNA and therapy. He reports mild anterior chest wall sensitivity and tight sensation. No anginal sounding symptoms reported. Sternal incision is healing well without any signs of infection. EKG done today shows normal sinus rhythm with T-wave inversions leads 1, aVL and V2, rate 67. When compared to prior EKG he has nonspecific T-wave abnormalities noted. Will continue aspirin indefinitely. Continue amiodarone until prescription runs out. Continue high-dose atorvastatin with ideal LDL goal less than 70. Continue metoprolol and torsemide. He does not appear fluid overloaded on examination. Going forward we should be able to reduce torsemide dose. Will check echocardiogram 6 weeks post surgery. He has a date to start cardiac rehab on 02/07/2024. He believes he has follow-up with his surgeon in 1 month. Cardiology follow-up in this office in 2-3 months, sooner if needed. (2) S/P cardiac catheterization: Comment: 08/30/[address] Carrera LAD: Lesion in Dist LAD: Proximal subsection.100% stenosis .Chronic total occlusion. Lesion in 1st Diag: Ostial.75% stenosis. Lesion in Mid LAD: 80% stenosis . LCx: Lesion in Prox CX: Ostial.75% stenosis . RCA:Lesion in Prox RCA: Proximal subsection.100% stenosis .Chronic total occlusion. ACC Diagnostic Recommendations: CABG. Code(s): Z98.890 - Other specified postprocedural states Category: Surgical Plan: As above (3) Hx of cardiac catheterization: Comment: 08/31/2019, proximal LAD 80% stenosis, mid LAD 100%, 1st diagonal 60%, 2nd diagonal 70%, left circumflex 95%, 2nd OM 80%, RCA mid 100% stenosis Code(s): Z98.890 - Other specified postprocedural states Category: Surgical Plan: As above (4) S/P CABG x 4: Comment: 12/28/2023, amezquita to diagonal, radial graft to LAD, SVG to OM and right PDA Code(s): Z95.1 - Presence of aortocoronary bypass graft Category: Surgical Plan: As above (5) Hyperlipidemia: Code(s): E78.5 - Hyperlipidemia, unspecified Category: Medical Plan: [place] LDL goal less than 70. He is on high-dose atorvastatin. Will enter orders for fasting lipid to be done prior to next visit. (6) LOWELL on CPAP: Code(s): G47.33 - Obstructive sleep apnea (adult) (pediatric); Z99.89 - Dependence on other enabling machines and devices Category: Medical Plan: He reports compliance (7) Hospital discharge follow-up: Code(s): Z09 - Encounter for follow-up examination after completed treatment for conditions other than malignant neoplasm Category: Medical Plan: [facility] records reviewed. Plan Time spent on chart review, documentation, interview and assessment Orders: Orders CA echo transthoracic complete 1 Month Z95.1 - Presence of aortocoronary bypass graft Basic Metabolic Panel 1 Month I25.10 - Atherosclerotic heart disease of [place] coronary artery without angina pectoris Lipid Panel 1 Month I25.10 - Atherosclerotic heart disease of [place] coronary artery without angina pectoris Medications: New aspirin 1 tab PO DAILY 90 tabs 3RF metoprolol tartrate 100 mg orally:( 1 tab) 100mg in am and (1/2 tab) 50mg in pm; 90 days 135 tabs 1RF torsemide 20 mg PO BID 60 tabs 5RF Refilled atorvastatin 80 mg PO DAILY 90 tabs 3RF Discontinued metoprolol succinate ER Discontinued Reason: Patient no longer taking 100 mg PO DAILY 90 tabs 1RF isosorbide mononitrate ER Discontinued Reason: Patient no longer taking 30 mg PO DAILY 90 days 90 tabs 3RF I20.8 - Other forms of angina pectoris lisinopril Discontinued Reason: Patient no longer taking 40 mg PO DAILY 90 tabs 3RF nitroglycerin do not exceed 3 doses per episode Discontinued Reason: No Longer Medically Relevant 0.4 mg sublingual Q5M PRN 100 tabs 0RF Chest Pain Coding Level of Care Code Est Pt Level 4 (08560) Complex EM visit Add On G2211 Diagnoses Atherosclerotic cardiovascular disease I25.10 S/P cardiac catheterization Z98.890 Hx of cardiac catheterization Z98.890 S/P CABG x 4 Z95.1 Hyperlipidemia E78.5 LOWELL on CPAP G47.33; Z99.89 Hospital discharge follow-up Z09 CPT Codes EKG - CPT: [id number], Complete ([id number]) Time Spent (min) 36
[2024-01-12 15:12] VITALS: BP 114/60; PULSE 67; BMI 40.8
== END 2024-01-12 15:56 | disposition home or self-care (01) ==
PROVIDERS: PCP Internal Medicine; Visit Provider Nurse Practitioner Family
DX: I25.10 Atherosclerotic heart disease of native coronary artery without angina pectoris (principal); Z98.890 Other specified postprocedural states; Z95.1 Presence of aortocoronary bypass graft; E78.5 Hyperlipidemia, unspecified; G47.33 Obstructive sleep apnea (adult) (pediatric); Z99.89 Dependence on other enabling machines and devices; Z09 Encounter for follow-up examination after completed treatment for conditions other than malignant neoplasm
CPT/HCPCS: 93010; 99214; G2211

== ENCOUNTER → 2024-01-12 15:03 | Outpatient (BNVA) | payer MEDICARE, SELFPAY | PROVIDERS: PCP Internal Medicine; Visit Provider Nurse Practitioner Family | DX: Z09 Encounter for follow-up examination after completed treatment for conditions other than malignant neoplasm (principal); I25.10 Atherosclerotic heart disease of native coronary artery without angina pectoris; I10 Essential (primary) hypertension; E78.5 Hyperlipidemia, unspecified; G47.33 Obstructive sleep apnea (adult) (pediatric); Z98.890 Other specified postprocedural states; Z95.1 Presence of aortocoronary bypass graft; Z99.89 Dependence on other enabling machines and devices | CPT/HCPCS: 93005; 99212 ==

== ENCOUNTER → 2024-02-13 07:11 | Outpatient (REF) | payer MEDICARE, MEDICAID, SELFPAY ==
[2024-02-13 07:57] LABS: Anion Gap 12 (12-20); Blood Urea Nitrogen 14 mg/dL (9-16); Calcium 9.4 mg/dL (8.4-10.2); Carbon Dioxide 27 mmol/L (22-29); Chloride 106 mmol/L (96-108); Cholesterol 142 mg/dL (<200); Estimated Glomerular Filt Rate > 60; Glucose Random 99 mg/dL (60-115); HDL Cholesterol 41 mg/dL (>40); LDL Cholesterol Calculated 69 mg/dL (<100); Potassium 4.6 mmol/L (3.3-5.1); Sodium 140 mmol/L (135-145); Triglycerides 160 mg/dL (<150)
--- NOTE | 2024-02-13 12:41 | CA_ITS ---
Transthoracic Echocardiogram Patient (Last, First, Middle): Austin Ni D Gender: Male Date of : 1955 Age: 68 Procedure Date: 02/13/2024 Procedure Type: Transthoracic Echocardiogram Location: OP Height: 172.72 cm Weight: 119.3 kg BSA: 2.30 m2 Heart Rate: bpm BP: 130 / 80 mmHg Flower Shop Manager: LEVI Referring MD: Rosie Ferrara REWORK OPERATORShamika Symptoms: Z95.1 - Presence of aortocoronary bypass graft Study Quality: Fair ECG Rhythm: Sinus Conclusions: - The left ventricular systolic function is normal. The calculated ejection fraction is 61% by biplane method. - No obvious valvular pathology seen on this study. Findings Left Ventricle Normal left ventricular cavity size. There is mildly increased left ventricular wall thickness. The left ventricular systolic function is normal. The calculated ejection fraction is 61% by biplane method. There is no evidence of regional wall motion abnormalities. Diastolic function is normal for age. Definity not given due to previous reaction. Right Ventricle Mildly increased right ventricular cavity size. There is low normal right ventricular systolic function. Atria Both atria are normal in size. Aortic Valve There is a normal trileaflet aortic valve. There is no aortic valve stenosis. There is no aortic valve regurgitation. Mitral Valve The mitral valve appears normal. There is no mitral valve regurgitation. There is no mitral valve stenosis. Pulmonic Valve The pulmonic valve is likely normal. Tricuspid Valve There is trace tricuspid valve regurgitation. There is no evidence of pulmonary hypertension. Great Vessels The asc aorta is normal in size. Venous The inferior vena cava is normal in size and collapses greater than 50% with inspiration. Pericardium/Pleural There is no evidence of pericardial effusion. Prior Study Comparison No significant change compared to prior study dated: 11/23/2023. Recommendations, Care & Conclusions No obvious valvular pathology seen on this study. Measurements 2D Linear Measurements IVSd: 1.04 0.6-0.9/0.6-1.0 cm LVIDd: 4.29 3.9-5.3/4.2-5.9 cm LVIDd Index: 1.87 2.4-3.2/2.2-3.1 cm/m2 LVIDs: 2.78 2.0-3.6 cm LVPWd: 1.04 0.7-1.1 cm LA Diam: 4.60 2.7-3.8/3.0-4.0 cm LAIDs Index: 2.00 1.5-2.3 cm/m2 LV Mass: 186.70 67-162/88-224 g LV Mass Index: 81.17 43-95/49-115 g/m2 LVOT Diam: 2.10 3.0+(-)1.3 cm 2D Systolic Function EF 4C: 59.00 >55% EF 2C: 63.90 >55% EF BiP: 60.60 >55% Mitral Valve MV Pk E: 0.87 MV PK A: 0.66 MV Decel Time: 198.00 E/A: 1.30 E'Lateral: 11.40 E'Medial: 7.18 E/E' Med: 12.10 E/E' Lat: 7.60 PHT: 58.00 MVA PHT: 3.79 Decel Chambers: 4.39 Aortic Valve AoV Pk Alejandro: 1.24 AoV Mn Alejandro: 0.91 AoV VTI: 0.28 AoV Pk Grad: 6.00 Aov Mn Grad: 4.00 AAKASH Cont.VTI: 3.31 LVOT LVOT Pk Alejandro: 1.12 LVOT Mn Alejandro: 0.75 LVOT VTI: 0.27 LVOT Pk Grad: 5.00 LVOT Mn Grad: 3.00 LVOT Diam: 2.10 LVOT Area: 3.46 Diastolic Function MV Pk E: 0.87 MV Pk A: 0.66 E/A: 1.30 E'Medial: 7.18 E/E' Med: 12.10 E' Laterial: 11.40 E/E' Lat: 7.60 Right Ventricle TAPSE (mm): 21.90 TVS' Alejandro: 9.46 Tricuspid Valve TR Pk Alejandro: 1.72 TR Pk Grad: 12.00 RA Press: 3.00 RVSP: 15.00 Great Vessels Aorta Sinus of Valsalva: 4.08 2.0-3.[address] [place]: 3.33 1.7-3.4 cm Ao Asc: 3.50 2.1-3.4 cm Updated in Other Vendor System with Status of Final Valentino Siddiqui MD electronically signed on 02/13/2024 4:18:44 PM with status of Final
== END ==
LOC: HO.CARD 07:11
PROVIDERS: PCP Internal Medicine; Visit Provider Nurse Practitioner Family
DX: I25.10 Atherosclerotic heart disease of native coronary artery without angina pectoris (principal); Z95.1 Presence of aortocoronary bypass graft
CPT/HCPCS: 36415; 80048; 80061; 93306

== ENCOUNTER → 2024-02-13 12:41 | Outpatient (BNV) | payer MEDICARE, MEDICAID, SELFPAY | PROVIDERS: PCP Internal Medicine; Visit Provider Internal Medicine | DX: I25.810 Atherosclerosis of coronary artery bypass graft(s) without angina pectoris (principal) | CPT/HCPCS: 93306 ==

== ENCOUNTER 2024-03-12 11:11 | Outpatient (AMB) | payer MEDICARE, SELFPAY ==
[2024-03-12 11:22] VITALS: BP 140/76; PULSE 60; BMI 40.8
--- NOTE | 2024-03-12 11:22 | MHC.OFFVIS ---
Vital Signs 03/12/24 11:22 Height 5 ft 8 in Weight 268 lb 8.368 oz BMI 40.8 BP 140/76 H Blood Pressure Location Lt brachial Position Sitting Pulse 60 Pulse Source Pulse Oximeter Intake Visit Reasons: 2 mth f/up Combustion Analyst Required: Yes Combustion Analyst Language: Corporate Real Estate Specialist Name: [id number] Accompanied by: Self / Same As Patient Allergies perflutren Adverse Reaction (Verified 01/12/24 15:17) Back Pain Medication List - Last Reconciled 03/12/[address] Carrera MD aspirin 1 tab PO DAILY atorvastatin 80 mg PO DAILY azelastine 2 sprays intranasal BID 30 days blood pressure monitor (Blood Pressure Kit) As directed compr.stocking,knee,long,large [id number] CPAP (CPAP Machine/Device) As directed docusate sodium (Stool Softener) 200 mg PO DAILY fluticasone propionate 50 mcg/actuation 2 sprays intranasal DAILY gabapentin 100 mg PO BID ibuprofen 400 mg PO Q6H PRN metoprolol tartrate 100 mg orally:( 1 tab) 100mg in am and (1/2 tab) 50mg in pm; 90 days morphine 15 mg PO TID PRN terbinafine HCl 250 mg PO DAILY torsemide 20 mg PO QAM HPI Comments Details: 66-year-old gentleman with a complex multivessel coronary artery disease. He was referred for bypass surgery but he was reluctant to undergo surgery. He has been medically managed since then. Was started on amlodipine and this was titrated to 10 mg and he developed lower extremity edema and he stopped taking amlodipine. On follow-up today he is denying any chest discomfort shortness of breath. His blood pressure is elevated. He has knee injury and is not working and not as active as before. 03/12/2024: He returns for follow-up. He had 4 vessel bypass surgery in December 2023. He is still has some reproducible chest pain as well as right thigh pain at venous harvest site. He is saying they due to pain and occasional lightheaded episodes he has been using a walker since the surgery. He is taking torsemide 20 mg daily for peripheral edema. He still has mild edema on examination. [facility] Medical History Chest pain On beta marley at home Pre-diabetes HTN (hypertension) CAD (coronary artery disease) Limb swelling Heart disease Dyspnea LOWELL on CPAP Surgical History S/P cardiac catheterization History of right knee surgery (12/23/21) Hx of hemorrhoidectomy Hx of colonoscopy Family History Mother Arrhythmia HTN (hypertension) Father No problems noted. Social History Alcohol intake: never Patient Tobacco Use Status: Never used Tobacco Review of Systems Const Denies chills, Denies fatigue, Denies fever(s), Denies frequent falls, Denies weakness, Denies weight gain and Denies weight loss ENT Reports dizziness Card Reports chest pain, Denies leg edema, Reports lightheadedness, Denies palpitations, Denies dyspnea and Denies dyspnea on exertion Resp Denies cough, Denies dyspnea and Denies dyspnea on exertion GI Denies hematochezia Musc Denies abnormal gait, Denies muscle weakness, Denies numbness, Denies radiating pain into limb and Denies tingling Neuro Denies abnormal gait, Reports dizziness, Denies frequent falls, Denies numbness, Denies tingling and Denies weakness Endo Denies fatigue and Denies palpitations Physical Exam Vital Signs: Last Vital Signs Pulse 60 03/12/24 11:22 BP 140/76 H 03/12/24 11:22 BMI result Body Mass Index 40.8 GENERAL APPEARANCE: in no acute distress, obese.. NECK/THYROID: no carotid bruit, no jugular venous distention. SKIN: Midline healed scar. HEART: no murmurs, regular rate and rhythm, S1, S2 normal. LUNGS: clear to auscultation bilaterally. ABDOMEN: normal, bowel sounds present, soft, nontender, nondistended. EXTREMITIES: 1+ edema at ankles. PERIPHERAL PULSES: equal. NEUROLOGIC: nonfocal, alert and oriented. PSYCH: mood/affect full range. Assessment & Plan Assessment & Plan (1) S/P CABG x 4: Comment: 12/28/2023, amezquita to diagonal, radial graft to LAD, SVG to OM and right PDA Code(s): Z95.1 - Presence of aortocoronary bypass graft Category: Surgical (2) Chest pain: Code(s): R07.9 - Chest pain, unspecified Category: Medical (3) Stable angina: Code(s): I20.8 - Other forms of angina pectoris Category: Medical Plan 68-year-old gentleman who is here for follow-up. He has background history of multivessel complex coronary disease for which she underwent bypass surgery in December 2023. He is recovered well but continues to have some reproducible chest pains and right thigh pain. He has been using a walker. He has some lightheaded feeling when he is standing for long hours and uses walker for that purpose. Clinical examination overall is stable and he has mild edema but does not appear to be in heart failure. He will continue same medications for now. He is blood pressure is mildly elevated but he is complaining of some lightheaded feeling when he is standing and I think we have to be careful with increasing his antihypertensive medications. He will see us back in few months. Thank you for allowing me to participate in the care of your patient. Please feel free to contact me if you have any questions. Coding Level of Care Code Est Pt Level 4 (55187) Diagnoses S/P CABG x 4 Z95.1 Chest pain R07.9 Stable angina I20.8
--- OUTSIDE RECORDS SUMMARY | 2024-03-14 15:06 | XMS_ITS | Clinical Summary ---
Author Organization Unknown Care Team Providers [facility] Drill Operator Name Role Phone BINA TOMLINSON MD, SIOBHAN Unavailable Unavail able NAA PT, KATHY Unavailable Unavailable JANAE RAMIREZ, GONZALO Unavailable Unavailable Payers Payer Name Policy Type Policy Number Effective Date Expira tion Date MEDICARE - NGS [place] - PDGM [id number] MEDICAID [facility] [id number] Problems Condition Name Condition Details Condition Category Status Onset Date Resolution Date Last Treatment Date Treating Clinician Comments ENCNTR FOR SURGICAL AFTCR FOLLOWING SURGERY ON THE CIRC SYS Active 04-04 00:00: 00 ATHSCL HEART DISEASE OF [place] CORONARY ARTERY W/O ANG PCTRS Active 04-04 00:00: 00 ESSENTIAL (PRIMARY) HYPERTENSION Active 04-04 00:00: 00 OBESITY, UNSPECIFIED Active 04-04 00:00: 00 BODY MASS INDEX [BMI]40.0-44 .9, ADULT Active 04-04 00:00: 00 OBSTRUCTIVE SLEEP APNEA (ADULT) (PEDIATRIC) Active 04-04 00:00: 00 CONTUSION OF ABDOMINAL WALL, SUBSEQUENT ENCOUNTER Active 04-04 00:00: 00 OTH POSTPROC COMPLICATION S AND DISORDERS OF RESP SYS, NEC Active 04-04 00:00: 00 FLUID OVERLOAD, UNSPECIFIED Active 04-04 00:00: 00 ANEMIA, UNSPECIFIED Active 04-04 00:00: 00 ATELECTASIS Active 04-04 00:00: 00 PRESENCE OF AORTOCORONAR Y BYPASS GRAFT Active 04-04 00:00: 00 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 Ordering Clinician Indication Dosage Frequency Signature (SIG) Comments Components amiodarone 200 mg tablet 01-01 00:00: 00 Yes [id number] 1 tablet 2 TIMES DAILY 1 tablet 2 TIMES DAILY (route: oral) Med Classific ation: Cardiovas cular Therapy Agents gabapentin 100 mg capsule 01-01 00:00: 00 Yes [id number] 1 capsule 3 TIMES DAILY 1 capsule 3 TIMES DAILY (route: oral) Med Classific ation: Central Nervous System Agents pantoprazol e 40 mg tablet,ritu yed release 01-01 00:00: 00 02-01 23:59 :00 No [id number] 1 tablet DAILY 1 tablet DAILY (route: oral) Med Classific ation: Gastroint estinal Therapy Agents torsemide 20 mg tablet 01-01 00:00: 00 02-01 23:59 :00 No [id number] 2 tablet DAILY 2 tablet DAILY (route: oral) Med Classific ation: Cardiovas cular Therapy Agents aspirin 81 mg tablet,ritu yed release 2023-04 00:00: 00 Yes [id number] 1 tablet DAILY 1 tablet DAILY (route: oral) Med Classific ation: Hematolog ical Agents atorvastati n 80 mg tablet 2023-04 00:00: 00 Yes [id number] 1 tablet BEDTIME 1 tablet BEDTIME (route: oral) Med Classific ation: Cardiovas cular Therapy Agents Colace 100 mg capsule 2023-04 00:00: 00 02-01 23:59 :00 No [id number] 2 capsule DAILY 2 capsule DAILY (route: oral) Med Classific ation: Gastroint estinal Therapy Agents Fish Oil 300 mg-500 mg capsule 2023-04 00:00: 00 Yes [id number] 1 capsule DAILY 1 capsule DAILY (route: oral) Med Classific ation: Cardiovas cular Therapy Agents fluticasone propionate 50 mcg/actuati on nasal spray,suspe nsion 2023-04 00:00: 00 Yes [id number] 1 spray DAILY 1 spray DAILY (route: nasal) Med Classific ation: Respirato ry Therapy Agents metoprolol tartrate 75 mg tablet 2023-04 0 00:00: 00 Yes [id number] 1 tablet 2 TIMES DAILY 1 tablet 2 TIMES DAILY (route: oral) Med Classific ation: Cardiovas cular Therapy Agents Tylenol Extra Strength 500 mg tablet 2023-04 0 00:00: 00 Yes [id number] 2 tablet 2 TIMES DAILY 2 tablet 2 TIMES DAILY (route: oral) Med Classific ation: Analgesic , Anti-infl ammatory or Antipyret ic Vital Signs Vital Name Observation Time Observation Value Commen ts Temperature 2024-02-02 12:24:00.000 97.1 [degF] Temperature 2024-02-01 13:09:00.000 98.9 [degF] Temperature 2024-01-27 13:02:00.000 98.1 [degF] Temperature 2024-01-26 12:15:00.000 96.6 [degF] Temperature 2024-01-19 12:12:00.000 96.7 [degF] Temperature 2024-01-17 14:02:00.000 99.3 [degF] Temperature 2024-01-11 14:56:00.000 96.7 [degF] Temperature 2024-01-10 11:35:00.000 97.1 [degF] Temperature 2024-01-04 12:56:00.000 98.3 [degF] BMI (%) 2024-01-04 12:56:00.000 41 kg/m2 Height 2024-01-04 12:56:00.000 68 [in_us] Pulse 2024-02-02 12:24:00.000 60 /min Pulse 2024-02-01 13:09:00.000 64 /min Pulse 2024-01-27 13:02:00.000 60 /min Pulse 2024-01-26 12:15:00.000 86 /min Pulse 2024-01-19 12:12:00.000 66 /min Pulse 2024-01-17 14:02:00.000 54 /min Pulse 2024-01-11 14:56:00.000 60 /min Pulse 2024-01-10 11:35:00.000 62 /min Pulse 2024-01-04 12:56:00.000 76 /min O2 Saturation (%) 2024-02-02 12:24:00.000 96 % O2 Saturation (%) 2024-02-01 13:09:00.000 96 % O2 Saturation (%) 2024-01-27 13:02:00.000 98 % O2 Saturation (%) 2024-01-26 12:15:00.000 96 % O2 Saturation (%) 2024-01-19 12:12:00.000 95 % O2 Saturation (%) 2024-01-17 14:02:00.000 95 % O2 Saturation (%) 2024-01-11 14:56:00.000 97 % O2 Saturation (%) 2024-01-10 11:35:00.000 98 % O2 Saturation (%) 2024-01-04 12:56:00.000 97 % Respirations 2024-02-02 12:24:00.000 18 /min Respirations 2024-02-01 13:09:00.000 17 /min Respirations 2024-01-27 13:02:00.000 18 /min Respirations 2024-01-26 12:15:00.000 20 /min Respirations 2024-01-19 12:12:00.000 20 /min Respirations 2024-01-17 14:02:00.000 18 /min Respirations 2024-01-11 14:56:00.000 20 /min Respirations 2024-01-04 12:56:00.000 20 /min Weight (lbs) 2024-01-04 12:56:00.000 276 [lb_av] Systolic Blood Pressure 2024-02-02 12:24:00.000 116 mm [Hg] Systolic Blood Pressure 2024-02-01 13:09:00.000 126 mm [Hg] Systolic Blood Pressure 2024-01-27 13:02:00.000 122 mm [Hg] Systolic Blood Pressure 2024-01-26 12:15:00.000 122 mm [Hg] Systolic Blood Pressure 2024-01-19 12:12:00.000 122 mm [Hg] Systolic Blood Pressure 2024-01-17 14:02:00.000 110 mm [Hg] Systolic Blood Pressure 2024-01-11 14:56:00.000 124 mm [Hg] Systolic Blood Pressure 2024-01-10 11:35:00.000 112 mm [Hg] Systolic Blood Pressure 2024-01-04 12:56:00.000 122 mm [Hg] Diastolic Blood Pressure 2024-02-02 12:24:00.000 80 mm [Hg] Diastolic Blood Pressure 2024-02-01 13:09:00.000 80 mm [Hg] Diastolic Blood Pressure 2024-01-27 13:02:00.000 80 mm [Hg] Diastolic Blood Pressure 2024-01-26 12:15:00.000 84 mm [Hg] Diastolic Blood Pressure 2024-01-19 12:12:00.000 72 mm [Hg] Diastolic Blood Pressure 2024-01-17 14:02:00.000 80 mm [Hg] Diastolic Blood Pressure 2024-01-11 14:56:00.000 74 mm [Hg] Diastolic Blood Pressure 2024-01-10 11:35:00.000 70 mm [Hg] Diastolic Blood Pressure 2024-01-04 12:56:00.000 80 mm [Hg] Plan of Treatment Planned Activity Planned Date Details Comments Future Scheduled Test SKILLED NU RSE TO EVALUATE PATIENT, IDENTIFY PRIMARY AND CO-MORBID CONDITIONS CODED PER CODING GUIDELINES, AND DEVELOP PATIENT SPECIFIC PLAN OF CARE THAT INCLUDES PATIENT GOAL FOR HOME HEALTH. [code = SKILLED NURSE TO EVALUATE PATIENT, IDENTIFY PRIMARY AND CO-MORBID CONDITIONS CODED PER CODING GUIDELINES, AND DEVELOP PATIENT SPECIFIC PLAN OF CARE THAT INCLUDES PATIENT GOAL FOR HOME HEALTH.] Future Scheduled Test SKILLED NU RSE TO REVIEW PATIENT MEDICATIONS. INSTRUCT PATIENT/CAREGIVER ON MONITORING OF EFFECTIVENESS, ADVERSE DRUG REACTIONS, SIDE EFFECTS OF ALL MEDICATIONS (PRESCRIPTION/-OTC), AND HOW AND WHEN TO REPORT PROBLEMS. [code = SKILLED NURSE TO REVIEW PATIENT MEDICATIONS. INSTRUCT PATIENT/CAREGIVER ON MONITORING OF EFFECTIVENESS, ADVERSE DRUG REACTIONS, SIDE EFFECTS OF ALL MEDICATIONS (PRESCRIPTION/-OTC), AND HOW AND WHEN TO REPORT PROBLEMS.] Future Scheduled Test SKILLED NU RSE FOR O/A, TEACHING, AND MANAGEMENT OF CARDIAC DISEASE, CAD [code = SKILLED NURSE FOR O/A, TEACHING, AND MANAGEMENT OF CARDIAC DISEASE, CAD] Future Scheduled Test SKILLED NU RSE FOR O/A, TEACHING RELATED TO GERD, CONSTIPATION FOR EARLY IDENTIFICATION OF EXACERBATION OF DISEASE PROCESS. [code = SKILLED NURSE FOR O/A, TEACHING RELATED TO GERD, CONSTIPATION FOR EARLY IDENTIFICATION OF EXACERBATION OF DISEASE PROCESS.] Future Scheduled Test PHYSICAL T HERAPIST TO EVALUATE PATIENT FOR STRENGTH AND GAIT TRAINING [code = PHYSICAL THERAPIST TO EVALUATE PATIENT FOR STRENGTH AND GAIT TRAINING ] Future Scheduled Test SKILLED NU RSE TO PROVIDE TEACHING ON SIGNS AND SYMPTOMS AND MANAGEMENT OF HYPERTENSION. [code = SKILLED NURSE TO PROVIDE TEACHING ON SIGNS AND SYMPTOMS AND MANAGEMENT OF HYPERTENSION.] Future Scheduled Test VIRTUAL SIT FREQUENCY: 3-4 PRN VIRTUAL VISITS FOR HIGH RISK ASSESSMENTS AND/OR CHANGE IN STATUS MAY BE PERFORMED UTILIZING TELECOMMUNICATIONS SYSTEM TO OPTIMIZE SKILLED SERVICES FURNISHED ON THE PLAN OF CARE. SKILLED NURSE TO ESTABLISH SUPPORT MEASURES TO MINIMIZE RISK OF REHOSPITALIZATION, AND INSTRUCT PATIENT/CAREGIVER ON METHODS TO REDUCE AVOIDABLE HOSPITALIZATION. [code = VIRTUAL VISIT FREQUENCY: 3-4 PRN VIRTUAL VISITS FOR HIGH RISK ASSESSMENTS AND/OR CHANGE IN STATUS MAY BE PERFORMED UTILIZING TELECOMMUNICATIONS SYSTEM TO OPTIMIZE SKILLED SERVICES FURNISHED ON THE PLAN OF CARE. SKILLED NURSE TO ESTABLISH SUPPORT MEASURES TO MINIMIZE RISK OF REHOSPITALIZATION, AND INSTRUCT PATIENT/CAREGIVER ON METHODS TO REDUCE AVOIDABLE HOSPITALIZATION.] Future Scheduled Test PATIENT CAMACHO S A RISK OF HOSPITALIZATION AND ED USE. SKILLED NURSE TO ESTABLISH SUPPORT MEASURES TO MINIMIZE RISK OF HOSPITALIZATION AND ED USE, AND INSTRUCT PATIENT/CAREGIVER ON METHODS TO REDUCE AVOIDABLE HOSPITALIZATION AND ED USE. [code = PATIENT HAS A RISK OF HOSPITALIZATION AND ED USE. SKILLED NURSE TO ESTABLISH SUPPORT MEASURES TO MINIMIZE RISK OF HOSPITALIZATION AND ED USE, AND INSTRUCT PATIENT/CAREGIVER ON METHODS TO REDUCE AVOIDABLE HOSPITALIZATION AND ED USE.] Future Scheduled Test SKILLED NU RSE TO PROVIDE INSTRUCTION TO PATIENT/CAREGIVER RELATED TO DISCHARGE PLANNING. [code = SKILLED NURSE TO PROVIDE INSTRUCTION TO PATIENT/CAREGIVER RELATED TO DISCHARGE PLANNING.] Future Scheduled Test SKILLED NU RSE TO PERFORM HOME SAFETY AND FALL ASSESSMENT AND PROVIDE INSTRUCTION TO IMPLEMENT HOME SAFETY AND FALL PREVENTION STRATEGIES. [code = SKILLED NURSE TO PERFORM HOME SAFETY AND FALL ASSESSMENT AND PROVIDE INSTRUCTION TO IMPLEMENT HOME SAFETY AND FALL PREVENTION STRATEGIES.] Future Scheduled Test SKILLED NU RSE FOR OBSERVATION AND ASSESSMENT OF PATIENTS PAIN LEVEL AND EFFECTIVENESS OF PAIN MANAGEMENT REGIMEN. SKILLED NURSE TO INSTRUCT PATIENT/CAREGIVER REGARDING PHARMACOLOGIC AND NON-PHARMACOLOGIC PAIN CONTROL MEASURES. SKILLED NURSE TO REPORT TO PHYSICIAN IF PAIN IS UNCONTROLLED WITH CURRENT PAIN MANAGEMENT REGIMEN. [code = SKILLED NURSE FOR OBSERVATION AND ASSESSMENT OF PATIENTS PAIN LEVEL AND EFFECTIVENESS OF PAIN MANAGEMENT REGIMEN. SKILLED NURSE TO INSTRUCT PATIENT/CAREGIVER REGARDING PHARMACOLOGIC AND NON-PHARMACOLOGIC PAIN CONTROL MEASURES. SKILLED NURSE TO REPORT TO PHYSICIAN IF PAIN IS UNCONTROLLED WITH CURRENT PAIN MANAGEMENT REGIMEN.] Future Scheduled Test SKILLED NU RSE TO ASSESS PATIENT'S SKIN INTEGRITY AND INSTRUCT PATIENT/CAREGIVER ON MEASURES TO PREVENT PRESSURE ULCERS. [code = SKILLED NURSE TO ASSESS PATIENT'S SKIN INTEGRITY AND INSTRUCT PATIENT/CAREGIVER ON MEASURES TO PREVENT PRESSURE ULCERS.] Goal 2024-02-02 Patient Goal - K ERP GETTING BETTER, LOSE MORE WEIGGT Goal Provider Goal - A PLAN OF CARE WILL BE ESTABLISHED THAT MEETS PATIENT'S DETENTION NEEDS AND INCLUDES PATIENT GOAL FOR HOME HEALTH. Goal Provider Goal - PATIENT/CAREGIVER WILL VERBALIZE UNDERSTANDING OF EDUCATION PROVIDED ON MEDICATIONS BY THE END OF THE CERTIFICATION PERIOD. Goal Provider Goal - PATIENT/CAREGIVER WILL VERBALIZE/DEMONSTRATE MANAGEMENT OF CARDIAC DISEASE PROCESS AND EXACERBATIONS WILL BE IDENTIFIED AND PROMPTLY REPORTED THROUGHOUT THE CERTIFICATION PERIOD. Goal Provider Goal - EXACERBATIONS OF GASTROINTESTINAL DISEASE WILL BE PROMPTLY IDENTIFIED AND INTERVENTIONS IMPLEMENTED TO MINIMIZE RISKS TO PATIENT BY END OF EPISODE. Goal Provider Goal - A PHYSICAL THERAPY EVALUATION TO BE COMPLETED WITH RECOMMENDATIONS AND/OR WRITTEN PLAN OF TREATMENT ESTABLISHED FOR PHYSICIANS SIGNATURE. Goal Provider Goal - PATIENT/CAREGIVER WILL VERBALIZE SIGNS AND SYMPTOMS OF HYPERTENSION AND WILL BE ABLE TO DEMONSTRATE ABILITY TO MANAGE EXACERBATION BY END OF THE EPISODE. Goal Provider Goal - PATIENT/CAREGIVER WILL UTILIZE VIRTUAL VISITS TO ACHIEVE GOALS OUTLINED ON THE PLAN OF CARE. PATIENT WILL HAVE SUPPORT MEASURES ESTABLISHED TO PREVENT HOSPITALIZATION AND PATIENT/CAREGIVER WILL VERBALIZE/DEMONSTRATE METHODS TO REDUCE AVOIDABLE HOSPITALIZATION THROUGHOUT THE CERTIFICATION PERIOD. Goal Provider Goal - PATIENT WILL HAVE SUPPORT MEASURES ESTABLISHED TO PREVENT HOSPITALIZATION AND ED USE AND PATIENT/CAREGIVER WILL VERBALIZE/DEMONSTRATE METHODS TO REDUCE AVOIDABLE HOSPITALIZATION AND ED USE BY END OF EPISODE. Goal Provider Goal - PATIENT/CAREGIVER WILL VERBALIZE UNDERSTANDING OF DISCHARGE PLANNING INSTRUCTIONS BY DATE OF DISCHARGE. Goal Provider Goal - PATIENT/CAREGIVER WILL VERBALIZE/DEMONSTRATE EFFECTIVE HOME SAFETY AND FALL PREVENTION STRATEGIES THROUGHOUT CERTIFICATION PERIOD. Goal Provider Goal - PATIENT/CAREGIVER WILL DEMONSTRATE UNDERSTANDING OF PHARMACOLOGIC AND NONPHARMACOLOGIC PAIN CONTROL MEASURES AND PATIENT WILL HAVE IMPROVEMENT IN PAIN INTERFERING WITH ACTIVITY EVIDENCED BY PAIN CONTROLLED AT LEVEL OF 7 OR LESS BY END OF CERTIFICATION PERIOD. Goal Provider Goal - PATIENT/CAREGIVER WILL VERBALIZE UNDERSTANDING OF PRESSURE ULCER PREVENTION BY END OF THE EPISODE. Reason for Visit INDEPENDENT IN THE HOME Encounters Start Date/Time End Date/Time Encounter Type Admission Type Attending [facility] Care [facility] Care Department Encounter ID Discharge Date Discharge Status Discharge Condition Discharge Reason Percent Goals Met 2024-01-04 00:00:00 2024-02-02 00:00:00 Outpatient NEW ADMISSION GONZALO CARDOSO [facility] [id number] 2024-02-02 00:00:00 DISCHARGE TO HOME OR SELF CARE INDEPENDEN T IN THE HOME PER CLIENT REQUEST 90.63
== END 2024-03-12 12:54 | disposition home or self-care (01) ==
PROVIDERS: PCP Internal Medicine; Visit Provider Internal Medicine Cardiovascular Disease
DX: Z95.1 Presence of aortocoronary bypass graft (principal); R07.9 Chest pain, unspecified; I20.89 Other forms of angina pectoris
CPT/HCPCS: 99214

== ENCOUNTER → 2024-03-12 11:11 | Outpatient (BNVA) | payer MEDICARE, SELFPAY | PROVIDERS: PCP Internal Medicine; Visit Provider Internal Medicine Cardiovascular Disease | DX: I20.89 Other forms of angina pectoris (principal); R07.9 Chest pain, unspecified; Z95.1 Presence of aortocoronary bypass graft | CPT/HCPCS: 99212 ==

== ENCOUNTER 2024-05-11 13:30 | Outpatient (RCR) | payer MEDICARE, MEDICAID, SELFPAY | END 2024-05-11 14:57 | disposition home or self-care (01) | LOC: HO.CR 13:30 | PROVIDERS: PCP Internal Medicine; Visit Provider Physician Assistant Surgical | DX: Z95.1 Presence of aortocoronary bypass graft (principal) | CPT/HCPCS: 93798 ==

== ENCOUNTER 2024-06-07 13:04 | Outpatient (AMB) | payer MEDICARE, SELFPAY ==
[2024-06-07 13:46] VITALS: BMI 41.9
--- NOTE | 2024-06-07 13:46 | A.OFFVIS_ITS ---
VS Expanded 06/07/24 13:46 06/19/24 10:17 Height 5 ft 8 in 5 ft 8 in Weight 275 lb 9.245 oz BMI 41.9 41.8 Intake Visit Reasons: Presence of aortocoronary bypass graft Allergies perflutren Adverse Reaction (Verified 01/12/24 15:17) Back Pain Nutrition Presentation Details: Pt presents for MNT for hx of CABG x4 with morbid obesity food frequency fruits: 0-2x/wk vex/wk dairy : 3+/d starches > 28/d fish: 0-2/m fluids: water, juice,soda, milk fried foods: using air fryers (reducing on fried foods) pastries and similar 1-2/d physical actity: ADL etoh/smoking---- BS Monitoring Most Recent Diabetes Results: Cholesterol 142 mg/dL (<200) 02/13/24 HDL Cholesterol 41 mg/dL (>40) 02/13/24 Triglycerides 160 mg/dL (<150) H 02/13/24 Creatinine 0.97 mg/dL (0.5-1.4) 02/13/24 Blood Urea Nitrogen 14 mg/dL (9-16) 02/13/24 Sodium 140 mmol/L (135-145) 02/13/24 Potassium 4.6 mmol/L (3.3-5.1) 02/13/24 Chloride 106 mmol/L (96-108) 02/13/24 Carbon Dioxide 27 mmol/L (22-29) 02/13/24 Calcium 9.4 mg/dL (8.4-10.2) 02/13/24 ZGP-[id number]-Ow.Jeor Equation Height: 5 ft 8 in Weight: 275 lb Resting Metabolic Rate: 2005.91 Calculated Activity Level: Sedentary Calories Needed to Maintain Weight: 2407.09 Diagnosis Nutrition problem #1: excessive energy intake As related to (etiology) #1: diagnosis As evidenced by (sign/symptom) #1: high BMI (43.1 (06/2024)) [facility] Medical History Chest pain On beta marley at home Pre-diabetes HTN (hypertension) CAD (coronary artery disease) Limb swelling Heart disease Dyspnea LOWELL on CPAP Surgical History S/P cardiac catheterization History of right knee surgery (12/23/21) Hx of hemorrhoidectomy Hx of colonoscopy Family History Mother Arrhythmia HTN (hypertension) Father No problems noted. Social History Alcohol intake: never Patient Tobacco Use Status: Never used Tobacco Assessment & Plan Assessment & Plan (1) S/P CABG x 4: Comment: BMI 43.1 on 06/2024) Code(s): Z95.1 - Presence of aortocoronary bypass graft Category: Surgical Plan: Wt: 125 Kg ( 06/19/24 ) Est kcal needs as per MSJ: 2400 (40% carb, 30% protein/fat) Est fluid needs as per 25-30 ml/d: 3750 Est prot per day as per 1 g/kg bw: 125 Recommend fiber intake : 8-10 g per day and gradually increase to 25-28 g per day for women and 35-38 g for men or as tolerated Recommend sodium intake per day : less than 1500 mg less than 2000 mg Educated patient on: ( R = reviewed V = verbalizes understanding N/R = needs review N/A = not applicable * Food sources of carbohydrate, adequate serving sizes and its role in various health conditions: R V N/R * Differences between complex carbohydrates a simple carbohydrates, role of fiber in diet: R * Lean protein sources of foods: R V NR * Differences between types of fats and role in diet (mono on saturated fat fatty acids, saturated fatty acids, trans fats): R basic low fat * Food sources of sodium in salt and healthy modifications for heart health in kidney health: R V R/V * Vitamins and minerals: R V N/R * Healthy plate method concept: R V N/R * Physical activity: Benefits a precaution: R V N/R * Dietary prevention of Hyperglycemia: R Patient Instructions: Reduce on snacks /sugary snacks (pastries/juice drinks, sugar added to foods) have a fruit at bedtime with no sugar added peanut butter Practice mindful eating Coding Level of Care Code Nutr Indiv Intake (30930) Diagnoses S/P CABG x 4 Z95.1 Time Spent (min) 30
--- OUTSIDE RECORDS SUMMARY | 2024-06-07 15:49 | XMS_ITS | Clinical Summary ---
Author Organization 175 [facility] Address [address] [place] [address] Phone Care Team Providers Care Denture Packer Name Role Phone Lida Emmanuel MD Primary Care Prov ider Allergies No known active allergies Medications nitroglycerin (NITROSTAT) 0.4 mg SL tablet take one tablet under the tongue every five minutes for chest pain, may repeat times 2. Call 911 if 3rd tablet needed 9 Active aspirin 81 mg EC tablet 1 TABLET DAILY 7 Active torsemide (DEMADEX) 20 mg tablet Take 1 tablet (20 mg total) by mouth 2 (two) times a day. 4 Active terbinafine (LamISIL) 250 mg tablet Take 1 tablet (250 mg total) by mouth 1 (one) time each day. 4 Active gabapentin (NEURONTIN) 100 mg capsule Take 1 capsule (100 mg total) by mouth 3 (three) times a day. 90 capsule 1 4 Active azelastine (ASTELIN) 137 mcg (0.1 %) nasal spray Administer 2 sprays into each nostril 2 (two) times a day. 4 Active fluticasone propionate (FLONASE) 50 mcg/actuation nasal spray Administer 2 sprays into each nostril 1 (one) time each day. 4 Active atorvastatin (LIPITOR) 80 mg tablet Take 1 tablet (80 mg total) by mouth 1 (one) time each day. 90 each 3 5 04/24/19 26 Active metoprolol succinate (TOPROL-XL) 100 mg 24 hr tablet Take 1 tablet (100 mg total) by mouth 1 (one) time each day. 90 each 3 5 04/24/19 26 Active ammonium lactate (AmLactin) 12 % lotion Apply topically if needed for dry skin. 400 g 2 5 05/01/19 26 Active docusate sodium (COLACE) 100 mg capsule Take 2 capsules (200 mg total) by mouth 2 (two) times a day if needed for constipation. 180 capsule 4 06/05/19 25 Active Problems Problem Noted Date Diagnosed Date Positive hepatitis C antibody test 07/12/2023 Overview (01/16/2024): Negative viral load Low back pain radiating to right leg 06/03/2008 Pulmonary nodules 06/03/2008 Overview (01/16/2024): Multiple noncalcified lung nodules with the largest measuring 5 mm. Current Fleischner Society of Thoracic Radiology recommendations for a low risk patient would consist of a single followup CT at 12 months to document stability Sleep apnea 05/08/2007 Coronary atherosclerosis 01/25/2007 Assessment & Plan (04/24/2024 3:18 PM EST): Follows regularly with cardiology, currently on cardiac rehab. Continue aspirin and atorvastatin. Assessment & Plan (03/08/2024 12:41 PM EST): On Atorvastatin, ASA and meds as above. No exacerbation of symptoms. Follows regularly with cardiology. Orders: Basic metabolic panel; Future Pain in limb 01/25/2007 Essential hypertension, benign 12/26/2006 Assessment & Plan (04/24/2024 3:18 PM EST): Hypertension is well-controlled. Today 106/66. Currently on metoprolol 100 mg, torsemide 20 mg twice daily. Will continue same regimen. Assessment & Plan (03/08/2024 12:42 PM EST): HTN is well controlled on metoprolol, and torsemide. Will continue same regimen. Orders: Basic metabolic panel; Future Encounters Date Type Department Care Team Description 05/01/2024 2:00 PM EST Office Visit Orthopedic Surgery - [place] [address] [place] [phone] Aaron Sullivan DPM Pain in both feet (Primary Dx); Arthritis of both feet; Hammertoes of both feet; PAD (peripheral artery disease) (CMS/HCC); Dermatophytosis, nail; Xerosis cutis 04/24/2024 1:30 PM EST Office Visit Adult Medicine [address] [phone] Lida Branch MD Tremor of both hands (Primary Dx); Essential hypertension, benign; Atherosclerosis of [place] coronary artery of [place] heart with other form of angina pectoris ([facility]/HCC); Influenza vaccine needed; Encounter for screening involving social determinants of health (SDoH) 04/06/2024 Telephone Adult Medicine [address] [phone] Lida Branch MD Forms/questionnaires ([facility]) 03/15/2024 Telephone Adult Medicine [address] [phone] Lida Branch MD Forms/questionnaires ([facility]) from Last 3 Months Immunizations Name Administration Dates Next Due H1N1 Inj Preservative Free 04/01/2009 Influenza trivalent, 0.5mL ( Fluad) 65yo and older 04/24/2024,12/04/2022 Influenza trivalent, 0.5mL, preservative free (Fluarix; FluLaval; Fluzone) ages 6mo and older (Afluria) 3 years and older 01/02/2018,12/15/2016,03/06/2016,2008 Influenza, Unspecified 03/26/2023 Moderna (age 6mo & older) Bi valent, COVID-19, 0.5 mL or 0.25 mL dosage 04/16/2022 Pneumococcal conjugate 20 va lent (Prevnar 20, PCV 20) 2mo and older 12/04/2022 Td Tetanus diptheria (Tdvax) 7yo and older 05/27/2023 Tdap Tetanus diptheria acell ular pertussis (Boostrix; Adacel) 7yo and older 12/26/2006 Zoster recombinant (Shingrix ) 19yo and older 03/29/2019,2018 Surgical History Surgery Date Site/Laterality Comments OTHER SURGICAL HISTORY PROCEDURE: [place] HEMORRHOIDECTOMY INTERNAL RUBBER BAND LIGATIONS KNEE SURGERY PROCEDURE: HISTORICAL KNEE SURGERY Medical History Medical History Date Comments Essential hypertension, benign 12/26/2006 D X:Essential hypertension, benign CAD (coronary artery disease) DX :CAD (coronary artery disease) Family History Medical History Relation Name Comments Hypertension Brother 1 ESRD Father Heart attack Mother Hypertension Mother Breast cancer Neg Hx Colon cancer Neg Hx Relation Name Status Comments Brother 1 Alive HTN Brother 2 Alive Brother 3 Alive Daughter Alive Asthma Father Mother Sister 1 Alive HTN Sister 2 Alive Sister 3 Alive Sister 4 Alive Son Alive Asthma Social History Tobacco Use Types Packs/Day Years Used Date Smoking Tobacco: Never Smokeless Tobacco: Never Tobacco Cessation:Counseling Given: Not Answered Alcohol Use Standard Drinks/Week Comments Never 0 (1 standard drink = 0.6 oz pur e alcohol) Housing Instability Answer Date Recorde d Are you worried that in the next 2 months you may not have stable housing? No 04/24/2024 Food Access & Nutrition Answer Date Rec orded Do you have access to a vari ety of food including fruits and vegetables? Yes 04/24/2024 Access to Healthcare Answer Date Record ed Within the last 3 months, ho w many times did you visit the emergency department for your medical care? 0 04/24/2024 Health Literacy Answer Date Recorded How often do you need to hav e someone help you when you read instructions, pamphlets, or other written material from your doctor or pharmacy? Never 04/24/2024 Caregiver: How often do you need to have someone help you when you read instructions, pamphlets, or other written material from your doctor or pharmacy? Not on file 04/24/2024 Financial Risk Answer Date Recorded How hard is it for you to pa y for the very basics like food, housing, medical care, and air conditioning / heating? Not very hard 04/24/2024 Transportation Answer Date Recorded Has the lack of transportati on kept you from meetings, work, or from getting things needed for daily living? No Has the lack of transportati on kept you from medical appointments or from getting medications? No 04/24/2024 Food Risk Answer Date Recorded Within the past 12 months we worried whether our food would run out before we got money to buy more. Never true 04/24/2024 Within the past 12 months th e food we bought just didn't last and we didn't have money to get more. Never true 04/24/2024 Living Situation Answer Date Recorded What is your living situation? 0 04/24/2024 Sex and Gender Information Value Date Recorded Sex Assigned at Not on file Legal Sex Male 8:40 PM EST Gender Identity Not on file Sexual Orientation Not on file Obstetrics History Last Filed Vital Signs Vital Sign Reading Time Taken Comments Blood Pressure 106/66 04/24/2024 1:10 PM EST Pulse 62 04/24/2024 1:10 PM EST Temperature 36.3 ??C (97.3 ??F) 04/24/2024 1:10 PM ES T Respiratory Rate 20 04/24/2024 1:10 PM EST Oxygen Saturation - - Inhaled Oxygen Concentration - - Weight 124 kg (273 lb) 05/01/2024 1:54 PM EST Height 172.7 cm (5' 7.99 ) 05/01/2024 1:54 PM ES T Body Mass Index 41.52 05/01/2024 1:54 PM EST Plan of Treatment Upcoming Encounters Date Type Department Care Team (Late st Contact Info) Description 06/12/2024 1:30 PM EDT Office Visit Adult Medicine [address] [phone] Lida Emmanuel MD [address] [place] [phone] 07/03/2024 1:30 PM EDT Office Visit Orthopedic Surgery - [address] [phone] Aaron Sullivan, DPM [address] [phone] Health Maintenance Due Date Last Done Comments Hepatitis B Vaccines (3 of 3 - 19+ 3-dose series) 08/18/2015 06/19/2015, 02/17/2015 RSV Immunization Patients 60+ Years Old (1 - Risk 60-74 years 1-dose series) 2017 Medicare Annual Wellness Visit 04/29/2023 COVID-19 Vaccine ( season) 2023 04/16/2022, 04/06/2021, 08/13/2020, Additional history exists Depression Screening 10/25/2024 10/26/2023 Falls Risk Assessment 10/25/2024 10/26/2023 Hypertension/CHF/CAD Annual BMP Blood Test 03/13/2025 03/13/2024, 07/08/2023 Social Influencers of Health Screening 04/24/2025 04/24/2024 Colorectal Cancer Screening: FIT-DNA (Cologuard) 11/02/2026 11/03/2023, 11/03/2023 Cholesterol Screening (Lipid Panel) 07/07/2028 07/08/2023 DTaP,Tdap,and Td Vaccines (4 - Td or Tdap) 05/27/2033 05/27/2023, 03/21/2013, 12/26/2006 Hepatitis A Vaccines Aged Out 06/19/2015, 02/18/20 15 No longer eligible based on patient's age to complete this topic Zoster Vaccines Completed 03/29/2019, 2018 Pneumococcal Vaccine: 50+ Years Completed 12/04/2022, 03/21/2013 Hepatitis C Screening Completed 07/12/2023 Influenza Vaccine Completed 04/24/2024, , 12/04/2022, Additional history exists HIB Vaccines Aged Out No longer eligi ble based on patient's age to complete this topic HPV Vaccines Aged Out No longer eligi ble based on patient's age to complete this topic IPV Vaccines Aged Out No longer eligi ble based on patient's age to complete this topic MMR Vaccines Aged Out No longer eligi ble based on patient's age to complete this topic Meningococcal ACWY Vaccine Aged Out N o longer eligible based on patient's age to complete this topic Meningococcal B Vacine Aged Out No lo nger eligible based on patient's age to complete this topic RSV Immunization Patients Under 20 months Aged Out No longer eligible based on patient's age to complete this topic Varicella Vaccines Aged Out No longer eligible based on patient's age to complete this topic Procedures Procedure Name Priority Date/Time Associated Diagnosis Comments CBC WITH AUTO DIFFERENTIAL Routine 04/24/2024 2:10 PM EST Tremor of both hands CBC AND DIFFERENTIAL Routine 04/24/2024 2:10 PM EST Tremor of both hands VITAMIN B12 Routine 04/24/2024 2:10 PM EST Tremor of both hands BASIC METABOLIC PANEL Routine 03/13/2024 8:34 AM EST Essential hypertension, benign Atherosclerosis of [place] coronary artery of [place] heart with stable angina pectoris (CMS/HCC) HM FIT-DNA Routine 11/03/2023 HM DEPRESSION SCREENING Routine 10/26/2023 HM FALLS RISK ASSESSMENT Routine 10/26/2023 HM HEPATITIS C SCREENING Routine 07/12/2023 LIPID PANEL Routine 07/08/2023 from Last 3 Months or Most Recently Relevant to Health Maintenance Results * (ABNORMAL) CBC auto differential (04/24/2024 2:10 PM EST) WBC 6.8 4.8 - 10.8 K/mcL LAB HEMETOLOGY METHOD 04/24/2024 5:[address] [facility] RBC 4.60 4.50 - 5.50 M/mcL LAB HEMETOLOGY METHOD 04/24/2024 5:[address] [facility] Hemoglobin 14.2 13.5 - 17.5 g/dL LAB HEMETOLOGY METHOD 04/24/2024 5:06 PM [facility] Hematocrit 40.5(L) 42.0 - 54.0 % LAB HEMETOLOGY METHOD 04/24/2024 5:06 PM [facility] MCV 88.0 79.0 - 98.0 FL LAB HEMETOLOGY METHOD 04/24/2024 5:06 PM [facility] MCH 30.9 27.0 - 32.0 pcg LAB HEMETOLOGY METHOD 04/24/2024 5:06 PM [facility] MCHC 35.1 32.0 - 37.0 g/dL LAB HEMETOLOGY METHOD 04/24/2024 5:06 PM [facility] RDW 13.9 11.0 - 15.0 % LAB HEMETOLOGY METHOD 04/24/2024 5:06 PM [facility] Platelets 224 130 - 400 K/mcL LAB HEMETOLOGY METHOD 04/24/2024 5:06 PM [facility] MPV 11.2(H) 7.0 - 11.0 FL LAB HEMETOLOGY METHOD 04/24/2024 5:06 PM [facility] NRBC 0.0 <1.0 % LAB HEMETOLOGY METHOD 04/24/2024 5:06 PM [facility] NRBC Absolute 0.00 <0.10 K/mcL LAB HEMETOLOGY METHOD 04/24/2024 5:06 PM [facility] Neutrophils Relative 55.6 % LAB HEMETOLOGY METHOD 04/24/2024 5:06 PM [facility] Lymphocytes Relative 28.4 % LAB HEMETOLOGY METHOD 04/24/2024 5:06 PM [facility] Monocytes Relative 11.3 % LAB HEMETOLOGY METHOD 04/24/2024 5:06 PM [facility] Eosinophils Relative 4.0 % LAB HEMETOLOGY METHOD 04/24/2024 5:[address] [facility] Basophils Relative 0.6 % LAB HEMETOLOGY METHOD 04/24/2024 5:06 PM [facility] Immature Granulocytes Relative 0.1 % LAB HEMETOLOGY METHOD 04/24/2024 5:06 PM [facility] Neutrophils Absolute 3.75 1.50 - 7.00 K/mcL LAB HEMETOLOGY METHOD 04/24/2024 5:[address] [facility] Lymphocytes Absolute 1.92 1.00 - 5.00 K/mcL LAB HEMETOLOGY METHOD 04/24/2024 5:06 PM [facility] Monocytes Absolute 0.76 0.20 - 1.00 K/mcL LAB HEMETOLOGY METHOD 04/24/2024 5:06 PM [facility] Eosinophils Absolute 0.27 0.00 - 0.50 K/mcL LAB HEMETOLOGY METHOD 04/24/2024 5:[address] [facility] Basophils Absolute 0.04 0.00 - 0.20 K/mcL LAB HEMETOLOGY METHOD 04/24/2024 5:06 PM [facility] Immature Granulocytes Absolute 0.01 0.00 - 0.03 K/mcL LAB HEMETOLOGY METHOD 04/24/2024 5:06 PM [facility] Blood Venous blood specimen / Unknown Venipuncture / Unknown 04/24/2024 2:10 PM EST 04/24/2024 2:10 PM EST us Lida Emmanuel MD LAB BLOOD ORDERABL ES Final Result [facility] [address] [place] [address], * Vitamin B12 (04/24/2024 2:10 PM EST) Pathologist [facility] Vitamin B-12 276 250 - 900 pcg/mL LAB CHEMISTRY METHOD 04/24/2024 5:42 PM [facility] Blood Venous blood specimen / Unknown Venipuncture / Unknown 04/24/2024 2:10 PM EST 04/24/2024 2:10 PM EST us Lida Emmanuel MD LAB BLOOD ORDERABL ES Final Result [facility] [address] [place] [address], [place] [phone] * (ABNORMAL) Basic metabolic panel (03/13/2024 8:34 AM EST) [facility] Sodium 141 133 - 145 mmol/L LAB CHEMISTRY METHOD 03/13/2024 10:02 AM [facility] Potassium 4.7 3.5 - 5.5 mmol/L LAB CHEMISTRY METHOD 03/13/2024 10:02 AM [facility] Chloride 104 96 - 110 mmol/L LAB CHEMISTRY METHOD 03/13/2024 10:02 AM [facility] CO2 32 21 - 32 mmol/L LAB CHEMISTRY METHOD 03/13/2024 10:02 AM [facility] Anion Gap 5 3 - 11 LAB CHEMISTRY METHOD 03/13/2024 10:02 AM [facility] Glucose 114(H) 70 - 100 mg/dL LAB CHEMISTRY METHOD 03/13/2024 10:02 AM [facility] BUN 16 5 - 25 mg/dL LAB CHEMISTRY METHOD 03/13/2024 10:02 AM [facility] Creatinine 1.24 0.70 - 1.30 mg/dL LAB CHEMISTRY METHOD 03/13/2024 10:02 AM [facility] eGFR 64 >=60 mL/min/1. 73m2 LAB CHEMISTRY METHOD 03/13/2024 10:02 AM [facility] Comment:Calculation based on the??Chronic Kidney Disease Epidemiology Collaboration (CKD-EPI) equation refit??without adjustment for race. BUN/Creatinine Ratio 12.9 LAB CHEMISTRY METHOD 03/13/2024 10:[address] [facility] Calcium 9.4 8.5 - 10.5 mg/dL LAB CHEMISTRY METHOD 03/13/2024 10:[address] [facility] Blood Venous blood specimen / Unknown Venipuncture / Unknown 03/13/2024 8:34 AM EST 03/13/2024 8:34 AM EST Lida Emmanuel MD LAB BLOOD ORDERABL ES Final Result [facility] [address] [place] [address], [place] [phone] * FIT-DNA (Cologuard) (11/03/2023) [facility] Colorectal Cancer Screening: FIT-DNA (Cologuard) abstracted, no interpretation [facility] Provider HEALTH MAINTENANCE Final Result * Falls Risk Assessment (10/26/2023) [facility] Falls Risk Assessment abstracted [facility] Provider HEALTH MAINTENANCE Final Result * Depression Screening (10/26/2023) [facility] Depression Screening abstracted [facility] Provider MD HEALTH MAINTENANCE Final Result * Hepatitis C Screening (07/12/2023) [facility] Hepatitis C Screening abstracted [facility] Provider HEALTH MAINTENANCE Final Result * (ABNORMAL) Lipid panel (07/08/2023) [facility] LDL/HDL Ratio 3 0 - 4 Triglycerides 178(A) 0 - 150 mg/dL Cholesterol 147 0 - 200 mg/dL HDL 49 >=40 mg/dL LDL Cholesterol 63 0 - 100 mg/dL Blood Venous blood specimen / Unknown us Historical Provider LAB BLOOD ORDERABLES Gabby l Result from Last 3 Months or Most Recently Relevant to Health Maintenance Insurance MEDICARE MEDICAID - [place] Care Teams Denture Packer Relationship Specialty Start Date End Date Lida Emmanuel MD [address] [place] [id number] PCP - General 01/14/23
[2024-06-19 10:17] VITALS: BMI 41.8
== END 2024-06-07 14:17 | disposition home or self-care (01) ==
PROVIDERS: PCP Internal Medicine; Visit Provider Dietitian, Registered
DX: Z95.1 Presence of aortocoronary bypass graft (principal)

== ENCOUNTER → 2024-06-07 13:04 | Outpatient (BNVA) | payer OTHER, SELFPAY | PROVIDERS: PCP Internal Medicine; Visit Provider Dietitian, Registered | DX: E66.01 Morbid (severe) obesity due to excess calories (principal); R73.03 Prediabetes; Z71.3 Dietary counseling and surveillance; Z95.1 Presence of aortocoronary bypass graft; Z68.41 Body mass index [BMI] 40.0-44.9, adult | CPT/HCPCS: 97802 ==

== ENCOUNTER 2024-06-13 15:02 | Outpatient (AMB) | payer MEDICARE, SELFPAY ==
--- NOTE | 2024-06-13 15:11 | A.OFFVIS_ITS ---
Vital Signs 06/13/24 15:14 Height 5 ft 8 in Weight 272 lb 0.807 oz BMI 41.4 BP 134/62 Blood Pressure Location Lt brachial Position Sitting Pulse 64 Pulse Source Pulse Oximeter Intake Visit Reasons: 3 mth f/up Intake Note: 3 mth f/up Train Engineer Required: Yes Train Engineer Language: Biochemistry Technologist Name: [id number] Accompanied by: Spouse Allergies perflutren Adverse Reaction (Verified 01/12/24 15:17) Back Pain Medication List - Last Reconciled 06/13/[address]rera MD aspirin 1 tab PO DAILY atorvastatin 80 mg PO DAILY azelastine 2 sprays intranasal BID 30 days blood pressure monitor (Blood Pressure Kit) As directed compr.stocking,knee,long,large [id number] CPAP (CPAP Machine/Device) As directed docusate sodium (Stool Softener) 200 mg PO DAILY fluticasone propionate 50 mcg/actuation 2 sprays intranasal DAILY gabapentin 100 mg PO BID ibuprofen 400 mg PO Q6H PRN metoprolol tartrate 100 mg orally:( 1 tab) 100mg in am and (1/2 tab) 50mg in pm; 90 days morphine 15 mg PO TID PRN terbinafine HCl 250 mg PO DAILY torsemide 20 mg PO QAM HPI Comments Details: 68-year-old gentleman with a complex multivessel coronary artery disease. He was referred for bypass surgery but he was reluctant to undergo surgery. He has been medically managed since then. Was started on amlodipine and this was titrated to 10 mg and he developed lower extremity edema and he stopped taking amlodipine. On follow-up today he is denying any chest discomfort shortness of breath. His blood pressure is elevated. He has knee injury and is not working and not as active as before. 03/12/2024: He returns for follow-up. He had 4 vessel bypass surgery in December 2023. He is still has some reproducible chest pain as well as right thigh pain at venous harvest site. He is saying they due to pain and occasional lightheaded episodes he has been using a walker since the surgery. He is taking torsemide 20 mg daily for peripheral edema. He still has mild edema on examination. 06/13/2024: Here for follow-up. He is complaining of some right leg discomfort with the vein was harvested. He also is complaining of some left-sided chest discomfort. He thinks this is related to doing arm ergometer machine during exercise. He does not have any significant exertional symptoms. Definitely not getting any anginal symptoms as these symptoms are quite different from his anginal presentation. [facility] Medical History Chest pain On beta marley at home Pre-diabetes HTN (hypertension) CAD (coronary artery disease) Limb swelling Heart disease Dyspnea LOWELL on CPAP Surgical History S/P cardiac catheterization History of right knee surgery (12/23/21) Hx of hemorrhoidectomy Hx of colonoscopy Family History Mother Arrhythmia HTN (hypertension) Father No problems noted. Social History Alcohol intake: never Patient Tobacco Use Status: Never used Tobacco Review of Systems Const Denies chills, Denies fatigue, Denies fever(s), Denies frequent falls, Denies weakness, Denies weight gain and Denies weight loss ENT Denies dizziness Card Denies chest pain, Denies leg edema, Denies lightheadedness, Denies palpitations, Denies dyspnea and Denies dyspnea on exertion Resp Denies cough, Denies dyspnea and Denies dyspnea on exertion GI Denies hematochezia Musc Denies abnormal gait, Denies muscle weakness, Denies numbness, Denies radiating pain into limb and Denies tingling Neuro Denies abnormal gait, Denies dizziness, Denies frequent falls, Denies numbness, Denies tingling and Denies weakness Endo Denies fatigue and Denies palpitations Physical Exam Vital Signs: Last Vital Signs Pulse 64 06/13/24 15:14 BP 134/62 06/13/24 15:14 BMI result Body Mass Index 41.4 GENERAL APPEARANCE: in no acute distress, obese.. NECK/THYROID: no carotid bruit, no jugular venous distention. SKIN: Midline healed scar. HEART: no murmurs, regular rate and rhythm, S1, S2 normal. LUNGS: clear to auscultation bilaterally. ABDOMEN: normal, bowel sounds present, soft, nontender, nondistended. EXTREMITIES: 1+ edema at ankles. PERIPHERAL PULSES: equal. NEUROLOGIC: nonfocal, alert and oriented. PSYCH: mood/affect full range. Assessment & Plan Assessment & Plan (1) S/P CABG x 4: Comment: 12/28/2023, amezquita to diagonal, radial graft to LAD, SVG to OM and right PDA Code(s): Z95.1 - Presence of aortocoronary bypass graft Category: Surgical (2) Chest pain: Code(s): R07.9 - Chest pain, unspecified Category: Medical Plan [age] year gentleman who is here for follow-up. He has known history of complex coronary artery disease and after some discussion he underwent coronary artery bypass surgery in December of 2023. He has done well from cardiovascular point of view but has some postop issues including numbness and pain in the right thigh as well as left-sided chest pain off and on. The pain is after exercise and even when he moves his torso he gets some discomfort. I have advised him to treated symptomatically with Tylenol and some [id number] pain gels like BenGay. He can also use ibuprofen PRN but I have advised him not to use it regularly due to risk of peptic ulcer and GI blood loss. He understands that. Follow-up in 4 months with Rosie. Thank you for allowing me to participate in the care of your patient. Please feel free to contact me if you have any questions. Coding Level of Care Code Est Pt Level 4 (90269) Diagnoses S/P CABG x 4 Z95.1 Chest pain R07.9
[2024-06-13 15:14] VITALS: BP 134/62; PULSE 64; BMI 41.4
--- OUTSIDE RECORDS SUMMARY | 2024-06-13 17:41 | XMS_ITS | Encounter Summary ---
Author Organization [facility] Address [address] [place] [address] Care Team Providers Care Talent Buyer Name Role Phone Lida Emmanuel MD Primary Care Prov ider Reason for Visit * Reason Comments Medicare Annual Wellness Visit Initial Encounter Details Date Type Department Care Team (Late st Contact Info) Description 06/12/2024 1:30 PM EDT Office Visit Adult Medicine [address] [phone] Lida Emmanuel MD [address] [place] [address] Essential hypertension, benign (Primary Dx); Atherosclerosis of [place] coronary artery of [place] heart with other form of angina pectoris (CMS/HCC); LOWELL (obstructive sleep apnea); B12 deficiency Social History Tobacco Use Types Packs/Day Years [...] Record ed Within the last 3 months, dinorah weinberg many times did you visit the emergency [...] on file Sexual Orientation Not on file documented as of this encounter Last Filed Vital Signs Vital Sign Reading Time Taken Comments Blood Pressure 122/60 06/12/2024 1:31 PM EDT Pulse 63 06/12/2024 1:31 PM EDT Temperature 36 ??C (96.8 ??F) 06/12/2024 1:31 PM EDT Respiratory Rate 16 06/12/2024 1:31 PM EDT Oxygen Saturation - - Inhaled Oxygen Concentration - - Weight 124 kg (274 lb) 06/12/2024 1:31 PM EDT Height - - Body Mass Index 41.67 05/01/2024 1:54 PM EST documented in this encounter Patient Instructions * Attachments The following attachments cannot be sent through Care Everywhere. * Vitamin B12 Deficiency (Irish) documented in this encounter Ordered Prescriptions Prescription Sig Dispense Quantity Refills Last Filled Start Date End Date bisacodyL (DULCOLAX) 5 mg EC tablet Take 1 tablet (5 mg total) by mouth 1 (one) time each day if needed for constipation . Do not crush, chew, or split. 30 tablet 2 06/12/2024 09/10/2024 documented in this encounter Progress Notes * Lida Emmanuel MD - 06/12/2024 1:30 PM EDTAssociated Problem(s): Essential hypertension, benign * Lida Emmanuel MD - 06/12/2024 1:30 PM EDTAssociated Problem(s): Coronary atherosclerosis * Lida Emmanuel MD - 06/12/2024 1:30 PM EDT Images from the original note were not included. Medicare Annual Wellness Visit Note Patient Name: Austin Borja Date of : 1955 Race: Unknown Ethnicity: Other , /a, or Irish origin Date of Service: 06/12/2024 Patient Care Team: Lida Emmanuel MD as PCP - General Patient does not currently have/use medical supplier. Austin is a 68 y.o. male presenting for Medicare Annual Wellness Visit Initial Patient with a pmh of coronary artery disease, hypertension, LOWELL on a CPAP, CABG in December/2023,comes for AWV and med follow up. Feels well, compliant with medications, follows the recommended diet. Not using the walker anymore,now he will start using a cane for right knee pain and imbalance. Follows with cardiology, has an appt tomorrow. Complains of constipation that does not improve with Colace. Lives with his , his son and daughter in law. Patient Active Problem List Diagnosis Essential hypertension, benign Coronary atherosclerosis Low back pain radiating to right leg Pain in limb Positive hepatitis C antibody test Pulmonary nodules Sleep apnea No Known Allergies Current Outpatient Medications Medication Instructions ammonium lactate (AmLactin) 12 % lotion Topical, As needed aspirin 81 mg EC tablet 1 TABLET DAILY atorvastatin (LIPITOR) 80 mg, oral, Daily azelastine (ASTELIN) 137 mcg (0.1 %) nasal spray 2 sprays, 2 times daily fluticasone propionate (FLONASE) 50 mcg/actuation nasal spray 2 sprays, Daily gabapentin (NEURONTIN) 100 mg, oral, 3 times daily metoprolol succinate (TOPROL-XL) 100 mg, oral, Daily nitroglycerin (NITROSTAT) 0.4 mg SL tablet take one tablet under the tongue every five minutes for chest pain, may repeat times 2. Call 911 if 3rd tablet needed terbinafine (LAMISIL) 250 mg, Daily torsemide (DEMADEX) 20 mg, 2 times daily Past Medical History: Diagnosis Date CAD (coronary artery disease) DX:CAD (coronary artery disease) Essential hypertension, benign 12/26/2006 DX:Essential hypertension, benign Past Surgical History: Procedure Laterality Date KNEE SURGERY PROCEDURE: HISTORICAL KNEE SURGERY OTHER SURGICAL HISTORY PROCEDURE: [place] HEMORRHOIDECTOMY INTERNAL RUBBER BAND LIGATIONS Social History Tobacco Use Smoking status: Never Smokeless tobacco: Never Substance Use Topics Alcohol use: Never Drug use: Never Family History Problem Relation Name Age of Onset Heart attack Mother Hypertension Mother ESRD Father Hypertension Brother Colon cancer Neg Hx Breast cancer Neg Hx Immunization History Administered Date(s) Administered H1N1 Inj Preservative Free 04/01/2009 Influenza trivalent, 0.5mL (Fluad) 65yo and older 12/04/2022, 04/24/2024 Influenza trivalent, 0.5mL, preservative free (Fluarix; FluLaval; Fluzone) ages 6mo and older (Afluria) 3 years and older 04/01/2009, 03/06/2016, 12/15/2016, 01/02/2018 Influenza, Unspecified 03/26/2023 Moderna (age 6mo & older) Bivalent, COVID-19, 0.5 mL or 0.25 mL dosage 04/16/2022 Moderna SARS-CoV-2 COVID-19, mRNA, LNP-S, preservative free 07/16/2020, 08/13/2020 Pfizer SARS-CoV-2 COVID-19, mRNA, LNP-S, preservative free 04/06/2021 Pneumococcal conjugate 20 valent (Prevnar 20, PCV 20) 2mo and older 12/04/2022 Td Tetanus diptheria (Tdvax) 7yo and older 05/27/2023 Tdap Tetanus diptheria acellular pertussis (Boostrix; Adacel) 7yo and older 12/26/2006 Zoster recombinant (Shingrix) 19yo and older 2018, 03/29/2019 Health Maintenance Topic Date Due Hepatitis B Vaccines (3 of 3 - 19+ 3-dose series) 08/18/2015 RSV Immunization Patients 60+ Years Old (1 - Risk 60-74 years 1-dose series) Never done COVID-19 Vaccine ( season) 2023 Falls Risk Assessment 10/25/2024 Depression Screening 10/25/2024 Hypertension/CHF/CAD Annual BMP Blood Test 03/13/2025 Social Influencers of Health Screening 04/24/2025 Medicare Annual Wellness Visit 06/12/2025 Colorectal Cancer Screening: FIT-DNA (Cologuard) 11/02/2026 Cholesterol Screening (Lipid Panel) 07/07/2028 DTaP,Tdap,and Td Vaccines (4 - Td or Tdap) 05/27/2033 Influenza Vaccine Completed Pneumococcal Vaccine: 50+ Years Completed Zoster Vaccines Completed Hepatitis C Screening Completed HIB Vaccines Aged Out IPV Vaccines Aged Out Hepatitis A Vaccines Aged Out MMR Vaccines Aged Out Varicella Vaccines Aged Out Meningococcal ACWY Vaccine Aged Out Meningococcal B Vacine Aged Out HPV Vaccines Aged Out RSV Immunization Patients Under 20 months Aged Out Hospitalization in the last year: Has been hospitalized once in the past 12 months. Cognitive Function Assessment: Cognitive screening performed. Mini COG Clock Drawing Test: Normal Word Recall: One Word Mini Cog Score: 3 Mini Cog Results: Negative screen for dementia Fall Screening: Have you fallen in the past year? no. Are you worried about falling? yes. . Depression Screening Over the last 2 weeks, how often have you been bothered by little interest or pleasure in doing things?: Nearly every day Over the last 2 weeks, how often have you been bothered by feeling down, depressed, or hopeless?: More than half the days Depression Risk: 5 PHQ9 Full Set of Questions Over the last 2 weeks, how often have you been bothered by little interest or pleasure in doing things?: Nearly every day Over the last 2 weeks, how often have you been bothered by feeling down, depressed, or hopeless?: More than half the days Depression Risk Score NEW: 5 Functional Ability and Level of Safety Review Health Status: In general, the patient reports health as: fair In general, patient reports life as: fair Patient reports sleep pattern as: up all night Have you seen a dentist in the last year?: Yes Activity of Daily Living (ADLs): Do you need help from others for your personal care such as eating, dressing, toileting, or gettingaround the house?: Yes Do you experience incontinence?: Yes Instrumental Activities of Daily Living (IADLs): Do you need help with using the telephone?: No Do you need help with shopping?: Yes Do you need help with food preparation?: Yes Do you need help with housekeeping?: Yes Do you need help with laundry?: Yes Do you need help handling finances?: No Do you drive?: Yes Do you manage your own medication?: Yes, independent Physical Activity: Do you exercise for about 20 minutes or more three days a week?: Yes, always Nutritional Assessment: Do you eat a balanced diet including daily serving of fruits, vegetables, and whole grains?: Yes, sometimes Sexual Health: Have you been bothered by sexual problems: No Review of Systems Constitutional: Negative. Respiratory: Negative. Cardiovascular: Negative. Gastrointestinal: Negative. All other systems reviewed and are negative. Objective BP 122/60 Pulse 63 Temp 36 ??C (96.8 ??F) (Temporal) Resp 16 Wt 124 kg (274 lb) BMI 41.67kg/m?? Hearing: No data recorded Vision Screening: Required for Medicare Initial Preventative Physical Exam (IPPE) No data recorded Physical Exam Vitals reviewed. Constitutional: Appearance: Normal appearance. Cardiovascular: Rate and Rhythm: Normal rate and regular rhythm. Heart sounds: Normal heart sounds. Pulmonary: Effort: Pulmonary effort is normal. Breath sounds: Normal breath sounds. Musculoskeletal: General: No swelling. Normal range of motion. Cervical back: Neck supple. Skin: General: Skin is warm. Neurological: General: No focal deficit present. Mental Status: He is alert. Patient presented today for an Subsequent Medicare Wellness Visit with management of chronic condition(s). Assessment & Plan Essential hypertension, benign Atherosclerosis of [place] coronary artery of [place] heart with other form of angina pectoris (CMS/HCC) LOWELL (obstructive sleep apnea) B12 deficiency Orders: cyanocobalamin (VITAMIN B-12) injection 1,000 mcg Vitamin B12; Future -Hypertension is well-controlled. Today 122/60. Currently on metoprolol 100 mg, torsemide 20 mg twice daily. Will continue same regimen. -CAD: Follows regularly with cardiology, he completed cardiac rehab. Complains of intermittent chest pain. His shells inspector is aware of this, he has pending an appointment tomorrow, we will continue aspirin and atorvastatin, metoprolol, nitroglycerin as needed. -LOWELL on CPAP. Well-tolerated. - Recent results of B12 levels are 276. Will start supplement with injections. Will recheck levels in 6 months. Risk Assessments: Body mass index is 41.67 kg/m??. The BMI is above average. The patient received dietary education, feeding regime, and exercise education because they have an above normal BMI. Fall Risk: Have you fallen in the past year? no. Are you worried about falling? yes. Discussed: removal of throw rugs in home, adequate lighting/night lights, pausing with transitional movements, paying attention to surroundings, and clear pathways/stairs Depression Risk Score NEW: 5 Depression plan: Refer to counselor Pain Medication: Patient does not take any opioid medications Advance Care Planning Advance care planning is the process of planning for future medical care in case you are unable to make your own medical decisions. It involves choosing a health care warehouse representative and reviewing future health care directives. The patient Advance Directives: does not have advance directives or surrogate decision maker.. Advance directives reviewed and/or discussed: A total time of 16 minutes or greater was spent on Advance Care Planning today ACP Time: Yes, between 16-29 minutes, total actual time 16 (if applicable add billing code [id number] with modifier 25 or modifier 33 if during a medicare wellness visit) Health Maintenance Due Topic Date Due Hepatitis B Vaccines (3 of 3 - 19+ 3-dose series) 08/18/2015 RSV Immunization Patients 60+ Years Old (1 - Risk 60-74 years 1-dose series) Never done COVID-19 Vaccine (2023- season) 2023 The following vaccine(s) were recommended: Vaccines Recommended: RSV vaccine (Arexvy or Abrysvo) Patient Instructions (the written plan) as discussed and documented in our visit today. Lida Huynh MD [address] Dept: [phone] Dept * Rand Shetty MA - 06/12/2024 1:30 PM EDT B12 injection given left deltoid. See medication/immunization tab. Patient to remain 20 minutes. documented in this encounter Plan of Treatment Upcoming Encounters Date Type Department Care Team (Late st Contact Info) Description 06/20/2024 2:00 PM EDT Clinical Support [address] [phone] 07/03/2024 1:30 PM EDT Office Visit Orthopedic Surgery - [place] [phone] [phone] Aaron Sullivan DPM [address] [phone] 12/14/2024 1:00 PM EDT Office Visit [address] [phone] Lida Emmanuel MD [address] [place] [address] Scheduled Orders Name Type Priority Associated Diagnoses Orde r Schedule Vitamin B12 Lab Routine B12 deficiency Expected: 12/13/2024, Expires: 06/12/2025 documented as of this encounter Visit Diagnoses Diagnosis Essential hypertension, benign- Primary Atherosclerosis of [place] coronary artery of [place] heart with other form of angina pectoris (CMS/HCC) LOWELL (obstructive sleep apnea) Obstructive sleep apnea (adult) (pediatric) B12 deficiency documented in this encounter Administered Medications Active Administered Medications - up to 3 most recent administrations Medication Order MAR Action Action Date Dose Rate Site cyanocobalamin (VITAMIN B-12) injection 1,000 mcg 1,000 mcg, intramuscular, See admin instructions, Starting on Tue06/12/24 at 1359, For 9 doses, 1000 MCG Q WEEK X 4 WEEKS THEN Q MONTHIndications:B12 deficiency Given 06/12/2024 2:13 PM EDT 1,000 mcg Left Deltoid documented in this encounter Additional Health Concerns Assessment Noted Time PHQ-9 Depression Total Score: 5 06/13/19 1:43 PM EDT documented as of this encounter Care Teams Talent Buyer Relationship Specialty Start Date End Date Lida Emmanuel MD [address] [place] [id number] PCP - General 01/14/23 documented as of this encounter
--- OUTSIDE RECORDS SUMMARY | 2024-06-13 17:41 | XMS_ITS | Clinical Summary ---
Author Organization 175 [facility] Address [address] [place] [address] Phone Care Team Providers Care Vp Revenue Cycle Name Role Phone Lida Emmanuel MD Primary [...] 400 g 2 5 05/01/19 26 Active bisacodyL (DULCOLAX) 5 mg EC tablet Take 1 tablet (5 mg total) by mouth 1 (one) time each day if needed for constipation. Do not crush, chew, or split. 30 tablet 2 5 09/11/19 25 Active docusate sodium (COLACE) 100 mg capsule Take 2 capsules (200 mg total) by mouth 2 (two) times a day if needed for constipation. 180 capsule 4 06/05/19 25 Hospital, Clinic, or Other Facility Administered Medication Ordered Dose Route Frequency Start Date End Date Status cyanocobalamin (VITAMIN B-12) injection 1,000 mcgIndications:B12 deficiency 1000 mcg IM See admin instructions 06/12/2024 Active Active Problems Problem Noted Date Diagnosed Date [...] 05/08/2007 Coronary atherosclerosis 01/25/2007 Assessment & Plan (06/12/2024 2:04 PM EDT): Assessment & Plan (04/24/2024 3:18 PM EST): Follows regularly with cardiology, currently on cardiac rehab. Continue aspirin and atorvastatin. Assessment & Plan (03/08/2024 12:41 PM EST): On Atorvastatin, ASA and meds as above. No exacerbation of symptoms. Follows regularly with cardiology. Orders: Basic metabolic panel; Future Pain in limb 01/25/2007 Essential hypertension, benign 12/26/2006 Assessment & Plan (06/12/2024 2:04 PM EDT): Assessment & Plan (04/24/2024 3:18 PM EST): Hypertension is well-controlled. Today 106/66. Currently on metoprolol 100 mg, torsemide 20 mg twice daily. Will continue same regimen. Assessment & Plan (03/08/2024 12:42 PM EST): HTN is well controlled on metoprolol, and torsemide. Will continue same regimen. Orders: Basic metabolic panel; Future Encounters Date Type Department Care Team Description 06/12/2024 1:30 PM EDT Office Visit Adult Medicine [address] [phone] Lida Branch MD Essential hypertension, benign (Primary Dx); Atherosclerosis of [place] coronary artery of [place] heart with other form of angina pectoris (CMS/HCC); LOWELL (obstructive sleep apnea); B12 deficiency 05/01/2024 2:00 PM EST Office Visit Orthopedic Surgery [address] [phone] Aaron Sullivan DPM Pain in both feet (Primary Dx); Arthritis of both feet; Hammertoes of both feet; PAD (peripheral artery disease) (CMS/HCC); Dermatophytosis, nail; Xerosis cutis 04/24/2024 1:30 PM EST Office Visit Adult Medicine [address] [phone] Lida Branch MD Tremor of both hands (Primary Dx); Essential hypertension, benign; Atherosclerosis of [place] coronary artery of [place] heart with other form of angina pectoris (CMS/HCC); Influenza vaccine needed; Encounter for screening involving social determinants of health (SDoH) 04/06/2024 Telephone Adult Medicine [address] [phone] Lida Branch MD Forms/questionnaires ([facility]) 03/15/2024 Telephone Adult Medicine [address] [phone] Lida Branch MD Forms/questionnaires (RM) from Last [...] Date Site/Laterality Comments OTHER SURGICAL HISTORY PROCEDURE: [place] HEMORRHOIDECTOMY INTERNAL RUBBER BAND LIGATIONS KNEE SURGERY [...] (274 lb) 06/12/2024 1:31 PM EDT Height 172.7 cm (5' 7.99 ) 05/01/2024 1:54 PM ES T Body Mass Index 41.67 05/01/2024 1:54 PM EST Plan of Treatment Upcoming Encounters Date Type Department Care Team (Late st Contact Info) Description 06/20/2024 2:00 PM EDT Clinical Support Adult Medicine [address] [phone] 07/03/2024 1:30 PM EDT Office Visit Orthopedic Surgery - [place] [address] [phone] Aaron Sullivan, EARNEST [address] [address] 12/14/2024 1:00 PM EDT Office Visit Adult Medicine [address] [phone] Lida Emmanuel MD [address] [place] [id number] Health Maintenance Due Date Last Done Comments Hepatitis B Vaccines (3 of 3 - 19+ 3-dose series) 08/18/2015 06/19/2015, 02/17/2015 RSV Immunization Patients 60+ Years Old (1 - Risk 60-74 years 1-dose series) 2017 COVID-19 Vaccine ( season) 2023 04/16/2022, 04/06/2021, 08/13/2020, Additional history exists Hypertension/CHF/CAD Annual BMP Blood Test 03/13/2025 03/13/2024, 07/08/2023 Social Influencers of Health Screening 04/24/2025 04/24/2024 Depression Screening 06/12/2025 06/12/2024, 10/26/19 24 Falls Risk Assessment 06/12/2025 06/12/2024, 024 Medicare Annual Wellness Visit 06/12/2025 06/12/2024 Colorectal Cancer Screening: FIT-DNA (Cologuard) 11/02/2026 11/03/2023, [...] AM EST Essential hypertension, benign Atherosclerosis of [place] coronary artery of [place] heart with stable angina pectoris (CMS/HCC) HM [...] K/mcL LAB HEMETOLOGY METHOD 04/24/2024 5:06 PM [facility] RBC 4.60 4.50 - 5.50 M/mcL LAB HEMETOLOGY METHOD 04/24/2024 5:06 PM [facility] Hemoglobin 14.2 13.5 - 17.5 g/dL LAB HEMETOLOGY METHOD 04/24/2024 5:06 PM [facility] Hematocrit 40.5(L) 42.0 - 54.0 % LAB HEMETOLOGY METHOD 04/24/2024 5:06 PM [facility] MCV 88.0 79.0 - 98.0 FL LAB HEMETOLOGY METHOD 04/24/2024 5:06 PM [facility] MCH 30.9 27.0 - 32.0 pcg LAB HEMETOLOGY METHOD 04/24/2024 5:06 PM [facility] MCHC 35.1 32.0 - 37.0 g/dL LAB HEMETOLOGY METHOD 04/24/2024 5:06 PM [facility] RDW 13.9 11.0 - 15.0 % LAB HEMETOLOGY METHOD 04/24/2024 5:06 PM [facility] Platelets 224 130 - 400 K/mcL LAB HEMETOLOGY METHOD 04/24/2024 5:06 PM [facility] MPV 11.2(H) 7.0 - 11.0 FL LAB HEMETOLOGY METHOD 04/24/2024 5:06 PM [facility] NRBC 0.0 <1.0 % LAB HEMETOLOGY METHOD 04/24/2024 5:06 PM [facility] NRBC Absolute 0.00 <0.10 K/mcL LAB HEMETOLOGY METHOD 04/24/2024 5:06 PM [facility] Neutrophils Relative 55.6 % LAB HEMETOLOGY METHOD 04/24/2024 5:06 PM [facility] Lymphocytes Relative 28.4 % LAB HEMETOLOGY METHOD 04/24/2024 5:06 PM [facility] Monocytes Relative 11.3 % LAB HEMETOLOGY METHOD 04/24/2024 5:06 PM [facility] Eosinophils Relative 4.0 % LAB HEMETOLOGY METHOD 04/24/2024 5:06 PM [facility] Basophils Relative 0.6 % LAB HEMETOLOGY METHOD 04/24/2024 5:06 PM [facility] Immature Granulocytes Relative 0.1 % LAB HEMETOLOGY METHOD 04/24/2024 5:06 PM [facility] Neutrophils Absolute 3.75 1.50 - 7.00 K/mcL LAB HEMETOLOGY METHOD 04/24/2024 5:06 PM [facility] Lymphocytes Absolute 1.92 1.00 - 5.00 K/mcL LAB HEMETOLOGY METHOD 04/24/2024 5:06 PM EST [facility] Monocytes Absolute 0.76 0.20 - 1.00 K/mcL LAB HEMETOLOGY METHOD 04/24/2024 5:06 PM EST [facility] Eosinophils Absolute 0.27 0.00 - 0.50 K/mcL LAB HEMETOLOGY METHOD 04/24/2024 5:06 PM EST [facility] Basophils Absolute 0.04 0.00 - 0.20 K/mcL LAB HEMETOLOGY METHOD 04/24/2024 5:06 PM EST [facility] Immature Granulocytes Absolute 0.01 0.00 - 0.03 K/mcL LAB HEMETOLOGY METHOD 04/24/2024 5:06 PM EST [facility] Blood Venous blood specimen / Unknown Venipuncture / Unknown 04/24/2024 2:10 PM EST 04/24/2024 2:10 PM EST Lida Emmanuel MD LAB BLOOD ORDERABL ES Final Result Performing Organization Address City/[facility]/ZIP Co de Phone Number [facility] [address] [place] [address], [place] [phone] * Vitamin B12 (04/24/2024 2:10 PM EST) [facility] Vitamin B-12 276 250 - 900 pcg/mL LAB CHEMISTRY METHOD 04/24/2024 5:42 PM EST [facility] Blood Venous blood specimen / Unknown Venipuncture / Unknown 04/24/2024 2:10 PM EST 04/24/2024 2:10 PM EST Lida Emmanuel MD LAB BLOOD ORDERABL ES Final Result [facility] [address] [place] [address], [place] [phone] * (ABNORMAL) Basic metabolic panel (03/13/2024 8:34 AM EST) Sodium 141 133 - 145 mmol/L LAB CHEMISTRY METHOD 03/13/2024 10:02 AM [facility] Potassium 4.7 3.5 - 5.5 mmol/L LAB CHEMISTRY METHOD 03/13/2024 10:02 AM [facility] Chloride 104 96 - 110 mmol/L LAB CHEMISTRY METHOD 03/13/2024 10:02 AM [facility] CO2 32 21 - 32 mmol/L LAB CHEMISTRY METHOD 03/13/2024 10:02 AM [facility] Anion Gap 5 3 - 11 LAB CHEMISTRY METHOD 03/13/2024 10:02 AM [facility] Glucose 114(H) 70 - 100 mg/dL LAB CHEMISTRY METHOD 03/13/2024 10:02 AM [facility] BUN 16 5 - 25 mg/dL LAB CHEMISTRY METHOD 03/13/2024 10:02 AM [facility] Creatinine 1.24 0.70 - 1.30 mg/dL LAB CHEMISTRY METHOD 03/13/2024 10:02 AM [facility] eGFR 64 >=60 mL/min/1. 73m2 LAB CHEMISTRY METHOD 03/13/2024 10:02 AM [facility] Comment:Calculation based on the??Chronic Kidney Disease Epidemiology Collaboration (CKD-EPI) equation refit??without adjustment for race. BUN/Creatinine Ratio 12.9 LAB CHEMISTRY METHOD 03/13/2024 10:02 AM [facility] Calcium 9.4 8.5 - 10.5 mg/dL LAB CHEMISTRY METHOD 03/13/2024 10:02 AM [facility] Blood Venous blood specimen / Unknown Venipuncture / Unknown 03/13/2024 8:34 AM EST 03/13/2024 8:34 AM EST us Lida Emmanuel MD LAB BLOOD ORDERABL ES Final Result [facility] [address] [place] [address], * FIT-DNA (Cologuard) (11/03/2023) [facility] Colorectal Cancer Screening: FIT-DNA (Cologuard) abstracted, no interpretation [facility] Provider HEALTH MAINTENANCE Final Result * Falls Risk Assessment (10/26/2023) [facility] Falls Risk Assessment abstracted [facility] HEALTH MAINTENANCE Final Result * Depression Screening (10/26/2023) [facility] Depression Screening abstracted [facility] Provider HEALTH MAINTENANCE Final Result * Hepatitis C Screening (07/12/2023) [facility] Hepatitis C Screening abstracted [facility] Provider [place] HEALTH MAINTENANCE Final Result * (ABNORMAL) Lipid panel (07/08/2023) [facility] LDL/HDL Ratio 3 0 - 4 Triglycerides 178(A) 0 - 150 mg/dL Cholesterol 147 0 - 200 mg/dL HDL 49 >=40 mg/dL LDL Cholesterol 63 0 - 100 mg/dL Blood Venous blood specimen / Unknown Result [facility] Provider LAB BLOOD ORDERABLES Gabby l Result from Last 3 Months or Most Recently Relevant to Health Maintenance Insurance MEDICARE [facility] MEDIC[employer] Care Teams Vp Revenue Cycle Relationship Specialty Start Date End Date Lida Emmanuel MD [address] [place] [id number] PCP - General 01/14/23
== END 2024-06-13 16:03 | disposition home or self-care (01) ==
LOC: HO.HCS 15:03
PROVIDERS: PCP Internal Medicine; Visit Provider Internal Medicine Cardiovascular Disease
DX: Z95.1 Presence of aortocoronary bypass graft (principal); R07.9 Chest pain, unspecified
CPT/HCPCS: 99214

== ENCOUNTER → 2024-06-13 15:02 | Outpatient (BNVA) | payer OTHER, SELFPAY | PROVIDERS: PCP Internal Medicine; Visit Provider Internal Medicine Cardiovascular Disease | DX: R07.9 Chest pain, unspecified (principal); Z95.1 Presence of aortocoronary bypass graft | CPT/HCPCS: 99212 ==

== ENCOUNTER 2024-07-12 12:56 | Outpatient (AMB) | payer OTHER, SELFPAY ==
[2024-07-12 13:16] VITALS: BMI 41.7
--- NOTE | 2024-07-12 13:16 | A.OFFVIS_ITS ---
VS Expanded 07/12/24 13:16 Height 5 ft 8 in Weight 274 lb 7.608 oz BMI 41.7 Intake Visit Reasons: Presence of aortocoronary bypass graft Allergies perflutren Adverse Reaction (Verified 01/12/24 15:17) Back Pain Nutrition Presentation Details: Pt presents for MNT f/u for obesity with CAD Pt reports getting b12 shots for 3 weeks since he was found to have b 12 deficiency by his PCP Reports trying to work on physical activity, walk 30 minutes once a week for the past 2 weeks Typical meal intake - no routine 01-12 eggs/sausage/bread, coffee , juice fruits in smoothies 5-6 pm rice /beans pr 10 pm cheerios with milk BS Monitoring Most Recent Diabetes Results: Cholesterol 142 mg/dL (<200) 02/13/24 HDL Cholesterol 41 mg/dL (>40) 02/13/24 Triglycerides 160 mg/dL (<150) H 02/13/24 Creatinine 0.97 mg/dL (0.5-1.4) 02/13/24 Blood Urea Nitrogen 14 mg/dL (9-16) 02/13/24 Sodium 140 mmol/L (135-145) 02/13/24 Potassium 4.6 mmol/L (3.3-5.1) 02/13/24 Chloride 106 mmol/L (96-108) 02/13/24 Carbon Dioxide 27 mmol/L (22-29) 02/13/24 Calcium 9.4 mg/dL (8.4-10.2) 02/13/24 [facility] Medical History Chest pain On beta marley at home Pre-diabetes HTN (hypertension) CAD (coronary artery disease) Limb swelling Heart disease Dyspnea LOWELL on CPAP Surgical History S/P cardiac catheterization History of right knee surgery (12/23/21) Hx of hemorrhoidectomy Hx of colonoscopy Family History Mother Arrhythmia HTN (hypertension) Father No problems noted. Social History Alcohol intake: never Patient Tobacco Use Status: Never used Tobacco Assessment & Plan Assessment & Plan (1) S/P CABG x 4: Comment: BMI 43.1 on 06/2024), 41.7 (07/27) Code(s): Z95.1 - Presence of aortocoronary bypass graft Category: Surgical Plan: Wt: 125 Kg ( 06/19/24 ), 124 kg (07/27) Est kcal needs as per MSJ: 2400 (40% carb, 30% protein/fat) Est fluid needs as per 25-30 ml/d: 3700 Est prot per day as per 1 g/kg bw: 125 Recommend fiber intake : 8-10 g per day and gradually increase to 25-28 g per day for women and 35-38 g for men or as tolerated Recommend sodium intake per day : less than 2000 mg Educated patient on: ( R = reviewed V = verbalizes understanding N/R = needs review N/A = not applicable * Food sources of carbohydrate, adequate serving sizes and its role in various health conditions: R * Differences between complex carbohydrates a simple carbohydrates, role of fi ronald in diet: R * Lean protein sources of foods: R V NR * Differences between types of fats and role in diet (mono on saturated fat fatty acids, saturated fatty acids, trans fats): R basic low fat * Food sources of sodium in salt and healthy modifications for heart health in kidney health: R V R/V * Vitamins and minerals: R V N/R * Healthy plate method concept: R * Physical activity: Benefits a precaution: R V N/R * Dietary prevention of Hyperglycemia: R Patient Instructions: Continue working on reducing on sugars/highly processed foods Replace saturated fat with unsaturated fats (have fish at least twice a week, have unsalted nuts ) Keep hydrated, choose water, low sugar beverages Coding Level of Care Code Nutr Indiv Subseq (50967) Diagnoses S/P CABG x 4 Z95.1 Time Spent (min) 30
--- OUTSIDE RECORDS SUMMARY | 2024-07-12 15:34 | XMS_ITS | Clinical Summary ---
Author Organization 175 [facility] Address [address] [place] [address] Phone Care Team Providers Care Possum Trapper Name Role Phone Lida Emmanuel MD Primary [...] 30 tablet 2 5 09/11/19 25 Active Hospital, Clinic, or Other Facility Administered Medication [...] Encounters Date Type Department Care Team Description 07/04/2024 3:30 PM EDT Clinical Support [address] [phone] B12 deficiency (Primary Dx) 06/27/2024 3:00 PM EDT Clinical Support [address] [phone] B12 deficiency (Primary Dx) 06/20/2024 2:00 PM EDT Clinical Support [address] [phone] B12 deficiency (Primary Dx) 06/12/2024 1:30 PM EDT Office Visit Adult [address] [phone] Lida Stoddard MD Essential hypertension, benign (Primary Dx); Atherosclerosis of [place] coronary artery of [place] heart with other form of angina pectoris (CMS/HCC V24); LOWELL (obstructive sleep apnea); B12 deficiency 05/01/2024 2:00 PM EST Office Visit Orthopedic Surgery - [address] [phone] Aaron Sullivan DPM Pain in both feet (Primary Dx); Arthritis of both feet; Hammertoes of both feet; PAD (peripheral artery disease) (CMS/HCC V24); Dermatophytosis, nail; Xerosis cutis 04/24/2024 1:30 PM EST Office Visit Adult Medicine [address] [phone] Lida Stoddard MD Tremor of both hands (Primary Dx); Essential hypertension, benign; Atherosclerosis of [place] coronary artery of [place] heart with other form of angina pectoris (CMS/HCC V24); Influenza vaccine needed; Encounter for screening involving social determinants of health (SDoH) from Last 3 Months Immunizations Name Administration [...] Date Site/Laterality Comments OTHER SURGICAL HISTORY PROCEDURE: [place] HEMORRHOIDECTOMY INTERNAL RUBBER BAND LIGATIONS KNEE SURGERY [...] ed Within the last 3 months, dinorah w many times did you visit the [...] Care Team (Late st Contact Info) Description 08/01/2024 3:45 PM EDT Clinical Support Adult Medicine [address] [phone] 09/03/2024 2:15 PM EDT Office Visit Orthopedic Surgery - [place] [address] [phone] Aaron Sullivan, DPM [address] [address] 12/14/2024 1:00 PM EDT Office Visit Adult [address] [phone] Lida Emmanuel MD [address] [place] [phone] Health Maintenance Due Date Last Done Comments Hepatitis B Vaccines (3 of 3 - 19+ 3-dose series) 08/18/2015 06/19/2015, 02/17/2015 RSV Immunization Adult Patients (1 - Risk 60-74 years 1-dose series) 2017 COVID-19 Vaccine ( season) 2023 04/16/2022, 04/06/2021, 08/13/2020, Additional history exists Hypertension/CHF/CAD Annual BMP Blood Test 03/13/2025 03/13/2024, 07/08/2023 Social Influencers of Health Screening 04/24/2025 04/24/2024 Depression Screening 06/12/2025 06/12/2024, 07/24/20 24 Falls Risk Assessment 06/12/2025 06/12/2024, 024 [...] age to complete this topic Meningococcal B Vaccine Aged Out No l onger eligible based on patient's age to complete [...] AM EST Essential hypertension, benign Atherosclerosis of [place] coronary artery of [place] heart with stable angina pectoris (CMS/HCC V24) FIT-DNA Routine 11/03/2023 DEPRESSION SCREENING Routine 10/26/2023 FALLS RISK ASSESSMENT Routine 10/26/2023 HEPATITIS C SCREENING Routine 07/12/2023 LIPID PANEL Routine 07/08/2023 from Last 3 Months or Most Recently Relevant to Health Maintenance Results * (ABNORMAL) CBC auto differential (04/24/2024 2:10 PM EST) [facility] WBC 6.8 4.8 - 10.8 K/mcL LAB HEMETOLOGY METHOD 04/24/2024 5:06 PM [facility] RBC 4.60 4.50 - 5.50 M/mcL LAB HEMETOLOGY METHOD 04/24/2024 5:06 PM [facility] Hemoglobin 14.2 13.5 - 17.5 g/dL LAB HEMETOLOGY METHOD 04/24/2024 5:06 PM [facility] Hematocrit 40.5(L) 42.0 - 54.0 % LAB HEMETOLOGY METHOD 04/24/2024 5:06 PM [facility] MCV 88.0 79.0 - 98.0 FL LAB HEMETOLOGY METHOD 04/24/2024 5:06 PM [facility] MCH 30.9 27.0 - 32.0 pcg LAB HEMETOLOGY METHOD 04/24/2024 5:06 PM [facility] MCHC 35.1 32.0 - 37.0 g/dL LAB HEMETOLOGY METHOD 04/24/2024 5:06 PM [facility] RDW 13.9 11.0 - 15.0 % LAB HEMETOLOGY METHOD 04/24/2024 5:06 PM [facility] Platelets 224 130 - 400 K/mcL LAB HEMETOLOGY METHOD 04/24/2024 5:06 PM [facility] MPV 11.2(H) 7.0 - 11.0 FL LAB HEMETOLOGY METHOD 04/24/2024 5:06 PM [facility] NRBC 0.0 <1.0 % LAB HEMETOLOGY METHOD 04/24/2024 5:06 PM [facility] NRBC Absolute 0.00 <0.10 K/mcL LAB HEMETOLOGY METHOD 04/24/2024 5:06 PM [facility] Neutrophils Relative 55.6 % LAB HEMETOLOGY METHOD 04/24/2024 5:06 PM [facility] Lymphocytes Relative 28.4 % LAB HEMETOLOGY METHOD 04/24/2024 5:06 PM [facility] Monocytes Relative 11.3 % LAB HEMETOLOGY METHOD 04/24/2024 5:06 PM [facility] Eosinophils Relative 4.0 % LAB HEMETOLOGY METHOD 04/24/2024 5:06 PM [facility] Basophils Relative 0.6 % LAB HEMETOLOGY METHOD 04/24/2024 5:06 PM [facility] Immature Granulocytes Relative 0.1 % LAB HEMETOLOGY METHOD 04/24/2024 5:06 PM [facility] Neutrophils Absolute 3.75 1.50 - 7.00 K/mcL LAB HEMETOLOGY METHOD 04/24/2024 5:06 PM [facility] Lymphocytes Absolute 1.92 1.00 - 5.00 K/mcL LAB HEMETOLOGY METHOD 04/24/2024 5:06 PM [facility] Monocytes Absolute 0.76 0.20 - 1.00 K/mcL LAB HEMETOLOGY METHOD 04/24/2024 5:06 PM EST [facility] Eosinophils Absolute 0.27 0.00 - 0.50 K/[facility] LAB HEMETOLOGY METHOD 04/24/2024 5:06 PM EST [facility] Basophils Absolute 0.04 0.00 - 0.20 K/[facility] LAB HEMETOLOGY METHOD 04/24/2024 5:06 PM EST [facility] Immature Granulocytes Absolute 0.01 0.00 - 0.03 K/[facility] LAB HEMETOLOGY METHOD 04/24/2024 5:06 PM EST [facility] Blood Venous blood specimen / Unknown Venipuncture / Unknown 04/24/2024 2:10 PM EST 04/24/2024 2:10 PM EST Lida Emmanuel MD LAB BLOOD ORDERABL ES Final Result Performing Organization Address City/[facility]/ZIP Co de Phone Number [facility] [address] [place] [address], [place] [phone] * Vitamin B12 (04/24/2024 2:10 PM EST) [facility] Vitamin B-12 276 250 - 900 pcg/mL LAB CHEMISTRY METHOD 04/24/2024 5:42 PM EST [facility] Blood Venous blood specimen / Unknown Venipuncture / Unknown 04/24/2024 2:10 PM EST 04/24/2024 2:10 PM EST Lida Emmanuel MD LAB BLOOD ORDERABL ES Final Result [facility] [address] [place] [address], [place] [phone] * (ABNORMAL) Basic metabolic panel (03/13/2024 8:34 AM EST) [facility] Sodium 141 133 - 145 mmol/L LAB CHEMISTRY METHOD 03/13/2024 10:02 AM [facility] Potassium 4.7 3.5 - 5.5 mmol/L LAB CHEMISTRY METHOD 03/13/2024 10:02 AM [facility] Chloride 104 96 - 110 mmol/L LAB CHEMISTRY METHOD 03/13/2024 10:02 AM [facility] CO2 32 21 - 32 mmol/L LAB CHEMISTRY METHOD 03/13/2024 10:02 AM [facility] Anion Gap 5 3 - 11 LAB CHEMISTRY METHOD 03/13/2024 10:02 AM [facility] Glucose 114(H) 70 - 100 mg/dL LAB CHEMISTRY METHOD 03/13/2024 10:02 AM [facility] BUN 16 5 - 25 mg/dL LAB CHEMISTRY METHOD 03/13/2024 10:02 AM [facility] Creatinine 1.24 0.70 - 1.30 mg/dL LAB CHEMISTRY METHOD 03/13/2024 10:02 AM [facility] eGFR 64 >=60 mL/min/1. 73m2 LAB CHEMISTRY METHOD 03/13/2024 10:02 AM [facility] Comment:Calculation based on the??Chronic Kidney Disease Epidemiology Collaboration (CKD-EPI) equation refit??without adjustment for race. BUN/Creatinine Ratio 12.9 LAB CHEMISTRY METHOD 03/13/2024 10:02 AM [facility] Calcium 9.4 8.5 - 10.5 mg/dL LAB CHEMISTRY METHOD 03/13/2024 10:02 AM [facility] Blood Venous blood specimen / Unknown Venipuncture / Unknown 03/13/2024 8:34 AM EST 03/13/2024 8:34 AM EST us Lida Emmanuel MD LAB BLOOD ORDERABL ES Final Result [facility] [address] [place] [address], [place] [phone] * FIT-DNA (Cologuard) (11/03/2023) [facility] Colorectal Cancer Screening: FIT-DNA (Cologuard) abstracted, no interpretation [facility] Provider [place] HEALTH MAINTENANCE Final Result * Falls Risk Assessment (10/26/2023) [facility] Falls Risk Assessment abstracted [facility] Provider [place] HEALTH MAINTENANCE Final Result * Depression Screening (10/26/2023) [facility] Depression Screening abstracted [facility] Provider [place] HEALTH MAINTENANCE Final Result * Hepatitis C Screening (07/12/2023) [facility] Hepatitis C Screening abstracted [facility] Provider [place] HEALTH MAINTENANCE Final Result * (ABNORMAL) Lipid panel (07/08/2023) [facility] LDL/HDL Ratio 3 0 - 4 Triglycerides 178(A) 0 - 150 mg/dL Cholesterol 147 0 - 200 mg/dL HDL 49 >=40 mg/dL LDL Cholesterol 63 0 - 100 mg/dL Blood Venous blood specimen / Unknown Result [facility] Provider LAB BLOOD ORDERABLES Gabby l Result from Last 3 Months or Most Recently Relevant to Health Maintenance Insurance MEDICARE [facility] MEDICARE [employer]AGE Care Teams Possum Trapper Relationship Specialty Start Date End Date Lida Emmanuel MD [address] [place] [id number] PCP - General 01/14/23
== END 2024-07-12 13:59 | disposition home or self-care (01) ==
LOC: HO.ENCR 12:57
PROVIDERS: PCP Internal Medicine; Visit Provider Dietitian, Registered
DX: Z95.1 Presence of aortocoronary bypass graft (principal)

== ENCOUNTER → 2024-07-12 12:56 | Outpatient (BNVA) | payer OTHER, SELFPAY | PROVIDERS: PCP Internal Medicine; Visit Provider Dietitian, Registered | DX: E66.9 Obesity, unspecified (principal); R73.03 Prediabetes; Z95.1 Presence of aortocoronary bypass graft; Z68.41 Body mass index [BMI] 40.0-44.9, adult | CPT/HCPCS: 97803 ==

== ENCOUNTER 2024-09-24 13:15 | Outpatient (AMB) | payer OTHER, SELFPAY ==
[2024-09-24 13:36] VITALS: BMI 41.0
--- NOTE | 2024-09-24 13:36 | A.OFFVIS_ITS ---
VS Expanded 09/24/24 13:36 Height 5 ft 8 in Weight 269 lb 13.533 oz BMI 41.0 Intake Visit Reasons: obesity with aortocoronary bypass graft Allergies perflutren Adverse Reaction (Verified 01/12/24 15:17) Back Pain Nutrition Presentation Details: Pt presents for MNT f/u for atherosclerotic CVD and hx of CABGx4 Pt reports resuming Exercising 3 times a week stationary bike/rowing 40-45 minutes as able Working on reducing sugars (beverages/added to foods/ pastries ), added sugars in general Including fish - not yet PFSH Medical History Chest pain On beta marley at home Pre-diabetes HTN (hypertension) CAD (coronary artery disease) Limb swelling Heart disease Dyspnea LOWELL on CPAP Surgical History S/P cardiac catheterization History of right knee surgery (12/23/21) Hx of hemorrhoidectomy Hx of colonoscopy Family History Mother Arrhythmia HTN (hypertension) Father No problems noted. Social History Alcohol intake: never Patient Tobacco Use Status: Never used Tobacco Assessment & Plan Assessment & Plan (1) S/P CABG x 4: Comment: BMI 43.1 on 06/2024), 41.7 (07/27), 41 (09/26) Code(s): Z95.1 - Presence of aortocoronary bypass graft Category: Surgical Plan: Wt: 125 Kg ( 06/19/24 ), 124 kg (07/27), 123 kg (09/26) Est kcal needs as per MSJ: 2400 (40% carb, 30% protein/fat) Est fluid needs as per 25-30 ml/d: 3700 Est prot per day as per 1 g/kg bw: 120 Recommend fiber intake : 8-10 g per day and gradually increase to 25-28 g per day for women and 35-38 g for men or as tolerated Recommend sodium intake per day : less than 2000 mg Educated patient on: ( R = reviewed V = verbalizes understanding N/R = needs review N/A = not applicable * Food sources of carbohydrate, adequate serving sizes and its role in various health conditions: R * Differences between complex carbohydrates a simple carbohydrates, role of fiber in diet: R * Lean protein sources of foods: R * Differences between types of fats and role in diet (mono on saturated fat fatty acids, saturated fatty acids, trans fats): R basic low fat * Food sources of sodium in salt and healthy modifications for heart health in kidney health: R * Vitamins and minerals: R V N/R * Healthy plate method concept: R * Physical activity: Benefits a precaution: R V * Dietary prevention of Hyperglycemia: R Patient Instructions: Have baked fish twice a week - see list of options/recipes Have a yogurt with fruit as bedtime snack Coding Level of Care Code Nutr Indiv Subseq (59917) Diagnoses S/P CABG x 4 Z95.1 Time Spent (min) 30
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
== END 2024-09-24 14:22 | disposition home or self-care (01) ==
LOC: HO.ENCR 13:16
PROVIDERS: PCP Internal Medicine; Visit Provider Dietitian, Registered
DX: Z95.1 Presence of aortocoronary bypass graft (principal)

== ENCOUNTER → 2024-09-24 13:15 | Outpatient (BNVA) | payer OTHER, SELFPAY | PROVIDERS: PCP Internal Medicine; Visit Provider Dietitian, Registered | DX: E66.9 Obesity, unspecified (principal); I25.10 Atherosclerotic heart disease of native coronary artery without angina pectoris; I10 Essential (primary) hypertension; Z68.41 Body mass index [BMI] 40.0-44.9, adult; Z95.1 Presence of aortocoronary bypass graft; Z71.3 Dietary counseling and surveillance | CPT/HCPCS: 97803 ==

== ENCOUNTER 2024-10-16 13:01 | Outpatient (AMB) | payer OTHER, SELFPAY ==
[2024-10-16 13:55] VITALS: BP 128/74; PULSE 58; BMI 42.0
--- NOTE | 2024-10-16 13:55 | A.OFFVIS_ITS ---
Vital Signs 10/16/24 13:55 Height 5 ft 8 in Weight 276 lb 0.3 oz BMI 42.0 BP 128/74 Blood Pressure Location Lt brachial Position Sitting Pulse 58 Pulse Source Pulse Oximeter Intake Visit Reasons: 4 mth f/up km Intake Note: 4 mth f/up-km Net Developer With [employer] Required: Yes Net Developer [employer] Language: Classified Advertising Supervisor Name: [email or web address] Accompanied by: Spouse Allergies perflutren Adverse Reaction (Verified 01/12/24 15:17) Back Pain Medication List - Last Reconciled 10/16/24 by Jay Bonilla NP aspirin 1 tab PO DAILY atorvastatin 80 mg PO DAILY azelastine 2 sprays intranasal BID 30 days blood pressure monitor (Blood Pressure Kit) As directed compr.stocking,knee,long,large [id number] CPAP (CPAP Machine/Device) As directed docusate sodium (Stool Softener) 200 mg PO DAILY fluticasone propionate 50 mcg/actuation 2 sprays intranasal DAILY gabapentin 100 mg PO BID ibuprofen 400 mg PO Q6H PRN metoprolol tartrate 100 mg PO BID 90 days morphine 15 mg PO TID PRN terbinafine HCl 250 mg PO DAILY torsemide 20 mg PO BID HPI Comments Details: This is a 68-year-old male patient coming in for a follow-up visit, accompanied by his . A filter tip catcher was used throughout the visit. Patient with a history of hypertension, sleep apnea, and coronary artery disease status post CABG 4 vessel in December 2023, chronic left-sided chest discomfort since surgery. Today, patient continues to report the left-sided chest pain with palpation otherwise is denying any exertional chest pain, shortness of breath, palpitations, dizziness, orthopnea, PND, leg edema, presyncope, or syncope. Patient is reporting compliance with all his medications. [facility] Medical History Chest pain On beta marley at home Pre-diabetes HTN (hypertension) CAD (coronary artery disease) Limb swelling Heart disease Dyspnea LOWELL on CPAP Surgical History S/P cardiac catheterization History of right knee surgery (12/23/21) Hx of hemorrhoidectomy Hx of colonoscopy Family History Mother Arrhythmia HTN (hypertension) Father No problems noted. Social History Alcohol intake: never Patient Tobacco Use Status: Never used Tobacco Review of Systems Const Denies chills, Denies fatigue, Denies fever(s), Denies frequent falls, Denies weakness, Denies weight gain and Denies weight loss ENT Denies dizziness Card Denies chest pain, Denies leg edema, Denies lightheadedness, Denies palpitations, Denies dyspnea and Denies dyspnea on exertion Resp Denies cough, Denies dyspnea and Denies dyspnea on exertion GI Denies hematochezia Musc Denies abnormal gait, Denies muscle weakness, Denies numbness, Denies radiating pain into limb and Denies tingling Neuro Denies abnormal gait, Denies dizziness, Denies frequent falls, Denies numbness, Denies tingling and Denies weakness Endo Denies fatigue and Denies palpitations Physical Exam Vital Signs: Last Vital Signs Pulse 58 10/16/24 13:55 BP 128/74 10/16/24 13:55 BMI result Body Mass Index 42.0 Const General: cooperative, healthy appearing, comfortable and no acute distress Orientation/consciousness: patient oriented x3 HEENT Head: Yes normal to inspection Neck Neck: Yes normal visual inspection, Yes trachea midline and Yes supple Chest Chest palpation & inspection: normal inspection of the chest Resp Effort & Inspection: normal respiratory effort Auscultation: clear to auscultation bilaterally, no crackles, no rales, no rhonchi and no wheezes Cardio Jugular venous distension: no JVD Palpation: normal PMI Rate: regular rate Rhythm: regular rhythm Heart sounds: S1 normal heart sound present, S2 normal heart sound present, no click, no gallops, no murmurs and no rubs Peripheral pulses: Peripheral pulses 2+ throughout GI Inspection: Yes normal to inspection Palpation (GI): Soft to palpation Auscultation: normal bowel sounds Skin General skin exam: no rashes or lesions noted Neuro General: patient oriented x3 Extrem General: Yes normal to inspection, No no pedal edema and No calf tenderness Psych Appearance: grossly normal Mental Status: mental status grossly normal Speech and movement: Normal speech and movement present Assessment & Plan Assessment & Plan (1) Atherosclerotic cardiovascular disease: Code(s): I25.10 - Atherosclerotic heart disease of [place] coronary artery without angina pectoris Category: Medical Plan: Cardiac catheterization with Dr. Carrera 08/30/2023 showed 100% stenosis in the proximal LAD, SURGICAL TECHNOLOGY INSTRUCTOR. 75% in the 1st diagonal and 80% in the mid LAD. 75% stenosis in the proximal left circumflex, and 100% in the proximal RCA, SURGICAL TECHNOLOGY INSTRUCTOR. Status post CABG 4 vessel on 12/28/2023. Continue lifelong aspirin therapy. No reported signs of bleeding. Continue high-dose statin therapy with an LDL goal less than 70. Clinically stable and euvolemic. Continue metoprolol and torsemide therapy. We will get labs to check kidney function and electrolytes. We can plan to slowly reduce torsemide. (2) S/P CABG x 4: Comment: BMI 43.1 on 06/2024), 41.7 (07/27), 41 (09/26) Code(s): Z95.1 - Presence of aortocoronary bypass graft Category: Surgical Plan: As above. (3) Chest pain: Code(s): R07.9 - Chest pain, unspecified Category: Medical Plan: Chronic left-sided chest pain with palpation and nonexertional since his surgery. Patient has not been using any [id number] pain medications to help with this. Advised topical NSAIDs such as diclofenac and using p.r.n. Tylenol, as well as patches. Advised avoiding ibuprofen. (4) Essential hypertension: Code(s): I10 - Essential (primary) hypertension Category: Medical Plan: Blood pressure today is within normal limits. Continue current regimen. Advised monitoring blood pressures at home with a goal less than 130/80. (5) LOWELL on CPAP: Code(s): G47.33 - Obstructive sleep apnea (adult) (pediatric); Z99.89 - Dependence on other enabling machines and devices Category: Medical Plan: Continue CPAP therapy. Advised heart healthy diet, regular exercise, losing weight, med compliance, and management of vascular risk factors. Follow up in 6 months. In the interim, patient will call the office with any concerns or change in symptoms. Dental clearance was provided to the patient at this visit- will be scanned in the system. This note was generated using voice recognition software. While every effort has been made to ensure accuracy and proper workforce planning analyst, there may be occasional errors that could affect the content or meaning of the described symptoms. Orders: Orders Basic Metabolic Panel Today I10 - Essential (primary) hypertension Coding Level of Care Code Est Pt Level 4 (86456) Complex EM visit Add On G2211 Diagnoses Atherosclerotic cardiovascular disease I25.10 S/P CABG x 4 Z95.1 Chest pain R07.9 Essential hypertension I10 LOWELL on CPAP G47.33; Z99.89 Time Spent (min) 32 Comment Time spent in reviewing the chart, test results, assessment, counseling and documentation.
--- OUTSIDE RECORDS SUMMARY | 2024-10-16 14:20 | XMS_ITS | Clinical Summary ---
Author Organization [address] [facility] Address [address] [place] [address] Phone Care Team Providers Care Security Orderly Name Role Phone Lida Emmanuel MD Primary Care Prov ider Allergies No known active allergies Medications nitroglycerin (NITROSTAT) 0.4 mg SL tablet take one tablet under the tongue every five minutes for chest pain, may repeat times 2. Call 911 if 3rd tablet needed 04/01/20 09 Active aspirin 81 mg EC tablet 1 TABLET DAILY 01/04/20 07 Active torsemide (DEMADEX) 20 mg tablet Take 1 tablet (20 mg total) by mouth 2 (two) times a day. 02/14/20 24 Active terbinafine (LamISIL) 250 mg tablet Take 1 tablet (250 mg total) by mouth 1 (one) time each day. 12/02/19 24 Active azelastine (ASTELIN) 137 mcg (0.1 %) nasal spray Administer 2 sprays into each nostril 2 (two) times a day. 03/20/20 24 Active fluticasone propionate (FLONASE) 50 mcg/actuation nasal spray Administer 2 sprays into each nostril 1 (one) time each day. 03/12/20 24 Active atorvastatin (LIPITOR) 80 mg tablet Take 1 tablet (80 mg total) by mouth 1 (one) time each day. 90 each 3 04/24/19 25 026 Active metoprolol succinate (TOPROL-XL) 100 mg 24 hr tablet Take 1 tablet (100 mg total) by mouth 1 (one) time each day. 90 each 3 04/24/19 25 026 Active ammonium lactate (AmLactin) 12 % lotion Apply topically if needed for dry skin. 400 g 2 05/01/19 25 026 Active gabapentin (NEURONTIN) 100 mg capsule TAKE 1 CAPSULE BY MOUTH THREE TIMES DAILY 90 capsule 1 09/25/19 25 Active gabapentin (NEURONTIN) 100 mg capsule Take 1 capsule (100 mg total) by mouth 3 (three) times a day. 90 capsule 1 03/06/20 24 025 Discontinued Hospital, Clinic, or Other Facility Administered Medication [...] Encounters Date Type Department Care Team Description 10/03/2024 3:30 PM EDT Clinical Support [address] [phone] B12 deficiency (Primary Dx) 09/17/[address] [phone] Marlys li, Lida Salcedo MD Forms/questionnaires (Handicap Placard) 09/03/2024 2:15 PM EDT Office Visit Orthopedic Surgery [address] [phone] Aaron Sullivan, DPManinder Pain in both feet (Primary Dx); Arthritis of both feet; Hammertoes of both feet; PAD (peripheral artery disease) ([facility] V24); Dermatophytosis, nail 08/29/2024 3:00 PM EDT Clinical Support [address] [phone] B12 deficiency (Primary Dx) 08/01/2024 3:45 PM EDT Clinical Support [address] [phone] B12 deficiency (Primary Dx) from Last 3 Months Immunizations Name Administration [...] Date Site/Laterality Comments OTHER SURGICAL HISTORY PROCEDURE: [place] HEMORRHOIDECTOMY INTERNAL RUBBER BAND LIGATIONS KNEE SURGERY [...] 63 06/12/2024 1:31 PM EDT Temperature 36 C (96.8 F) 06/12/2024 1:31 PM EDT Respiratory Rate 16 06/12/2024 1:31 PM EDT Oxygen Saturation - - Inhaled Oxygen Concentration - - Weight 124 kg (274 lb) 09/03/2024 2:29 PM EDT Height 172.7 cm (5' 7.99 ) 09/03/2024 2:29 PM ED T Body Mass Index 41.67 09/03/2024 2:29 PM EDT Plan of Treatment Upcoming Encounters Date Type Department Care Team (Late st Contact Info) Description 10/31/2024 3:00 PM EDT Clinical Support Adult Medicine [address] [phone] 11/05/2024 1:30 PM EDT Office Visit Orthopedic Surgery - [place] [address] [place] [phone] Aaron Sullivan, DPM [address] [facility] [address] [place] [address] 11/28/2024 3:00 PM EDT Clinical Support [address] [phone] 12/14/2024 1:00 PM EDT Office Visit [address] [phone] Lida Emmanuel MD [address] [place] [address] [phone] Health Maintenance Due Date Last Done Comments Hepatitis B Vaccines (3 of 3 - 19+ 3-dose series) 08/18/2015 06/19/2015, 02/17/2015 RSV Immunization Adult Patients (1 - Risk 60-74 years 1-dose series) 2017 COVID-19 Vaccine ( season) 2023 04/16/2022, 04/06/2021, 08/13/2020, Additional history exists Influenza Vaccine (#1) 2024 , 03/26/2023, 12/04/2022, Additional history exists Hypertension/CHF/CAD Annual BMP Blood Test 03/13/2025 03/13/2024, 07/08/2023 Social Influencers of Health Screening 04/24/2025 04/24/2024 Depression Screening 06/12/2025 06/12/2024, 10/26/19 Falls Risk Assessment 06/12/2025 06/12/2024, 024 Medicare [...] 12/04/2022, 03/21/2013 Hepatitis C Screening Completed 07/12/2023 HIB Vaccines Aged Out No longer eligi [...] Procedure Name Priority Date/Time Associated Diagnosis Comments BASIC METABOLIC PANEL Routine 03/13/2024 8:34 AM EST Essential hypertension, benign Atherosclerosis of [place] coronary artery of [place] heart with stable angina pectoris ([facility] V24) FIT-DNA Routine 11/03/2023 DEPRESSION SCREENING Routine 10/26/2023 FALLS RISK ASSESSMENT Routine 10/26/2023 HEPATITIS C SCREENING Routine 07/12/2023 LIPID PANEL Routine 07/08/2023 from Last 3 Months or Most Recently Relevant to Health Maintenance Results * (ABNORMAL) Basic metabolic panel (03/13/2024 8:34 AM EST) [facility] Signature Sodium 141 133 - 145 mmol/L LAB CHEMISTRY METHOD 03/13/2024 10:02 AM [facility] Potassium 4.7 3.5 - 5.5 mmol/L LAB CHEMISTRY METHOD 03/13/2024 10:02 AM [facility] Chloride 104 96 - 110 mmol/L LAB CHEMISTRY METHOD 03/13/2024 10:02 AM [facility] CO2 32 21 - 32 mmol/L LAB CHEMISTRY METHOD 03/13/2024 10:02 AM [facility] Anion Gap 5 3 - 11 LAB CHEMISTRY METHOD 03/13/2024 10:02 AM [facility] Glucose 114(H) 70 - 100 mg/dL LAB CHEMISTRY METHOD 03/13/2024 10:02 AM [facility] BUN 16 5 - 25 mg/dL LAB CHEMISTRY METHOD 03/13/2024 10:02 AM [facility] Creatinine 1.24 0.70 - 1.30 mg/dL LAB CHEMISTRY METHOD 03/13/2024 10:02 AM [facility] eGFR 64 >=60 mL/min/1. 73m2 LAB CHEMISTRY METHOD 03/13/2024 10:02 AM [facility] Comment:Calculation based on the Chronic Kidney Disease Epidemiology Collaboration (CKD-EPI) equation refit without adjustment for race. BUN/Creatinine Ratio 12.9 LAB CHEMISTRY METHOD 03/13/2024 10:02 AM [facility] Calcium 9.4 8.5 - 10.5 mg/dL LAB CHEMISTRY METHOD 03/13/2024 10:02 AM [facility] Blood Venous blood specimen / Unknown Venipuncture / Unknown 03/13/2024 8:34 AM EST 03/13/2024 8:34 AM EST us Lida Emmanuel MD LAB BLOOD ORDERABL ES Final Result [facility] [address] [place] [address], * FIT-DNA (Cologuard) (11/03/2023) Pathologist [facility] Colorectal Cancer Screening: FIT-DNA (Cologuard) abstracted, no interpretation [facility] Provider HEALTH MAINTENANCE Final Result * Falls Risk Assessment (10/26/2023) [facility] Falls Risk Assessment abstracted [facility] HEALTH MAINTENANCE Final Result * Depression Screening (10/26/2023) [facility] Depression Screening abstracted [facility] HEALTH MAINTENANCE Final Result * Hepatitis C Screening (07/12/2023) [facility] Hepatitis C Screening abstracted [facility] HEALTH MAINTENANCE Final Result * (ABNORMAL) Lipid panel (07/08/2023) [facility] LDL/HDL Ratio 3 0 - 4 Triglycerides 178(A) 0 - 150 mg/dL Cholesterol 147 0 - 200 mg/dL HDL 49 >=40 mg/dL LDL Cholesterol 63 0 - 100 mg/dL Blood Venous blood specimen / Unknown Result [facility] LAB BLOOD ORDERABLES Gabby l Result from Last 3 Months or Most Recently Relevant to Health Maintenance Insurance MEDICARE [facility] [employer]IC[employer] Care Teams Security Orderly Relationship Specialty Start Date End Date Lida Emmanuel MD [address] [place] [id number] PCP - General 01/14/23
== END 2024-10-16 14:21 | disposition home or self-care (01) ==
LOC: HO.HCS 13:02
PROVIDERS: PCP Internal Medicine
DX: I25.10 Atherosclerotic heart disease of native coronary artery without angina pectoris (principal); Z95.1 Presence of aortocoronary bypass graft; R07.9 Chest pain, unspecified; I10 Essential (primary) hypertension; G47.33 Obstructive sleep apnea (adult) (pediatric); Z99.89 Dependence on other enabling machines and devices
CPT/HCPCS: 99214; G2211

== ENCOUNTER → 2024-10-16 13:01 | Outpatient (BNVA) | payer OTHER, SELFPAY | PROVIDERS: PCP Internal Medicine | DX: I25.10 Atherosclerotic heart disease of native coronary artery without angina pectoris (principal); Z95.1 Presence of aortocoronary bypass graft; R07.9 Chest pain, unspecified; I10 Essential (primary) hypertension; G47.33 Obstructive sleep apnea (adult) (pediatric); Z99.89 Dependence on other enabling machines and devices | CPT/HCPCS: 99212 ==

== ENCOUNTER 2024-10-22 07:50 | Outpatient (REF) | payer OTHER, SELFPAY ==
--- OUTSIDE RECORDS SUMMARY | 2024-10-22 07:54 | XMS_ITS | Clinical Summary ---
Author Organization 175 [facility] Address [address] [place] [address] Phone Care Team Providers Care Briar Wood Sorter Name Role Phone Lida Emmanuel MD Primary [...] Description 10/03/2024 3:30 PM EDT Clinical Support [address] [phone] B12 deficiency (Primary Dx) 09/17/[address] [phone] Marlys li, Lida Salcedo MD Forms/questionnaires (Handicap Placard) 09/03/2024 2:15 PM EDT Office Visit Orthopedic Surgery [address] [phone] Aaron Sullivan, DPManinder Pain in both feet (Primary Dx); Arthritis of both feet; Hammertoes of both feet; PAD (peripheral artery disease) ([facility] V24); Dermatophytosis, nail 08/29/2024 3:00 PM EDT Clinical Support [address] [phone] B12 deficiency (Primary Dx) 08/01/2024 3:45 PM EDT Clinical Support [address] [phone] B12 deficiency (Primary Dx) from Last 3 [...] Date Site/Laterality Comments OTHER SURGICAL HISTORY PROCEDURE: VA HEMORRHOIDECTOMY INTERNAL RUBBER BAND LIGATIONS KNEE SURGERY [...] 3:00 PM EDT Clinical Support Adult Medicine [address] [phone] 11/05/2024 1:30 PM EDT Office Visit Orthopedic Surgery - [place] [address] [place] [phone] Aaron Sullivan, DPM 175 [facility] [address] [place] [address] 11/28/2024 3:00 PM EDT Clinical Support [address] [phone] 12/14/2024 1:00 PM EDT Office Visit [address] [phone] Lida Emmanuel MD [address] [place] [address] [phone] Health Maintenance Due Date Last Done Comments [...] Social Influencers of Health Screening 04/24/2025 04/24/2024 Falls Risk Assessment 06/12/2025 06/12/2024, 024 Medicare [...] 12/04/2022, 03/21/2013 Hepatitis C Screening Completed 07/12/2023 Depression Screening Completed 06/12/2024, 10/26/19 24 HIB Vaccines Aged Out No longer eligi [...] AM EST Essential hypertension, benign Atherosclerosis of [place] coronary artery of [place] heart with stable angina pectoris (CMS/HCC V24) FIT-DNA Routine 11/03/2023 DEPRESSION SCREENING Routine 10/26/2023 FALLS RISK ASSESSMENT Routine 10/26/2023 HEPATITIS C SCREENING Routine 07/12/2023 LIPID PANEL Routine 07/08/2023 from Last 3 Months or Most Recently Relevant to Health Maintenance Results * (ABNORMAL) Basic metabolic panel (03/13/2024 8:34 AM EST) Sodium 141 133 - 145 mmol/L LAB CHEMISTRY METHOD 03/13/2024 10:02 AM EST [facility] Potassium 4.7 3.5 - 5.5 mmol/L LAB CHEMISTRY METHOD 03/13/2024 10:02 AM [facility] Chloride 104 96 - 110 mmol/L LAB CHEMISTRY METHOD 03/13/2024 10:02 AM [facility] CO2 32 21 - 32 mmol/L LAB CHEMISTRY METHOD 03/13/2024 10:02 AM [facility] Anion Gap 5 3 - 11 LAB CHEMISTRY METHOD 03/13/2024 10:02 AM [facility] Glucose 114(H) 70 - 100 mg/dL LAB CHEMISTRY METHOD 03/13/2024 10:02 AM [facility] BUN 16 5 - 25 mg/dL LAB CHEMISTRY METHOD 03/13/2024 10:02 AM [facility] Creatinine 1.24 0.70 - 1.30 mg/dL LAB CHEMISTRY METHOD 03/13/2024 10:02 AM [facility] eGFR 64 >=60 mL/min/1. 73m2 LAB CHEMISTRY METHOD 03/13/2024 10:02 AM [facility] Comment:Calculation based on the Chronic Kidney Disease Epidemiology Collaboration (CKD-EPI) equation refit without adjustment for race. BUN/Creatinine Ratio 12.9 LAB CHEMISTRY METHOD 03/13/2024 10:02 AM [facility] Calcium 9.4 8.5 - 10.5 mg/dL LAB CHEMISTRY METHOD 03/13/2024 10:02 AM [facility] Blood Venous blood specimen / Unknown Venipuncture / Unknown 03/13/2024 8:34 AM EST 03/13/2024 8:34 AM EST us Lida Emmanuel MD LAB BLOOD ORDERABL ES Final Result [facility] [address] [place] [address], * FIT-DNA (Cologuard) (11/03/2023) [facility] Colorectal Cancer Screening: FIT-DNA (Cologuard) abstracted, no interpretation [facility] Provider ME HEALTH MAINTENANCE Final Result * Falls Risk Assessment (10/26/2023) [facility] Falls Risk Assessment abstracted Result [facility] HEALTH MAINTENANCE Final Result * Depression Screening (10/26/2023) [facility] Depression Screening abstracted Result [facility] HEALTH MAINTENANCE Final Result * Hepatitis C Screening (07/12/2023) [facility] Hepatitis C Screening abstracted Result [facility] HEALTH MAINTENANCE Final Result * (ABNORMAL) Lipid panel (07/08/2023) [facility] LDL/HDL Ratio 3 0 - 4 Triglycerides 178(A) 0 - 150 mg/dL Cholesterol 147 0 - 200 mg/dL HDL 49 >=40 mg/dL LDL Cholesterol 63 0 - 100 mg/dL Blood Venous blood specimen / Unknown Result [facility] LAB BLOOD ORDERABLES Gabby l Result from Last 3 Months or Most Recently Relevant to Health Maintenance Insurance MEDICARE [facility] [employer] Care Teams Briar Wood Sorter Relationship Specialty Start Date End Date Lida Emmanuel MD [address] [place] [id number] PCP - General 01/14/23
--- OUTSIDE RECORDS SUMMARY | 2024-10-22 07:54 | XMS_ITS | Patient Health Record ---
Author Organization [facility] Address [address] [place] [address] Care Team Providers Care Metallurgical Tester Name Role Phone Ml (RETIRED) Gianluca ESTEVEZ Primary Care Provide r Unavailable Julito Rowland Jr Unavailable Reason For Referral No Information Medications Medication SIG (Take, Route, Frequency, Duration) Notes Start Date End Date Status Atorvastatin Calcium 80 MG TAKE 1 TABLET BY MOUTH ONCE DAILY Orally Once a day Active Aspirin Low Dose 81 MG TAKE 1 TABLET BY MOUTH ONCE DAILY Orally Once a day Active Metoprolol Succinate ER 100 MG TAKE 1 TABLET BY MOUTH ONCE DAILY Orally Once a day Active Lisinopril 5 MG TAKE 1 TABLET BY AGUILA TH ONCE DAILY Orally Once a day Active Immunizations Vaccine Route Administration Date Status Comme nts Influenza Unknown 02/02/2019 Administered Social History Tobacco Use: Social History Observation Description Date Details (start date - stop date) Never Smoker NA - NA Tobacco Use/Smoking Question Answer Notes Patient is a nonsmoker Alcohol Screen Question Answer Notes Did you have a drink containing alcohol in the p ast year? No Points 0 Interpretation Negative Problems Problem Type SNOMED Code ICD Code Onset Dates Problem Status W/U Status Risk Notes Problem 695997755 Colon cancer screening (Z12.11) Active confirmed Problem 893479760 Long-term use of aspirin therapy (Z79.82) Active confirmed Plan Of Treatment Future Test Test Name Order Date COLONOSCOPY 05/09/2019 Insurance Providers Payer Name Payer Address Payer Phone Subscriber Number Group Number Insured Name Patient Relationship to Insured Coverage Start Date Coverage End Date [facility] [address] [address] [place], [place] [id number] AARON BYRD Self - patient is the insured Medical (General) History Medical History History ICD Code hypertension elevated cholesterol Surgical History Surgery Date(Month/Year) excision perirectal fistula 2014
[2024-10-22 09:41] LABS: Anion Gap 13 (12-20); Blood Urea Nitrogen 16 mg/dL (9-16); Calcium 8.8 mg/dL (8.4-10.2); Carbon Dioxide 29 mmol/L (22-29); Chloride 105 mmol/L (96-108); Estimated Glomerular Filt Rate > 60; Potassium 3.9 mmol/L (3.3-5.1); Sodium 143 mmol/L (135-145)
== END 2024-10-22 07:51 | disposition home or self-care (01) ==
LOC: HO.LAB 07:50
PROVIDERS: PCP Internal Medicine
DX: I10 Essential (primary) hypertension (principal)
CPT/HCPCS: 36415; 80048

== ENCOUNTER 2024-11-01 13:38 | Outpatient (AMB) | payer OTHER, SELFPAY ==
--- OUTSIDE RECORDS SUMMARY | 2024-10-31 15:00 | XMS_ITS | Encounter Summary ---
Author Organization [facility] Address [address] [place] [address] Care Team Providers Care Probate Paralegal Name Role Phone Lida Emmanuel MD Primary Care Prov ider Encounter Details Date Type Department Care Team (Latest Contact Info) Description 10/31/2024 3:00 PM EDT Clinical Support Adult [address] [phone] B12 deficiency (Primary Dx) Social History Tobacco Use Types Packs/Day Years [...] as of this encounter Progress Notes * Sharon Crow MA - 10/31/2024 3:00 PM EDT B12 injection given left deltoid. See medication/immunization tab. Patient to remain 20 minutes. documented in this encounter Plan of Treatment Upcoming Encounters Date Type Department Care Team (Late st Contact Info) Description 11/05/2024 1:30 PM EDT Office Visit Orthopedic Surgery - [place] [phone] [phone] Aaron Sullivan DPM [address] [address] 11/28/2024 3:00 PM EDT Clinical Support Adult Medicine [address] [phone] 12/14/2024 1:00 PM EDT Office Visit Adult Medicine [address] [phone] Lida Emmanuel MD [address] [place] [address] documented as of this encounter Visit Diagnoses Diagnosis B12 deficiency- Primary documented in this encounter Administered Medications Active Administered Medications - up to 3 most recent administrations Medication Order MAR Action Action Date Dose Rate Site cyanocobalamin (VITAMIN B-12) injection 1,000 mcg 1,000 mcg, intramuscular, See admin instructions, Starting on Tue06/12/24 at 1359, For 9 doses, 1000 MCG Q WEEK X 4 WEEKS THEN Q MONTHIndications:B12 deficiency Given 10/31/2024 2:56 PM EDT 1,000 mcg Left Deltoid Given 10/03/2024 3:00 PM EDT 1,000 mcg Ri ght Deltoid Given 08/29/2024 2:40 PM EDT 1,000 mcg Le ft Deltoid documented in this encounter Additional Health Concerns Assessment Noted Time PHQ-9 Depression Total Score: 5 06/13/19 25 1:43 PM EDT documented as of this encounter Care Teams Probate Paralegal Relationship Specialty Start Date End Date Lida Emmanuel MD [address] [place] [address] PCP - General 01/14/23 documented as of this encounter
[2024-11-01 13:41] VITALS: BP 128/70; PULSE 65; O2SAT 96; BMI 41.6
--- NOTE | 2024-11-01 13:41 | MHC.OFFVIS ---
Vital Signs 11/01/24 13:41 Height 5 ft 8 in Weight 273 lb 5.971 oz BMI 41.6 BP 128/70 Position Sitting Pulse 65 Pulse Source Pulse Oximeter Pulse Oximetry (%) 96 Oxygen Delivery Method Room Air Intake Visit Reasons: Obstructive sleep apnea Allergies perflutren Adverse Reaction (Verified 11/01/24 13:44) Back Pain HPI Comments Details: The patient is a 68-year-old gentleman with a known history of obesity and obstructive sleep apnea. He states that many years ago he had a sleep study at [facility] and was placed on CPAP. At that time he was eating late and also drinking alcohol. He subsequently stop that. His machine is very old and he has not been getting any supplies. Therefore he has not been using it. He does sleep and wakes up short of breath at times. He also has significant snoring based on his says history. Also he does wake up tired with an [place] score elevated 10/24. The patient also has been complaining of dyspnea on exertion. 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 After 3-4 minutes walking he has been demonstrating some worsening shortness of breath moderate severity along with chest pressure. Substernal. Nonradiating. Usually the symptoms of side after minute and then he goes back to walking to his job. This is very concerning. The patient does take aspirin and does have nitroglycerin. He has not had a sleep study. He has other cardiovascular risk. In the office we did taken for 6 minutes walk test the patient did have to stop after 4 minutes because the chest pressure. He did not desaturate. Had an x-ray demonstrating atelectasis at the bases likely from hypo expansion of the lungs due to his abdominal pressures and body habitus. He did undergo sleep study demonstrating mild sleep apnea. He did also have episodes of desaturation down to the high 70s and heart rate elevations up to the 100. In view of his underlying cardiac disease even though he has mild disease this needs to be treated. Therefore I will send a CPAP prescription to a local [employer] company for him to be set up. Today the patient is here for pulmonary follow-up visit. Overall he is doing well. He is tolerating CPAP therapy. The therapy has been affecting beneficial. He does use it for more than 4 hours a night. He did follow-up with cardiology in he does have coronary artery disease. At this point has stable angina. He is responding well to the cardioprotective medications. He still has some chest discomfort at times if he walks for long duration. He still having issues with his job where the parking as far away and is hard for him to walk distance without getting chest discomfort. Therefore is not on reasonable for him to continue finding a close parking until he builds up the stamina to be able to walk further. 04/10/2020 the patient is here for pulmonary follow-up visit. Overall the patient has been doing very well. He has been trying to get used to the CPAP therapy. The CPAP therapy continues to be affecting beneficial. Sometimes he struggles to use it more than 4 hours a night. He feels like is making his breathing worse and he has to take off his machine. I did download the machine in appears to require a median pressure of 13.5 cm and a maximum pressure of 16 cm. Right now that is the maximum pressure machine.His AHI is below 5. The patient appears to have a difficult time tolerating the higher pressures specially when he goes above 14 cm. Therefore I adjusted his machine APAP 8-14. If the patient still has difficulties tolerating the pressures and or these pressures not enough then we can consider BiPAP therapy in order to effective treat him with higher pressure settings. He continues to have shortness of breath continues to have underlying heart disease. He has underlying stable angina. He will follow up with territory sales consultant. He still getting shortness of breath chest discomfort when walking some distances. We did provide him with a letter for him to be able to park closer to his job in order to avoid symptoms such as stated above. I did provide him with the placard papers that he can bring to his territory sales consultant and see if the symptom that they can do for him for his cardiac issues. 10/16/2020 the patient is here for a pulmonary follow-up visit. The patient overall has been stable on the current therapy. He has been using his CPAP with good response. He has good adherence to the therapy. The therapy has been affecting beneficial. He does use it more than 4 hours a night. He is tolerating the higher pressures. he has been demonstrating worsening lower extremity edema. The patient needs to use his compression stockings. Provided with a prescription in order for him to get them of the [employer]. He continues to take his cardioprotective medications. It appears that his CAD he is extensive and not amendable percutaneous coronary intervention. Therefore he will likely need cardiac bypass surgery. 07/14/2021 the patient is here for a pulmonary follow-up visit. Overall the patient has been doing good. He has gotten really used to his CPAP. He does use it every night. The therapy has been affecting beneficial. His mask fitting is good. we were able to download his machine. Appears that his AHI slightly elevated at 5.6. His average pressure tends to be closer to 14 cm. Therefore, will go ahead and adjust his machine to 10-18 cm with a ramp of 8 cm. As far as the breathing appears to be stable. He is not using any inhalers. He does have lower extremity edema. He did have compression stockings but they broke. He continues to have a cough which is usually worse at nighttime. Moderate severity. Likely postnasal drip or upper airway cough syndrome. 01/25/2022 the patient is here for pulmonary follow-up visit. Overall the patient has been doing well with CPAP. He continues to tolerate the CPAP every night. He does use it for more than 4 hours a night. The therapy has been affecting beneficial. He is tolerating the higher pressures. He does complaint of significant nasal congestion and cough. This is an ongoing issue. He has tried fluticasone nasal spray addition to some allergy medicines. However, no significant relief. We did talk about the Neti rinse that he can perform before the CPAP. I did provide him with a bottle and showed him a video to given instructions on how to use it. He understands that he needs to use the same distilled water that he uses for his machine. In the meantime he continue the fluticasone nasal spray more regularly and also add Astelin nasal spray to see if he gets additional relief. If he continues having symptoms then potential laboratory testing may be warranted for allergy testing. Patient also is recovering from arthroscopy of his knee. Tolerated the surgery well with anesthesia. He did not undergo any cardiac interventions. He is still on cardioprotective medications and doing clinically well. 11/01/2023 the patient is here for pulmonary follow-up visit. Overall the patient has been doing well from a respiratory status. He is using the CPAP every night. The CPAP therapy has been affecting beneficial. Does use it more than 4 hours a night. We did download her machine. He is machine now for about 5 months this is new 1 and his compliance 100%. His AHI is down to 3.3 and he is happy with pressures at this time so will continue with the APAP 10-18. The patient also complains of nasal congestion. Specially when he uses the CPAP. He has responded well to the Astelin to the fluticasone nasal spray. Will go ahead and send those to the pharmacy at this time. The patient is also recommended to rinse his nose prior to putting on the CPAP to minimize sinus congestion and obstruction. From a cardiac standpoint the patient does have aortic stenosis that believe. He is being evaluated from Cardiology standpoint he may need to have a aortic valve replacement. He is also being evaluated for other cardiovascular and peripheral vascular disease. 11/01/2024 the patient is here for pulmonary follow-up visit. Overall he is doing well. He did undergo cardiac surgery and seems to be recovering okay. Still having some burning sensation in the chest area. He did finish cardiac rehabilitation now exercises on his own. He has been using the CPAP. The CPAP therapy continues to be affecting beneficial he does use it for more than 4 hours a night. I did look at a download. AHI is averaging around 3.8. Average pressures from 15 in the maximum pressure is 18 which is the highest pressure setting on his current APAP. Therefore I did adjust the machine 12-20 with the hopes that we can decrease the AHI some. From a respiratory status otherwise is doing well. Continues use a fullface mask. Will go ahead and request supplies from his [employer] company and follow-up in a year's time if any issues arise prior to that he will call for an earlier assessment. [facility] Medical History Chest pain On beta marley at home Pre-diabetes HTN (hypertension) CAD (coronary artery disease) Limb swelling Heart disease Dyspnea LOWELL on CPAP Surgical History S/P cardiac catheterization History of right knee surgery (12/23/21) Hx of hemorrhoidectomy Hx of colonoscopy Family History Mother Arrhythmia HTN (hypertension) Father No problems noted. Social History Alcohol intake: never Patient Tobacco Use Status: Never used Tobacco Review of Systems Const Denies weakness ENT Denies dizziness, Reports nasal congestion, Reports nasal discharge and Reports post nasal drip Card Denies chest pain, Denies chest pain with activity, Reports leg edema, Denies lightheadedness, Denies palpitations, Denies dyspnea and Denies dyspnea on exertion Resp Denies cough, Denies dyspnea and Denies dyspnea on exertion GI Denies hematochezia and Denies change in stool character Musc Denies abnormal gait, Denies muscle weakness, Denies numbness, Denies radiating pain into limb and Denies tingling Neuro Denies abnormal gait, Denies dizziness, Denies numbness, Denies tingling and Denies weakness Endo Denies palpitations Physical Exam Vital Signs: Last Vital Signs Pulse 65 11/01/24 13:41 BP 128/70 11/01/24 13:41 Pulse Ox 96 11/01/24 13:41 Oxygen Delivery Method Room Air 11/01/24 13:41 BMI result Body Mass Index 41.6 Const General: alert Neck Neck: Yes normal visual inspection, Yes full ROM and Yes no lymphadenopathy Chest Chest palpation & inspection: normal inspection of the chest Resp Auscultation: diminished lung sounds Cardio Rate: regular rate Rhythm: regular rhythm Heart sounds: S1 normal heart sound present and S2 normal heart sound present GI Palpation (GI): Soft to palpation and nontender Auscultation: normal bowel sounds Skin General skin exam: rashes and/or lesions noted Extrem General: Yes edema Assessment & Plan Assessment & Plan (1) LOWELL on CPAP: Code(s): G47.33 - Obstructive sleep apnea (adult) (pediatric); Z99.89 - Dependence on other enabling machines and devices Category: Medical (2) Limb swelling: Code(s): M79.89 - Other specified soft tissue disorders Category: Medical (3) Dyspnea: Comment: multifactorial. Does have underlying heart disease Code(s): R06.00 - Dyspnea, unspecified Category: Medical Qualifiers: Dyspnea type: dyspnea on exertion Qualified Code(s): R06.00 - Dyspnea, unspecified (4) Heart disease: Code(s): I51.9 - Heart disease, unspecified Category: Medical Plan continue APAP therapy 18-->-20, FM Continue using compression stockings Continue cardioprotective meds neti rinsing at night/nasal rinsng continue fluticasone continue Astelin nasal spray F/U 12 months Coding Level of Care Code Tele Est Pt Level 4 (45245) Diagnoses LOWELL on CPAP G47.33; Z99.89 Limb swelling M79.89 Dyspnea on exertion R06.00 Dyspnea type: dyspnea on exertion Heart disease I51.9 Time Spent (min) 16
--- OUTSIDE RECORDS SUMMARY | 2024-11-01 13:53 | XMS_ITS | Patient Health Record ---
Author Organization [facility] Address [address] [place] [address] Care Team Providers Care Tailing Machine Operator Name Role Phone Ml (RETIRED) Gianluca ESTEVEZ Primary Care Provide r Unavailable Julito Rowland Jr Unavailable [phone] Reason For Referral No Information Medications Medication [...] Problem Status W/U Status Risk Notes Problem [id number] Colon cancer screening (Z12.11) Active confirmed Problem 456615530 Long-term use of aspirin therapy (Z79.82) Active confirmed Plan Of Treatment Future Test Test Name Order Date COLONOSCOPY 05/09/2019 Insurance Providers Payer Name Payer Address Payer Phone Subscriber Number Group Number Insured Name Patient Relationship to Insured Coverage Start Date Coverage End Date [facility] [address] [address] [place], [place] [id number] AARON BYRD Self - patient is the insured Medical (General) History Medical History History ICD Code hypertension elevated cholesterol Surgical History Surgery Date(Month/Year) excision perirectal fistula 2014
== END 2024-11-01 14:41 | disposition home or self-care (01) ==
LOC: HO.HPS 13:38
PROVIDERS: PCP Internal Medicine; Visit Provider Hospitalist
DX: G47.33 Obstructive sleep apnea (adult) (pediatric) (principal); Z99.89 Dependence on other enabling machines and devices; M79.89 Other specified soft tissue disorders; R06.00 Dyspnea, unspecified; I51.9 Heart disease, unspecified
CPT/HCPCS: 99213

== ENCOUNTER → 2024-11-01 13:38 | Outpatient (BNVA) | payer OTHER, SELFPAY | PROVIDERS: PCP Internal Medicine; Visit Provider Hospitalist | DX: G47.33 Obstructive sleep apnea (adult) (pediatric) (principal); R06.00 Dyspnea, unspecified; E66.9 Obesity, unspecified; R79.89 Other specified abnormal findings of blood chemistry; I51.9 Heart disease, unspecified; Z68.41 Body mass index [BMI] 40.0-44.9, adult; Z99.89 Dependence on other enabling machines and devices | CPT/HCPCS: 99212 ==

== ENCOUNTER 2024-11-19 13:41 | Outpatient (AMB) | payer OTHER, SELFPAY ==
[2024-11-19 14:09] VITALS: BMI 40.3
--- NOTE | 2024-11-19 14:09 | A.OFFVIS_ITS ---
VS Expanded 11/19/24 14:09 Height 5 ft 8 in Weight 264 lb 15.93 oz BMI 40.3 Intake Visit Reasons: obesity Allergies perflutren Adverse Reaction (Verified 11/01/24 13:44) Back Pain Nutrition Presentation Details: Pt presents for MNT f/u for obesity Pt presents with during this appt who is very supportive Pt reports feeling more energetic, working on choosing beverages with no sugar and mindfully working on reducing portion sizes. for Pt reports having water with meals/snack ,no soda/juices Food with calcium including throughout the week : broccoli/ nuts, seeds, broccoli physical actiivity: [employer] bike peddlars, 30-45 minutess), 4-5 times a week BS Monitoring Most Recent Diabetes Results: Creatinine, (0.5-1.4) 1.04 mg/dL 10/22/24 BUN, (9-16) 16 mg/dL 10/22/24 Sodium, (135-145) 143 mmol/L 10/22/24 Potassium, (3.3-5.1) 3.9 mmol/L 10/22/24 Chloride, (96-108) 105 mmol/L 10/22/24 Carbon Dioxide, (22-29) 29 mmol/L 10/22/24 Calcium, (8.4-10.2) 8.8 mg/dL Δ 10/22/24 [facility] Medical History Chest pain On beta marley at home Pre-diabetes HTN (hypertension) CAD (coronary artery disease) Limb swelling Heart disease Dyspnea LOWELL on CPAP Surgical History S/P cardiac catheterization History of right knee surgery (12/23/21) Hx of hemorrhoidectomy Hx of colonoscopy Family History Mother Arrhythmia HTN (hypertension) Father No problems noted. Social History Alcohol intake: never Patient Tobacco Use Status: Never used Tobacco Assessment & Plan Assessment & Plan (1) S/P CABG x 4: Comment: BMI 43.1 on 06/2024), 41.7 (07/27), 41 (09/26), 40.3 kg (11/26) Code(s): Z95.1 - Presence of aortocoronary bypass graft Category: Surgical Plan: Wt: 125 Kg ( 06/19/24 ), 124 kg (07/27), 123 kg (09/26), 120 kg (11/26) Est kcal needs as per MSJ: 2400 (40% carb, 30% protein/fat) Est fluid needs as per 25-30 ml/d: 3600 Est prot per day as per 1 g/kg bw: 120 Recommend fiber intake : 8-10 g per day and gradually increase to 25-28 g per day for women and 35-38 g for men or as tolerated Recommend sodium intake per day : less than 2000 mg Educated patient on: ( R = reviewed V = verbalizes understanding N/R = needs review N/A = not applicable * Food sources of carbohydrate, adequate serving sizes and its role in various health conditions: R * Differences between complex carbohydrates a simple carbohydrates, role of fiber in diet: R * Lean protein sources of foods: R * Differences between types of fats and role in diet (mono on saturated fat fatty acids, saturated fatty acids, trans fats): R basic low fat * Food sources of sodium in salt and healthy modifications for heart health in kidney health: R * Vitamins and minerals: R V N/R * Healthy plate method concept: R * Physical activity: Benefits a precaution: R V * Dietary prevention of Hyperglycemia: R Patient Instructions: Include food sources of calcium daily , up to at least 1000 mg of Calcium per day Continue working on reducing empty calorie foods (pastries/cookies, fried foods ) Coding Level of Care Code Nutr Indiv Subseq (26858) Diagnoses S/P CABG x 4 Z95.1 Time Spent (min) 20
--- OUTSIDE RECORDS SUMMARY | 2024-11-19 14:33 | XMS_ITS | Patient Health Record ---
Author Organization [facility] Address [address] [place] [address] Care Team Providers Care Ticketing Clerk Name Role Phone Ml (RETIRED) Gianluca ESTEVEZ [...] Problem Status W/U Status Risk Notes Problem [id number] Colon cancer screening (Z12.11) Active confirmed Problem [id number] Long-term use of aspirin therapy (Z79.82) Active confirmed Plan Of Treatment Future Test Test Name Order Date COLONOSCOPY 05/09/2019 Insurance Providers Payer Name Payer Address Payer Phone Subscriber Number Group Number Insured Name Patient Relationship to Insured Coverage Start Date Coverage End Date [facility] [address] [address] [place], [place] [phone] [id number] AARON BYRD Self - patient is the insured Medical (General) History Medical History History ICD Code hypertension elevated cholesterol Surgical History Surgery Date(Month/Year) excision perirectal fistula 2014
--- OUTSIDE RECORDS SUMMARY | 2024-11-19 14:34 | XMS_ITS | Clinical Summary ---
Author Organization [address] [facility] Address [address] [place] [address] Phone Care Team Providers Care Ranger Aide Name Role Phone Lida Emmanuel MD Primary [...] DAILY 90 capsule 1 09/25/19 25 Active bisacodyL (DULCOLAX) 5 mg EC tablet TAKE 1 TABLET BY MOUTH EVERY DAY NEEDED FOR CONSTIPATION DO NOT BREAK, CRUSH, DISSOLVE OR CHEW 30 tablet 2 10/25/19 25 Active bisacodyL (DULCOLAX) 5 mg EC tablet Take 1 tablet (5 mg total) by mouth 1 (one) time each day if needed for constipation. Do not crush, chew, or split. 30 tablet 2 06/13/19 25 025 Discontinued Hospital, Clinic, or Other Facility [...] Encounters Date Type Department Care Team Description 11/05/2024 1:30 PM EDT Office Visit Orthopedic [place] [id number] [phone] Aaron Sullivan DPM Pain in both feet (Primary Dx); Hammertoes of both feet; Lumbosacral radiculopathy; Arthritis of both feet; Venous insufficiency; Dermatophytosis, nail 10/31/2024 3:00 PM EDT Clinical Support Adult [address] [phone] B12 deficiency (Primary Dx) 10/03/2024 3:30 PM EDT Clinical Support Adult [address] [phone] B12 deficiency (Primary Dx) 09/17/2024 Telephone Adult Medicine [address] [phone] Lida Stoddard MD Forms/questionnaires (Handicap Placard) 09/03/2024 2:15 PM EDT Office Visit Orthopedic [place] [address] [phone] Aaron Sullivan DPM Pain in both feet (Primary Dx); Arthritis of both feet; Hammertoes of both feet; PAD (peripheral artery disease) ([facility] V24); Dermatophytosis, nail 08/29/2024 3:00 PM EDT Clinical Support [address] [phone] B12 deficiency (Primary Dx) from Last 3 [...] Date Site/Laterality Comments OTHER SURGICAL HISTORY PROCEDURE: [place] HEMORRHOIDECTOMY INTERNAL RUBBER BAND LIGATIONS KNEE SURGERY [...] Care Team (Late st Contact Info) Description 11/28/2024 3:00 PM EDT Clinical Support Adult Medicine [address] [phone] 12/14/2024 1:00 PM EDT Office Visit Adult [address] [phone] Lida Emmanuel MD [address] [place] [address] 01/08/2025 2:30 PM EDT Office Visit Orthopedic Surgery - [place] [address] [phone] Aaron Sullivan, DPM [address] [phone] Health Maintenance Due Date Last Done Comments [...] Completed 07/12/2023 Depression Screening Completed 06/12/2024, 10/26/19 HIB Vaccines Aged Out No longer eligi [...] Procedure Name Priority Date/Time Associated Diagnosis Comments XR LUMBAR SPINE 4+ VIEWS Routine 11/05/2024 1:55 PM EDT Foot pain BASIC METABOLIC PANEL Routine 03/13/2024 8:34 AM EST Essential hypertension, benign Atherosclerosis of [place] coronary artery of [place] heart with stable angina pectoris (CMS/HCC V24) FIT-DNA Routine 11/03/2023 DEPRESSION SCREENING Routine 10/26/2023 FALLS RISK ASSESSMENT Routine 10/26/2023 HEPATITIS C SCREENING Routine 07/12/2023 LIPID PANEL Routine 07/08/2023 from Last 3 Months or Most Recently Relevant to Health Maintenance Results * XR Lumbar Spine 4+ Views (11/05/2024 1:55 PM EDT) Anatomical Region Laterality Modality Spine, L-spine Computed Radiogr aphy 11/05/2024 2:25 PM EDT Impressions 11/05/2024 2:26 PM EDT Degenerative changes as described, most severe at L5-S1. -------- FINAL REPORT -------- Dictated By: Jessica Griffin Dictated Date: 11/05/2024 14:25 ET Assigned Physician: Jessica Griffin Reviewed and Electronically Signed By: Jessica Griffin Signed Date: 11/05/2024 14:26 ET Workstation ID: [id number] Transcribed By: Self Edit Transcribed Date: 11/05/2024 14:25 ET Narrative 11/05/2024 2:26 PM EDT LUMBOSACRAL SPINE, 4 VIEWS INCLUDING OBLIQUES HISTORY: Foot pain. FINDINGS: There is normal alignment of the lumbosacral spine. No fractures are seen. There is mild disc space narrowing with endplate spurring at L4-5. There is moderate disc space narrowing and endplate spurring at L5-S1. There is mild endplate spurring at other levels as well. Procedure Note Jessica Griffin MD - 11/05/2024 LUMBOSACRAL SPINE, 4 VIEWS INCLUDING OBLIQUES HISTORY: Foot pain. FINDINGS: There is normal alignment of the lumbosacral spine. No fractures areseen. There is mild disc space narrowing with endplate spurring at L4-5. Thereis moderate disc space narrowing and endplate spurring at L5-S1. There ismild endplate spurring at other levels as well. IMPRESSION: Degenerative changes as described, most severe at L5-S1. -------- FINAL REPORT -------- Dictated By: Jessica Griffin Dictated Date: 11/05/2024 14:25 ET Assigned Physician: Jessica Griffin Reviewed and Electronically Signed By: Jessica Griffin Signed Date: 11/05/2024 14:26 ET Workstation ID: [id number] Transcribed By: Self Edit Transcribed Date: 11/05/2024 14:25 ET Aaron Sullivan DPM IMG XR PROCEDURES Final Res ult * (ABNORMAL) Basic metabolic panel (03/13/2024 8:34 AM EST) Sodium 141 133 - 145 mmol/L LAB CHEMISTRY METHOD 03/13/2024 10:02 AM [facility] Potassium 4.7 3.5 - 5.5 mmol/L LAB CHEMISTRY METHOD 03/13/2024 10:02 AM [facility] Chloride 104 96 - 110 mmol/L LAB CHEMISTRY METHOD 03/13/2024 10:02 AM [facility] CO2 32 21 - 32 mmol/L LAB CHEMISTRY METHOD 03/13/2024 10:02 AM [facility] Anion Gap 5 3 - 11 LAB CHEMISTRY METHOD 03/13/2024 10:02 AM [facility] Glucose 114(H) 70 - 100 mg/dL LAB CHEMISTRY METHOD 03/13/2024 10:02 AM [facility] BUN 16 5 - 25 mg/dL LAB CHEMISTRY METHOD 03/13/2024 10:02 AM [facility] Creatinine 1.24 0.70 - 1.30 mg/dL LAB CHEMISTRY METHOD 03/13/2024 10:02 AM [facility] eGFR 64 >=60 mL/min/1. 73m2 LAB CHEMISTRY METHOD 03/13/2024 10:02 AM [facility] Comment:Calculation based on the Chronic Kidney Disease Epidemiology Collaboration (CKD-EPI) equation refit without adjustment for race. BUN/Creatinine Ratio 12.9 LAB CHEMISTRY METHOD 03/13/2024 10:02 AM EST [facility] Calcium 9.4 8.5 - 10.5 mg/dL LAB CHEMISTRY METHOD 03/13/2024 10:02 AM EST [facility] Blood Venous blood specimen / Unknown Venipuncture / Unknown 03/13/2024 8:34 AM EST 03/13/2024 8:34 AM EST Lida Emmanuel MD LAB BLOOD ORDERABL ES Final Result [facility] [address] [place] [address], [place] [phone] * FIT-DNA (Cologuard) (11/03/2023) [facility] Colorectal Cancer Screening: FIT-DNA (Cologuard) abstracted, no interpretation [facility] Provider HEALTH MAINTENANCE Final Result * Falls Risk Assessment (10/26/2023) [facility] Falls Risk Assessment abstracted Result [facility] HEALTH MAINTENANCE Final Result * Depression Screening (10/26/2023) [facility] Depression Screening abstracted Result [facility] HEALTH MAINTENANCE Final Result * Hepatitis C Screening (07/12/2023) [facility] Hepatitis C Screening abstracted Result [facility] Provider HEALTH MAINTENANCE Final Result * (ABNORMAL) Lipid panel (07/08/2023) [facility] LDL/HDL Ratio 3 0 - 4 Triglycerides 178(A) 0 - 150 mg/dL Cholesterol 147 0 - 200 mg/dL HDL 49 >=40 mg/dL LDL Cholesterol 63 0 - 100 mg/dL Blood Venous blood specimen / Unknown Result [facility] Provider LAB BLOOD ORDERABLES Gabby l Result from Last 3 Months or Most Recently Relevant to Health Maintenance Insurance MEDICARE [facility] [employer] Care Teams Ranger Aide Relationship Specialty Start Date End Date Lida Emmanuel MD [address] [place] [id number] PCP - General 01/14/23
== END 2024-11-19 14:44 | disposition home or self-care (01) ==
LOC: HO.ENCR 13:42
PROVIDERS: PCP Internal Medicine; Visit Provider Dietitian, Registered
DX: Z95.1 Presence of aortocoronary bypass graft (principal)

== ENCOUNTER → 2024-11-19 13:41 | Outpatient (BNVA) | payer OTHER, SELFPAY | PROVIDERS: PCP Internal Medicine; Visit Provider Dietitian, Registered | DX: Z95.1 Presence of aortocoronary bypass graft (principal) | CPT/HCPCS: 97803 ==